=== PATIENT | female | born 1955 ===

== ENCOUNTER 2017-11-22 22:25 | Emergency (ER) | payer BC ==
--- NOTE | 2017-11-22 22:41 | Emergency Department Record ---
History of Present Illness - General Chief Complaint: Hypotension Stated Complaint: HYPOTENSION Time Seen by Provider: 11/22/17 22:35 Source: Patient Mode of Arrival: Ambulatory Limitations: No limitations - History of Present Illness Initial Comments: 62 yo female presents to ED for evaluation of low blood pressure and dizziness symptoms. Patient reports a history of lower blood pressure (low 100's systolic ), denies recent illness or use of steroids recently. Patient denies any recent medication changes either. Patient reports that she felt dizzy tonight prompting her to check her BP this evening, registered 70's systolic. Complaint: Dizziness, Lightheadedness Onset/Timin -: Hour(s) Timing: Gradual onset Description: Lightheadedness History of Trauma: No Severity: Moderate Improves With: Nothing Worsens With: Nothing Associated Symptoms: Denies other symptoms - [place] Coma Scale Eye Response: (4) Open spontaneously Motor Response: (6) Obeys commands Verbal Response: (5) Oriented [place] Total: 15 - Related Data Allergies Allergy/AdvReac Type Severity Reaction Status Date / Time pioglitazone [From [employer]] Allergy hypotension Verified 11/22/17 22:32 hx-told not to take it Review of Systems Constitutional: Denies: Chills, Fever, Malaise, Night sweats Eyes: Denies: Eye discharge, Eye pain ENT: Denies: Congestion, Ear pain, Epistaxis Respiratory: Denies: Cough, Dyspnea Cardiovascular: Denies: Chest pain, Dyspnea on exertion Endocrine: Denies: Fatigue, Heat or cold intolerance Gastrointestinal: Denies: Abdominal pain, Nausea, Vomiting Genitourinary: Denies: Incontinence, Retention Musculoskeletal: Denies: Arthralgia, Back pain, Gout, Joint swelling Skin: Denies: Bruising, Change in color Neurological: Denies: Abnormal gait, Confusion, Headache, Seizure Psychiatric: Denies: Anxiety Hematological/Lymphatic: Denies: Anemia, Blood Clots Physical Exam - General General Appearance: Alert, Oriented x3, Cooperative, Mild distress Limitations: No limitations - Head Head exam: Atraumatic, Normocephalic, Normal inspection Head exam detail: negative: Abrasion, Contusion, Husain's sign, General tenderness, Hematoma, Laceration - Eye Eye exam: Normal appearance. negative: Conjunctival injection, Periorbital swelling, Periorbital tenderness, Scleral icterus - ENT Ear exam: negative: Auricular hematoma, Auricular trauma Nasal Exam: negative: Active bleeding, Discharge, Dried blood, Foreign body Mouth exam: negative: Drooling, Laceration, Muffled voice, Tongue elevation - Neck Neck exam: Normal inspection. negative: Meningismus, Tenderness - Respiratory Respiratory exam: Decreased breath sounds. negative: Rales, Respiratory distress, Rhonchi, Stridor - Cardiovascular Cardiovascular Exam: Regular rate, Normal rhythm, Normal heart sounds - GI/Abdominal GI/Abdominal exam: Soft. negative: Rebound, Rigid, Tenderness - Rectal Rectal exam: Deferred - exam: Deferred - Extremities Extremities exam: Normal inspection. negative: Calf tenderness, Pedal edema, Tenderness - Back Back exam: Denies: CVA tenderness (R), CVA tenderness (L) - Neurological Neurological exam: Alert, Oriented X3. negative: Motor sensory deficit - Psychiatric Psychiatric exam: Normal affect, Normal mood - Skin Skin exam: Normal color. negative: Abrasion Type of lesion: negative: abrasion Course - Reevaluation(s) Reevaluation #1: 11/22/17 22:40 BP on arrival is 118/68, will obtain basic laboratory studies, initiate IVFs, obtain EKG and monitor in ED. Reevaluation #2: 11/22/17 22:49 EKG: NSR 90 Normal axis, normal intervals LVH, Q waves III, AVF, T wave inversion II, AVF, V6 No change from 09/17/17 Reevaluation #3: 11/22/17 23:42 Labs reviewed, Potassium 4.7, BUN 51, Creatinine 1.8. Glucose 254. No previous labs are available for comparison. [facility]aziz contacted to fax previous BUN/Creatinine levels to ED, patient reports history or renal insufficiency but is unaware of her GFR numbers. BP 120/63 mmHg. Reevaluation #4: 11/23/17 00:53 Abdulaziz is unable to retrieve laboratory studies from 10/04. Patient reports that she believes today's labs are near her baseline, BP 114 systolic, patient appears stable for discharge at this time. Patient reports that she is feeling much better as well. Medical Decision Making - Lab Data Result diagrams: 11/22/17 22:51 11/22/17 22:51 Disposition Disposition: Discharge Clinical Impression: Transient hypotension CRF (chronic renal failure) Qualifiers: Chronic kidney disease stage: stage 3 (moderate) Qualified Code(s): N18.3 - Chronic kidney disease, stage 3 (moderate) Disposition: Home, Self-Care Condition: (2) Stable Instructions: Hypotension (ED) Additional Instructions: Return to ED if your symptoms worsen or if you have any concerns. Follow-up with your family doctor in 3-5 days as directed. Forms: Patient Portal Access Time of Disposition: 00:55 Quality - Quality Measures Quality Measures: N/A - Blood Pressure Screening Does Patient Have Any of the Following: No Blood Pressure Classification: Normal BP Reading Systolic Measurement: 118 Diastolic Measurement: 68 Screening for High Blood Pressure: < Normal BP, F/U Not Required > [G8783]
[2017-11-22] MEDS ORDERED: 0.9 % SODIUM CHLORIDE 1000ML 1,000 ML IV SCH (22:45)
[2017-11-22 23:01] LABS: BASO % 0.8 % (0-6); EOS % 3.6 % (0-6); GRAN % 69.5 % (47-80); HEMATOCRIT 37.8 % (35.0-47.0); HEMOGLOBIN 12.3 gm/dl (11.6-16.0); LYMPH % 20.3 % (16-45); MEAN CELL VOLUME 75.9 fl (81-97); MEAN CORPUSCULAR HEMOGLOBIN 24.7 pg (27-33); MEAN CORPUSCULAR HGB CONC 32.5 g/dl (32-36); MEAN PLATELET VOLUME 11.4 fl (7.4-10.4); MONO % 5.8 % (0-9); PLATELET COUNT 326 K/uL (130-400); RED BLOOD COUNT 4.98 M/uL (3.80-5.40); RED CELL DISTRIBUTION WIDTH 15.7 % (11.5-14.5); WHITE BLOOD COUNT W/O DIFF 11.2 K/uL (4.2-12.2)
[2017-11-22 23:11] LABS: BILIRUBIN,TOTAL < 0.20 mg/dL (0.2-1.0); BLOOD UREA NITROGEN 51 mg/dL (8-23); CREATININE 1.8 mg/dL (0.5-0.9); EST GLOMERULAR FILTRATION RATE 30 mL/min
[2017-11-22 23:14] LABS: GLUCOSE,RANDOM 254 mg/dL (74-109)
[2017-11-22 23:17] LABS: ALB/GLOB RATIO 0.9 (1.1-1.8); ALBUMIN 3.4 g/dL (4.0-5.0); ALKALINE PHOSPHATASE 181 U/L (35-104); ALT/SGPT 5 U/L (<33); AST/SGOT 7 U/L (10.0-35.0)
== END 2017-11-23 01:05 | disposition home or self-care (01) ==
LOC: ER 22:25
DX: I95.89 Other hypotension (principal); E11.22 Type 2 diabetes mellitus with diabetic chronic kidney disease; N18.3 Chronic kidney disease, stage 3 (moderate); R11.0 Nausea; R51 Headache; R42 Dizziness and giddiness; I25.2 Old myocardial infarction
CPT/HCPCS: 80053; 85025; 93005; 93010; 99284; J7030

== ENCOUNTER 2018-05-07 20:37 | Emergency (ER) | payer BC ==
--- NOTE | 2018-05-07 20:51 | Emergency Department Record ---
History of Present Illness - General Chief complaint: Hypogylcemia Stated complaint: DIZZY, LOW BLOOD SUGAR Time Seen by Provider: 05/07/18 20:38 Source: Patient, Family Mode of Arrival: Ambulatory Limitations: No limitations - History of Present Illness Initial comments: 62 yo female presents not feeling well for the last two days. She states she feels fatigue, weak, dizzy. She was concerned about her blood sugar. At 8pm it was low for her at 85. She has a mild headache today. No fever, vomiting, changes in bowel movements. She states her urine has changed to an orange color. No chest pain or shortness of breath. No leg edema. She has CAD,DM,CKD ,HTN. She had an eye appointment today and was told her eyes were fine and unchanged. No vision changes, double vision. She feels like her abdomen is bloated but no vomiting or pain. She states she retains fluids in her abdomen at times. She took a Lasix prior to arrival. Her accu check on arrival was 116. MD Complaint: Generalized weakness -: Days(s) Location: Generalized Severity: Moderate Quality: Other Consistency: Constant Improves with: None Worsens with: None Context: Other Associated Symptoms: Other - [place] Coma Scale Eye Response: (4) Open spontaneously Motor Response: (6) Obeys commands Verbal Response: (5) Oriented [place] Total: 15 - Related Data Previous Rx's Medication Instructions Recorded Cephalexin [Keflex] 500 mg PO QID #28 cap 05/07/18 Allergies Allergy/AdvReac Type Severity Reaction Status Date / Time pioglitazone [From [employer]] Allergy hypotension Verified 11/22/17 22:32 hx-told not to take it Review of Systems Constitutional: Reports: Malaise, Weakness. Denies: Chills, Fever Eyes: Denies: Eye discharge, Eye pain, Photophobia, Vision change ENT: Denies: Congestion, Ear pain, Epistaxis, Throat pain Respiratory: Denies: Cough, Dyspnea, Hemoptysis, Stridor, Wheezes Cardiovascular: Denies: Chest pain, Palpitations, Syncope Endocrine: Reports: Fatigue. Denies: Polydipsia, Polyuria Gastrointestinal: Denies: Abdominal pain, Constipation, Diarrhea, Hematemesis, Hematochezia, Melena, Nausea, Vomiting Genitourinary: Reports: Dysuria, Frequency, Hematuria. Denies: Discharge, Incontinence, Retention, Urgency Musculoskeletal: Denies: Arthralgia, Back pain, Joint swelling, Myalgia, Neck pain Skin: Denies: Bruising, Change in color, Rash Neurological: Reports: Headache, Vertigo, Weakness. Denies: Abnormal gait, Confusion, Numbness, Paresthesias, Seizure, Tingling, Tremors Psychiatric: Denies: Anxiety Hematological/Lymphatic: Denies: Easy bleeding, Easy bruising, Swollen glands Past Medical History - SOCIAL HISTORY Smoking Status: Never smoker - RESPIRATORY Hx Respiratory Disorders: Yes Comment:: Sarcoidosis - CARDIOVASCULAR Hx Cardio Disorders: Yes Hx Heart Attack: Yes Hx Hypotension: Yes Comment:: high chjolesterol - NEURO Hx Neuro Disorders: Yes Hx Neuropathy: Yes - GI Hx GI Disorders: Yes Hx Irritable Bowel: Yes - Hx Genitourinary Disorders: No Comment:: blood clot L kidney - ENDOCRINE Hx Endocrine Disorders: Yes Hx Diabetes: Yes - MUSCULOSKELETAL Hx Musculoskeletal Disorders: No - PSYCH Hx Psych Problems: No - HEMATOLOGY/ONCOLOGY Hx Hematology/Oncology Disorders: No Family Medical History Hx Cancer: Mother, Brother/Sister Hx Diabetes: Mother, Brother/Sister Hx Heart Disease: Father Hx Kidney Disease: Brother/Sister Physical Exam - General General Appearance: Alert, Oriented x3, Cooperative, No acute distress Limitations: No limitations - Head Head exam: Normal inspection - Eye Eye exam: Normal appearance. negative: Conjunctival injection, Scleral icterus - ENT ENT exam: Normal exam, Mucous membranes moist Ear exam: Normal external inspection Nasal Exam: Normal inspection Mouth exam: Normal external inspection Teeth exam: Normal inspection - Neck Neck exam: Normal inspection - Respiratory Respiratory exam: Normal lung sounds bilaterally. negative: Respiratory distress, Rhonchi, Stridor, Wheezes - Cardiovascular Cardiovascular Exam: Regular rate, Normal rhythm, Normal heart sounds - GI/Abdominal GI/Abdominal exam: Soft, Other (Soft abdomen). negative: Distended, Guarding, Rebound, Rigid, Tenderness - Rectal Rectal exam: Deferred - exam: Deferred - Extremities Extremities exam: Normal inspection, Full ROM, Normal capillary refill. negative: Calf tenderness, Pedal edema, Tenderness - Back Back exam: Reports: Full ROM. Denies: CVA tenderness (R), CVA tenderness (L) - Neurological Neurological exam: Alert, CN II-XII intact, Oriented X3. negative: Altered - Psychiatric Psychiatric exam: Normal affect, Normal mood. negative: Agitated, Anxious - Skin Skin exam: Dry, Intact, Normal color, Warm. negative: Abrasion, Cyanosis, Diaphoretic, Erythema, Mottled Course Vital Signs 05/07/18 20:46 Temperature 98 F Pulse Rate [ 97 H Pulse Ox Probe] Respiratory 20 Rate Blood Pressure 154/77 [Left Arm] Pulse Ox 98 - Reevaluation(s) Reevaluation #1: EKG 2103, NSR,rate 86, intervals normal, axis normal, LVH, NS lateral changes. Similar to prior ekg on 01/07/18 Vitals reviewed. No fever or hypoxia 05/07/18 21:41 The CBC was reviewed No acute changes The CMP demonstration BUN/CR increase with likely mild dehydration UA reviewed. Contamination noted but N+,LE+ with bacteria and WBC's. 05/07/18 22:02 Repeat UA reviewed with lab. It is consistent with UTI Nitrite Positive, LE Positive, WBC 7-10, Bacteria +1 Antibiotics ordered with IVF HCT was reviewed and is negative for acute changes. 05/07/18 22:21 The patient was informed of the INR. She takes 2.5mg daily. She has not had her dose tonight. She was instructed to take 5mg then return to normal dosing and call Dr Martin tomorrow. We discussed the UTI and other results. She was encouraged to hydrate well. We discussed reasons for immediate return and follow importance. Medical Decision Making - Lab Data Result diagrams: 05/07/18 20:58 05/07/18 20:58 Lab Results 05/07/18 Range/Units 20:49 POC Glucose 116 H (70-110) mg/dL Disposition Disposition: Discharge Clinical Impression: Urinary tract infection Disposition: Home, Self-Care Condition: (1) Good Instructions: Urinary Tract Infection in Women (ED) Additional Instructions: Take 5mg of Coumadin tonight then back to your normal dose. Recheck your INR in 2-3 days Take the antibiotic every 6 hours Stay hydrated the next 2-3 days Call your doctor tomorrow for a recheck You have a culture that was went for the urinary tract infection that will be available in 3 day Return immediately if you have fever, vomiting, or any concerns that you are not improving. Prescriptions: Cephalexin [Keflex] 500 mg PO QID #28 cap Forms: Patient Portal Access Time of Disposition: 23:14 Quality - Quality Measures Quality Measures: N/A - Blood Pressure Screening Does Patient Have Any of the Following: No Blood Pressure Classification: Normal BP Reading Systolic Measurement: 114 Diastolic Measurement: 75 Screening for High Blood Pressure: < Normal BP, F/U Not Required > [G8783]
[2018-05-07 21:05] LABS: BASO % 0.6 % (0-6); EOS % 6.1 % (0-6); GRAN % 69.7 % (47-80); HEMATOCRIT 40.6 % (35.0-47.0); HEMOGLOBIN 12.8 gm/dl (11.6-16.0); LYMPH % 18.3 % (16-45); MEAN CELL VOLUME 75.2 fl (81-97); MEAN CORPUSCULAR HEMOGLOBIN 23.7 pg (27-33); MEAN CORPUSCULAR HGB CONC 31.5 g/dl (32-36); MEAN PLATELET VOLUME 10.8 fl (7.4-10.4); MONO % 5.3 % (0-9); PLATELET COUNT 303 K/uL (130-400); RED CELL DISTRIBUTION WIDTH 15.7 % (11.5-14.5); WHITE BLOOD COUNT W/O DIFF 11.9 K/uL (4.2-12.2)
[2018-05-07 21:17] LABS: PARTIAL THROMBOPLASTIN TIME 29.4 SECONDS (24.5-39.1); PROTHROMBIN TIME (PATIENT) 10.6 SECONDS (9.5-12.1)
[2018-05-07 21:18] LABS: BILIRUBIN,TOTAL < 0.20 mg/dL (0.2-1.0); BLOOD UREA NITROGEN 35 mg/dL (8-23); CREATININE 1.4 mg/dL (0.5-0.9); EST GLOMERULAR FILTRATION RATE 41 mL/min; TOTAL PROTEIN 7.3 g/dL (6.6-8.7)
[2018-05-07 21:20] LABS: GLUCOSE,RANDOM 107 mg/dL (74-109)
[2018-05-07 21:23] LABS: ALBUMIN 3.7 g/dL (4.0-5.0); ALKALINE PHOSPHATASE 189 U/L (35-104); ALT/SGPT 16 U/L (<33); AST/SGOT 13 U/L (10.0-35.0)
[2018-05-07 21:34] LABS: THYROID STIMULATING HORMONE 1.87 uIU/mL (0.270-4.20)
[2018-05-07] MEDS ORDERED: SODIUM CHLORIDE 0.9% 500 ML IV ONE (21:40)
[2018-05-07 21:51] LABS: URINE APPEARANCE CLOUDY; URINE BILIRUBIN NEGATIVE (NEGATIVE); URINE BLOOD LARGE (NEGATIVE); URINE COLOR YELLOW; URINE KETONE NEGATIVE (NEGATIVE); URINE LEUKOCYTE ESTERASE TRACE (NEGATIVE); URINE NITRITE POSITIVE (NEGATIVE); URINE UROBILINOGEN 0.2 E.U./dL (0.20 - 1.00)
[2018-05-07 21:54] LABS: URINE PROTEIN 300 mg/dL (NEGATIVE)
[2018-05-07] MEDS ORDERED: CEFTRIAXONE SODIUM 1 GM in 0.9 % SODIUM CHLORIDE 100ML 100 ML IVPB ONE (22:01)
[2018-05-07] MEDS ORDERED: CEPHALEXIN 500 MG CAPSULE PO STA (23:11)
--- NOTE | 2018-05-09 06:54 | CT SCAN REPORT ---
DATE: 05/07/2018. EXAM: CT OF THE HEAD WITHOUT CONTRAST. HISTORY: Dizziness. TECHNIQUE: Standard CT imaging through the head with coronal and sagittal reformations without intravenous contrast. COMPARISON: None. FINDINGS: The sulci and ventricles are mildly enlarged from generalized atrophy. No mass effect or midline shift. No intracranial hemorrhage or extra- axial fluid collection is identified. [place]-white matter differentiation is maintained. Minimal mucosal thickening in the right maxillary sinus without layering fluid. The calvarium is unremarkable. IMPRESSION: NEGATIVE NONCONTRAST HEAD CT FOR ACUTE INTRACRANIAL ABNORMALITY. JOB NUMBER: [id number] MTDD
== END 2018-05-07 23:25 | disposition home or self-care (01) ==
LOC: ER 20:37
DX: N39.0 Urinary tract infection, site not specified (principal); R31.29 Other microscopic hematuria; R42 Dizziness and giddiness; R53.83 Other fatigue; R53.1 Weakness; R51 Headache; I13.10 Hypertensive heart and chronic kidney disease without heart failure, with stage 1 through stage 4 chronic kidney disease, or unspecified chronic kidney disease; E11.22 Type 2 diabetes mellitus with diabetic chronic kidney disease; N18.9 Chronic kidney disease, unspecified; I25.2 Old myocardial infarction; Z79.4 Long term (current) use of insulin; Z79.01 Long term (current) use of anticoagulants
CPT/HCPCS: 36416; 70450; 80053; 81003; 82948; 83735; 83880; 84443; 85025; 85610; 85730; 93005; 93010; 96374; 99284

== ENCOUNTER 2018-08-22 20:47 | Emergency (ER) | payer BC ==
[2018-08-22 21:26] LABS: URINE APPEARANCE SL CLOUDY; URINE BILIRUBIN NEGATIVE (NEGATIVE); URINE BLOOD TRACE-I (NEGATIVE); URINE COLOR YELLOW; URINE KETONE NEGATIVE (NEGATIVE); URINE LEUKOCYTE ESTERASE SMALL (NEGATIVE); URINE NITRITE POSITIVE (NEGATIVE); URINE UROBILINOGEN 0.2 E.U./dL (0.20 - 1.00)
[2018-08-22 21:33] LABS: URINE BACTERIA 2+; URINE WBC 21 - 35 (0-2/hpf)
[2018-08-22 21:42] LABS: BASO % 0.7 % (0-6); EOS % 2.6 % (0-6); GRAN % 65.5 % (47-80); HEMATOCRIT 40.6 % (35.0-47.0); HEMOGLOBIN 12.4 gm/dl (11.6-16.0); MEAN CELL VOLUME 79.8 fl (81-97); MEAN CORPUSCULAR HEMOGLOBIN 24.4 pg (27-33); MEAN CORPUSCULAR HGB CONC 30.5 g/dl (32-36); MEAN PLATELET VOLUME 11.5 fl (7.4-10.4); MONO % 8.2 % (0-9); PLATELET COUNT 319 K/uL (130-400); RED BLOOD COUNT 5.09 M/uL (3.80-5.40); RED CELL DISTRIBUTION WIDTH 14.9 % (11.5-14.5); WHITE BLOOD COUNT W/O DIFF 10.6 K/uL (4.2-12.2)
[2018-08-22 21:51] LABS: BILIRUBIN,TOTAL 0.2 mg/dL (0.2-1.0); CREATININE 1.4 mg/dL (0.5-0.9); TOTAL PROTEIN 6.9 g/dL (6.6-8.7)
[2018-08-22 21:54] LABS: PARTIAL THROMBOPLASTIN TIME 27.6 SECONDS (24.5-39.1)
[2018-08-22 21:56] LABS: ALBUMIN 3.5 g/dL (4.0-5.0)
--- NOTE | 2018-08-22 22:01 | Emergency Department Record ---
History of Present Illness - General Chief complaint: Hypogylcemia Stated complaint: TRUBLE WALKING AND SPEAKING Time Seen by Provider: 08/22/18 21:15 Source: Patient, Family, EMS Mode of Arrival: Ambulatory Limitations: No limitations - History of Present Illness Initial comments: pt became confused and just stood staring off. her thought her bs must be low and called 911. it was 88 which is low for her. she was given glucose and seemed to improve. she then seemed to have difficulty walking and with her speech again MD Complaint: Difficulty walking, Generalized weakness Onset/Timin -: Hour(s) Location: Generalized Improves with: Other (questionably with glucose) Associated Symptoms: Denies other symptoms - [place] Coma Scale Eye Response: (4) Open spontaneously Motor Response: (6) Obeys commands Verbal Response: (5) Oriented [place] Total: 15 - Symptoms of Stroke Symptoms of stroke: Onset of Confusion, Slurred Speech, Speech Dysfunction, Unsteady When Walking - Related Data Allergies Allergy/AdvReac Type Severity Reaction Status Date / Time pioglitazone [From [place]] Allergy hypotension Unverified 05/28/18 19:29 hx-told not to take it Travel Screening - Travel/Exposure Within Last 30 Days Have you traveled within the last 30 days?: No Review of Systems Reviewed: No additional complaints except as noted below Constitutional: Reports: As per HPI. Denies: Chills, Fever, Malaise, Night sweats, Weakness, Weight change Eyes: Reports: As per HPI. Denies: Eye discharge, Eye pain, Photophobia, Vision change ENT: Reports: As per HPI. Denies: Congestion, Dental pain, Ear pain, Epistaxis , Hearing loss, Throat pain Respiratory: Reports: As per HPI. Denies: Cough, Dyspnea, Hemoptysis, Stridor, Wheezes Cardiovascular: Reports: As per HPI. Denies: Arrhythmia, Chest pain, Dyspnea on exertion, Edema, Murmurs, Orthopnea, Palpitations, Paroxysmal nocturnal dyspnea, Rheumatic Fever, Syncope Endocrine: Reports: As per HPI. Denies: Fatigue, Heat or cold intolerance, Polydipsia, Polyuria Gastrointestinal: Reports: As per HPI. Denies: Abdominal pain, Constipation, Diarrhea, Hematemesis, Hematochezia, Melena, Nausea, Vomiting Genitourinary: Reports: As per HPI. Denies: Abnormal menses, Discharge, Dyspareunia, Dysuria, Frequency, Hematuria, Incontinence, Retention, Urgency Musculoskeletal: Reports: As per HPI. Denies: Arthralgia, Back pain, Gout, Joint swelling, Myalgia, Neck pain Skin: Reports: As per HPI. Denies: Bruising, Change in color, Change in hair/ nails, Lesions, Pruritus, Rash Neurological: Reports: As per HPI. Denies: Abnormal gait, Confusion, Headache, Numbness, Paresthesias, Seizure, Tingling, Tremors, Vertigo, Weakness Psychiatric: Reports: As per HPI. Denies: Anxiety, Auditory hallucinations, Depression, Homicidal thoughts, Suicidal thoughts, Visual hallucinations Hematological/Lymphatic: Reports: As per HPI. Denies: Anemia, Blood Clots, Easy bleeding, Easy bruising, Swollen glands Past Medical History - SOCIAL HISTORY Smoking Status: Never smoker - RESPIRATORY Hx Respiratory Disorders: Yes Comment:: Sarcoidosis - CARDIOVASCULAR Hx Cardio Disorders: Yes Hx Heart Attack: Yes Hx Hypotension: Yes Comment:: high chjolesterol - NEURO Hx Neuro Disorders: Yes Hx Neuropathy: Yes - GI Hx GI Disorders: Yes Hx Irritable Bowel: Yes - Hx Genitourinary Disorders: No Comment:: blood clot L kidney - ENDOCRINE Hx Endocrine Disorders: Yes Hx Diabetes: Yes - MUSCULOSKELETAL Hx Musculoskeletal Disorders: No - PSYCH Hx Psych Problems: No - HEMATOLOGY/ONCOLOGY Hx Hematology/Oncology Disorders: No Family Medical History Any Significant Family History?: Yes Hx Cancer: Mother, Brother/Sister Hx Diabetes: Mother, Brother/Sister Hx Heart Disease: Father Hx Kidney Disease: Brother/Sister Physical Exam - General General Appearance: Alert, Oriented x3, Cooperative, Mild distress - Head Head exam: Normal inspection - Eye Eye exam: Normal appearance, PERRL, EOMI Pupils: Normal accommodation - ENT ENT exam: Normal exam, Mucous membranes moist, Normal external ear exam, Normal orophraynx Ear exam: Normal external inspection. negative: External canal tenderness Nasal Exam: Normal inspection. negative: Discharge, Sinus tenderness Mouth exam: Normal external inspection, Tongue normal Teeth exam: Normal inspection. negative: Dental caries Throat exam: Normal inspection. negative: Tonsillar erythema, Tonsillar exudate - Neck Neck exam: Normal inspection, Full ROM. negative: Tenderness - Respiratory Respiratory exam: Normal lung sounds bilaterally. negative: Respiratory distress - Cardiovascular Cardiovascular Exam: Regular rate, Normal rhythm, Normal heart sounds - GI/Abdominal GI/Abdominal exam: Soft, Normal bowel sounds. negative: Tenderness - Rectal Rectal exam: Deferred - exam: Deferred - Extremities Extremities exam: Normal inspection, Full ROM, Normal capillary refill. negative: Tenderness - Back Back exam: Reports: Normal inspection, Full ROM. Denies: Muscle spasm, Rash noted, Tenderness - Neurological Neurological exam: Alert, CN II-XII intact, Oriented X3, Other (intermittant gate and speech disturbence). negative: Normal gait - Psychiatric Psychiatric exam: Normal affect, Normal mood - Skin Skin exam: Dry, Intact, Normal color, Warm Stroke Assessment - NIH Stroke Scale 1a. Level of Consciousness: (0) Alert 1b. LOC Questions: (1) Answers 1 Question Correctly 1c. LOC Commands: (0) Performs Tasks Correctly 2. Best Gaze: (0) Normal 3. Visual: (0) No Visual Loss 4. Facial Palsy: (0) Normal Symmetrical Movement 5a. Motor Arm Left: (0) No Drift 5b. Motor Arm Right: (0) No Drift 6a. Motor Leg Left: (0) No Drift 6b. Motor Leg Right: (0) No Drift 7. Limb Ataxia: (2) Present 2 Limbs 8. Sensory: (0) Normal 9. Best Language: (1) Mild/Moderate Aphasia 10. Dysarthria: (0) Normal 11. Extinction/Inattention: (0) No Abnormality NIH Stoke Scale Total: 4 Course Vital Signs 08/22/18 20:51 Temperature 98.2 F Pulse Rate [ 97 H Pulse Ox Probe] Respiratory 20 Rate Blood Pressure 171/85 [Right Arm] Pulse Ox 97 - Reevaluation(s) Reevaluation #1: 08/22/18 22:54 pt had a stuttering course of waxing and waning symptoms. she would have expressive aphasia and ataxia and then improve. currently she once again has expressive aphasia and is unable to answer questions. case was d/w dr lara who wants tpa to be given. risks and benefits explained to including bleedin. is aware. Reevaluation #2: 08/22/18 23:17 pt has improved and is now answering questions appropriately Reevaluation #3: 08/22/18 23:44 pt continues to improve Medical Decision Making - Lab Data Result diagrams: 08/22/18 21:34 08/22/18 21:34 Lab Results 08/22/18 08/22/18 08/22/18 Range/Units 20:52 21:27 21:33 WBC (4.2-12.2) K/uL RBC (3.80-5.40) M/uL Hgb (11.6-16.0) gm/dl Hct (35.0-47.0) % MCV (81-97) fl MCH (27-33) pg MCHC (32-36) g/dl RDW (11.5-14.5) % Plt Count (130-400) K/uL MPV (7.4-10.4) fl Gran % (47-80) % Lymphocytes % (16-45) % Monocytes % (0-9) % Eosinophils % (0-6) % Basophils % (0-6) % PT (9.5-12.1) SECONDS INR APTT (24.5-39.1) SECONDS Sodium (136-145) mmol/L Potassium (3.4-4.5) mmol/L Chloride (98-107) mmol/L Carbon Dioxide (22-29) mmol/L Anion Gap (7-16) BUN (8-23) mg/dL Creatinine (0.5-0.9) mg/dL Estimated GFR mL/min POC Glucose 90 Cancelled (70-110) mg/dL Random Glucose (74-109) mg/dL Calcium (8.8-10.2) mg/dL Total Bilirubin (0.2-1.0) mg/dL AST (10.0-35.0) U/L ALT (<33) U/L Alkaline Phosphatase (35-104) U/L Total Protein (6.6-8.7) g/dL Albumin (4.0-5.0) g/dL Globulin (1.4-4.8) gm/dL Albumin/Globulin Ratio (1.1-1.8) Urine Color Yellow Urine Appearance Sl cloudy Urine pH 6.0 (5.0-8.0) Ur Specific Schroeder 1.020 (1.002-1.030) Urine Protein 100 mg/dl H (NEGATIVE) Urine Glucose (UA) 500 mg/dl H (NEGATIVE) Urine Ketones Negative (NEGATIVE) Urine Blood Trace-i (NEGATIVE) Urine Nitrite Positive H (NEGATIVE) Urine Bilirubin Negative (NEGATIVE) Urine Urobilinogen 0.2 (0.20 - 1.00) E.U./dL Ur Leukocyte Esterase Small H (NEGATIVE) Urine RBC 3 - 6 (NONE SEEN) Urine WBC 21 - 35 (0-2/hpf) Ur Epithelial Cells 7 - 10 (FEW) Urine Bacteria 2+ 08/22/18 08/22/18 08/22/18 Range/Units 21:34 21:34 21:34 WBC 10.6 (4.2-12.2) K/uL RBC 5.09 (3.80-5.40) M/uL Hgb 12.4 (11.6-16.0) gm/dl Hct 40.6 (35.0-47.0) % MCV 79.8 L (81-97) fl MCH 24.4 L (27-33) pg MCHC 30.5 L (32-36) g/dl RDW 14.9 H (11.5-14.5) % Plt Count 319 (130-400) K/uL MPV 11.5 H (7.4-10.4) fl Gran % 65.5 (47-80) % Lymphocytes % 23.0 (16-45) % Monocytes % 8.2 (0-9) % Eosinophils % 2.6 (0-6) % Basophils % 0.7 (0-6) % PT 10.0 (9.5-12.1) SECONDS INR 1.0 APTT 27.6 (24.5-39.1) SECONDS Sodium 142 (136-145) mmol/L Potassium 4.3 (3.4-4.5) mmol/L Chloride 100 (98-107) mmol/L Carbon Dioxide 26.0 (22-29) mmol/L Anion Gap 16.0 (7-16) BUN 30 H (8-23) mg/dL Creatinine 1.4 H (0.5-0.9) mg/dL Estimated GFR 40 mL/min POC Glucose (70-110) mg/dL Random Glucose 91 (74-109) mg/dL Calcium 9.3 (8.8-10.2) mg/dL Total Bilirubin 0.20 (0.2-1.0) mg/dL AST 19 (10.0-35.0) U/L ALT 17 (<33) U/L Alkaline Phosphatase 142 H (35-104) U/L Total Protein 6.9 (6.6-8.7) g/dL Albumin 3.5 L (4.0-5.0) g/dL Globulin 3.4 (1.4-4.8) gm/dL Albumin/Globulin Ratio 1.0 L (1.1-1.8) Urine Color Urine Appearance Urine pH (5.0-8.0) Ur Specific [place] (1.002-1.030) Urine Protein (NEGATIVE) Urine Glucose (UA) (NEGATIVE) Urine Ketones (NEGATIVE) Urine Blood (NEGATIVE) Urine Nitrite (NEGATIVE) Urine Bilirubin (NEGATIVE) Urine Urobilinogen (0.20 - 1.00) E.U./dL Ur Leukocyte Esterase (NEGATIVE) Urine RBC (NONE SEEN) Urine WBC (0-2/hpf) Ur Epithelial Cells (FEW) Urine Bacteria 08/22/18 Range/Units 21:43 WBC (4.2-12.2) K/uL RBC (3.80-5.40) M/uL Hgb (11.6-16.0) gm/dl Hct (35.0-47.0) % MCV (81-97) fl MCH (27-33) pg MCHC (32-36) g/dl RDW (11.5-14.5) % Plt Count (130-400) K/uL MPV (7.4-10.4) fl Gran % (47-80) % Lymphocytes % (16-45) % Monocytes % (0-9) % Eosinophils % (0-6) % Basophils % (0-6) % PT (9.5-12.1) SECONDS INR APTT (24.5-39.1) SECONDS Sodium (136-145) mmol/L Potassium (3.4-4.5) mmol/L Chloride (98-107) mmol/L Carbon Dioxide (22-29) mmol/L Anion Gap (7-16) BUN (8-23) mg/dL Creatinine (0.5-0.9) mg/dL Estimated GFR mL/min POC Glucose 116 H (70-110) mg/dL Random Glucose (74-109) mg/dL Calcium (8.8-10.2) mg/dL Total Bilirubin (0.2-1.0) mg/dL AST (10.0-35.0) U/L ALT (<33) U/L Alkaline Phosphatase (35-104) U/L Total Protein (6.6-8.7) g/dL Albumin (4.0-5.0) g/dL Globulin (1.4-4.8) gm/dL Albumin/Globulin Ratio (1.1-1.8) Urine Color Urine Appearance Urine pH (5.0-8.0) Ur Specific [place] (1.002-1.030) Urine Protein (NEGATIVE) Urine Glucose (UA) (NEGATIVE) Urine Ketones (NEGATIVE) Urine Blood (NEGATIVE) Urine Nitrite (NEGATIVE) Urine Bilirubin (NEGATIVE) Urine Urobilinogen (0.20 - 1.00) E.U./dL Ur Leukocyte Esterase (NEGATIVE) Urine RBC (NONE SEEN) Urine WBC (0-2/hpf) Ur Epithelial Cells (FEW) Urine Bacteria Disposition Disposition: Transfer Clinical Impression: Altered mental status Qualifiers: Altered mental status type: unspecified Qualified Code(s): R41.82 - Altered mental status, unspecified Stroke Qualifiers: CVA mechanism: unspecified Qualified Code(s): I63.9 - Cerebral infarction, unspecified UTI (urinary tract infection) Qualifiers: Urinary tract infection type: acute cystitis Hematuria presence: without hematuria Qualified Code(s): N30.00 - Acute cystitis without hematuria Disposition: Acute Care Hospital Transfer Transfer To: [facility] Reason For Transfer: needs neuro Accepting Physician: kristen romano Time Discussed w/Accepting Physician: 22:45 Forms: Patient Portal Access Quality - Quality Measures Quality Measures: N/A - Blood Pressure Screening Does Patient Have Any of the Following: Active Dx of HTN Blood Pressure Classification: Hypertensive Reading Systolic Measurement: 150 Diastolic Measurement: 78 Screening for High Blood Pressure: Patient Exclusion, Hx of HTN [G9744]
[2018-08-22] MEDS ORDERED: ALTEPLASE 100 MG VIAL IV ONE (23:06)
== END 2018-08-23 00:05 | disposition short-term general hospital (02) ==
LOC: ER 20:47
DX: I63.9 Cerebral infarction, unspecified (principal); R47.01 Aphasia; R27.0 Ataxia, unspecified; N39.0 Urinary tract infection, site not specified; E11.9 Type 2 diabetes mellitus without complications; Z79.84 Long term (current) use of oral hypoglycemic drugs; D86.9 Sarcoidosis, unspecified; E78.00 Pure hypercholesterolemia, unspecified
CPT/HCPCS: 99285 ×2; 96365; 85025; 85730; 85610; 80053; 36416; 81001; 82948; 70450; J2997; 93005; 93010

== ENCOUNTER 2018-11-28 18:27 | Emergency (ER) | payer BC ==
--- NOTE | 2018-11-28 18:56 | Emergency Department Record ---
History of Present Illness - General Chief Complaint: Edema Stated Complaint: VISION PROBLEMS/SWELLING IN FEET Time Seen by Provider: 11/28/18 18:40 Source: Patient, Family Mode of Arrival: Wheelchair - History of Present Illness Initial Comments: 63 yo female presents with about two hours of transient vision alteration. She states at 3 pm everything felt like it was upside down. She stated her appeared upside down. When she later got up things returned to normal. She did not feel any loss of vision, double vision, or pain with vision. This occurred while laying down taking a nap. The symptoms resolved by 5pm and are gone currently. She states when she got up she noted the symptoms were gone. She reports she did have a stroke in August and was treated at [facility]. She has chronic right sided weakness with speech slurring that is currently at her baseline. No other new weakness, numbness or neurologic concerns. She reports two day so swelling in her feet as well. She has a history of CHF. PCP Bri[facility], Neuro [facility], [facility]. She was admitted to [facility] on November 21 with worsening aphasia and right side weakness with low blood pressures that resolved when BP correct. Work up was negative for new stroke. Stroke Team Consult was completed, CT and MRI. She was diagnosed with a UTI during that visit. Onset/Timin -: Hour(s) Location: Other (vision changes) Place: Home Severity: Mild Quality: Other Improves With: None Worsens With: None Context: Other Associated Symptoms: Denies other symptoms - Related Data Allergies/Adverse Reactions: Allergies Allergy/AdvReac Type Severity Reaction Status Date / Time pioglitazone [From Actos] Allergy hypotension Unverified 11/21/18 07:33 hx-told not to take it Travel Screening - Travel/Exposure Within Last 30 Days Have you traveled within the last 30 days?: No Review of Systems Constitutional: Denies: Chills, Fever, Malaise, Weakness Eyes: Reports: Vision change (resolved). Denies: Eye discharge, Eye pain, Photophobia ENT: Denies: Congestion, Throat pain Respiratory: Denies: Cough Cardiovascular: Denies: Chest pain, Syncope Endocrine: Denies: Fatigue Gastrointestinal: Denies: Abdominal pain, Diarrhea, Nausea, Vomiting Genitourinary: Denies: Dysuria Musculoskeletal: Denies: Arthralgia, Back pain, Myalgia Skin: Denies: Bruising, Change in color, Rash Neurological: Reports: Other (Baseline slurred speech with right side weakness) . Denies: Abnormal gait, Confusion, Headache, Numbness, Paresthesias, Seizure, Tingling, Tremors, Vertigo, Weakness Psychiatric: Denies: Anxiety Hematological/Lymphatic: Denies: Anemia Past Medical History - SOCIAL HISTORY Smoking Status: Never smoker - RESPIRATORY Hx Respiratory Disorders: Yes Comment:: Sarcoidosis - CARDIOVASCULAR Hx Cardio Disorders: Yes Hx Heart Attack: Yes Hx Hypotension: Yes Comment:: high chjolesterol - NEURO Hx Neuro Disorders: Yes Hx CVA: Yes () Hx Neuropathy: Yes - GI Hx GI Disorders: Yes Hx Irritable Bowel: Yes - Hx Genitourinary Disorders: No Comment:: blood clot L kidney - ENDOCRINE Hx Endocrine Disorders: Yes Hx Diabetes: Yes - MUSCULOSKELETAL Hx Musculoskeletal Disorders: No - PSYCH Hx Psych Problems: No - HEMATOLOGY/ONCOLOGY Hx Hematology/Oncology Disorders: No Family Medical History Any Significant Family History?: Yes Hx Cancer: Mother, Brother/Sister Hx Diabetes: Mother, Brother/Sister Hx Heart Disease: Father Hx Kidney Disease: Brother/Sister Physical Exam - General General Appearance: Alert, Oriented x3, Cooperative, No acute distress Limitations: No limitations - Head Head exam: Atraumatic, Normocephalic, Normal inspection Head exam detail: negative: Abrasion, Contusion, Laceration - Eye Eye exam: Normal appearance, PERRL, EOMI, Other (No deficit in all 4 quandrants of both eyes, sees movement, counts fingers, ). negative: Conjunctival injection, Nystagmus, Periorbital swelling, Periorbital tenderness Pupils: Normal accommodation. negative: Irregular, Unequal - ENT ENT exam: Normal exam, Mucous membranes moist Ear exam: Normal external inspection Nasal Exam: Normal inspection Mouth exam: Normal external inspection Teeth exam: Normal inspection Throat exam: Normal inspection - Neck Neck exam: Normal inspection, Full ROM. negative: Tenderness - Respiratory Respiratory exam: Normal lung sounds bilaterally. negative: Respiratory distress - Cardiovascular Cardiovascular Exam: Regular rate, Normal rhythm, Normal heart sounds Peripheral Pulses: 2+: Radial (R), Radial (L) - GI/Abdominal GI/Abdominal exam: Soft. negative: Tenderness - Rectal Rectal exam: Deferred - exam: Deferred - Extremities Extremities exam: Normal inspection, Pedal edema (+1 in feet) - Back Back exam: Denies: CVA tenderness (R), CVA tenderness (L) - Neurological Neurological exam: Alert, CN II-XII intact, Motor sensory deficit (Mild chronic stable RLE weakness. She is able to overcome gravity easily but less than Left) , Oriented X3, Other (No drift of bilateral upper extremities). negative: Altered - Psychiatric Psychiatric exam: Normal affect, Normal mood - Skin Skin exam: Dry, Intact, Normal color, Warm Course Vital Signs 11/28/18 18:44 Temperature 97.9 F Pulse Rate [ 89 Pulse Ox Probe] Respiratory 16 Rate Blood Pressure 186/105 [Left Arm] Pulse Ox 97 - Reevaluation(s) Reevaluation #1: EKG#1 18:36 Sinus rhythm, rate 88, intervals normal, axis normal, ST LVH with strain, poor R wave, NO changes from the prior EKG on 08/22/18 11/28/18 18:57 11/28/18 18:58 The patient is at her baseline with mild dysarthria and mild RLE drift No new current neurologic deficits on examination. No subjective or objective vision changes currently. 11/28/18 19:30 EMR reviewed. The patient was admitted to [facility] on November 21, CT, MRI, Neuro consult. Neuro consult: "right side weak, aphasia", Transient symptoms with low blood pressure. Occlusion of the ICA. She is symptomatic with hypotension. Treat with permissive hypertension. Impression. No new stroke. re-expression due to low blood pressure and UTI. Stroke team signed off. MRI reviewed 11/28/18 19:37 The CMP was reviewed No acute changes The INR is 1.2 11/28/18 20:10 Resting comfortably, remains at baseline 11/28/18 20:54 No acute process or changes on the HCT. Old infarct noted. The patient is at her baseline, asymptomatic We discussed her INR. Coumadin 5mg given in the ED No acute changes on the CT. She had atypical symptoms of things being upside down resolved. She had completed a thorough work up in the last week at [facility] without any new stroke DC with instructions for return/follow up Medical Decision Making - Lab Data Result diagrams: 11/28/18 18:45 11/28/18 18:45 Disposition Disposition: Discharge Clinical Impression: Vision changes Disposition: Home, Self-Care Condition: (1) Good Instructions: Leg Edema (ED) Additional Instructions: Return or be seen immediately if any symptoms return Call your doctor on Saturday for close follow up of this ED visit to review the tests and results Resume your normal Coumadin dosing Check your INR first of the week Take the Lasix Saturday and Saturday only and call your doctor for a recheck first of the week Forms: Patient Portal Access Time of Disposition: 21:01 Quality - Quality Measures Quality Measures: N/A - Blood Pressure Screening Does Patient Have Any of the Following: Active Dx of HTN Blood Pressure Classification: Hypertensive Reading Systolic Measurement: 164 Diastolic Measurement: 93 Screening for High Blood Pressure: Patient Exclusion, Hx of HTN [G9744]
[2018-11-28 18:58] LABS: EOS % 4.6 % (0-6); GRAN % 63.6 % (47-80); HEMATOCRIT 40.4 % (35.0-47.0); HEMOGLOBIN 12.8 gm/dl (11.6-16.0); LYMPH % 24.6 % (16-45); MEAN CELL VOLUME 78.1 fl (81-97); MEAN CORPUSCULAR HEMOGLOBIN 24.8 pg (27-33); MEAN CORPUSCULAR HGB CONC 31.7 g/dl (32-36); MEAN PLATELET VOLUME 11.1 fl (7.4-10.4); MONO % 6.2 % (0-9); PLATELET COUNT 321 K/uL (130-400); RED BLOOD COUNT 5.17 M/uL (3.80-5.40); RED CELL DISTRIBUTION WIDTH 15.7 % (11.5-14.5); WHITE BLOOD COUNT W/O DIFF 9.8 K/uL (4.2-12.2)
[2018-11-28 19:18] LABS: ALB/GLOB RATIO 0.9 (1.1-1.8); ALBUMIN 3.4 g/dL (4.0-5.0); ALKALINE PHOSPHATASE 214 U/L (45-87); ALT/SGPT 26 U/L (<33); AST/SGOT 22 U/L (10.0-35.0); BLOOD UREA NITROGEN 15 mg/dL (8-23); CREATININE 0.8 mg/dL (0.5-0.9); EST GLOMERULAR FILTRATION RATE > 60 mL/min; GLUCOSE,RANDOM 78 mg/dL (74-109); INR 1.2; PARTIAL THROMBOPLASTIN TIME 33.8 SECONDS (24.5-39.1); PROTHROMBIN TIME (PATIENT) 12.4 SECONDS (9.5-12.1); TOTAL PROTEIN 7.3 g/dL (6.6-8.7)
[2018-11-28 20:32] LABS: URINE APPEARANCE CLEAR; URINE BILIRUBIN NEGATIVE (NEGATIVE); URINE BLOOD SMALL (NEGATIVE); URINE COLOR YELLOW; URINE KETONE NEGATIVE (NEGATIVE); URINE LEUKOCYTE ESTERASE NEGATIVE (NEGATIVE); URINE NITRITE NEGATIVE (NEGATIVE); URINE UROBILINOGEN 0.2 E.U./dL (0.20 - 1.00)
[2018-11-28] MEDS ORDERED: WARFARIN 5 MG TAB PO ONE (20:53)
[2018-11-28] MEDS ORDERED: FUROSEMIDE 20 MG TABLET PO ONE ×2 (21:02)
--- NOTE | 2018-11-30 21:05 | CT SCAN REPORT ---
EXAM: CT SCAN HEAD WO CONTRAST HISTORY: TRANSIENT VISUAL CHANGES. HISTORY OF STROKE 08/22/2018. TECHNIQUE: Noncontrast head CT. COMPARISON: Head CT 05/07/2018 and comparison with a prior MRI of the brain report dated 11/22/2018. FINDINGS: Hypodensity is present in the left centrum semiovale and left periventricular region, most likely related to old infarct. There is no mass or mass effect. No intra or extraaxial hemorrhage seen. The ventricles and subarachnoid spaces are mildly prominent but unchanged. No fracture or acute osseous abnormality identified. Mild mucosal thickening seen in the maxillary sinuses. Orbits are unremarkable. No orbital mass identified. IMPRESSION: 1. 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 2. NO MASS, HEMORRHAGE, OR ACUTE INTRACRANIAL PROCESS. 3. MILD BILATERAL MAXILLARY SINUS MUCOSAL THICKENING. JOB NUMBER: [id number] MTDD
== END 2018-11-28 21:26 | disposition home or self-care (01) ==
LOC: ER 18:27
DX: H53.129 Transient visual loss, unspecified eye (principal); R60.0 Localized edema; I95.9 Hypotension, unspecified; I69.351 Hemiplegia and hemiparesis following cerebral infarction affecting right dominant side; I25.2 Old myocardial infarction; E11.9 Type 2 diabetes mellitus without complications; I10 Essential (primary) hypertension; Z79.84 Long term (current) use of oral hypoglycemic drugs; Z79.4 Long term (current) use of insulin; Z79.01 Long term (current) use of anticoagulants
CPT/HCPCS: 70450; 80053; 81003; 83880; 84484; 85025; 85610; 85730; 93005; 93010; 99284

== ENCOUNTER 2019-06-18 16:27 | Emergency (ER) | payer BC ==
--- NOTE | 2019-06-18 17:08 | Emergency Department Record ---
History of Present Illness - General Chief complaint: Eye Problem Stated complaint: ABNORMAL LABS Time Seen by Provider: 06/18/19 16:52 Source: Patient, Family Mode of Arrival: Ambulatory Limitations: No limitations - History of Present Illness Initial comments: The patient is here due to complaints of double vision when looking down for the last 8 days. She has no double vision when looking up or to the sides. She also denies any head pain or blurred vision. The patient has a hx of multiple medical problems including diabetes, renal failure and a recent CVA and is on Coumadin. The patient was [facility] in the [place] office 3 days ago and had an ESR drawn that was 73. Due to that she was told to go to the ER but the patient was not told why. The patient also states the Eye doctor told her that her exam was normal at the visit. MD chief complaint: Vision change, Other Onset/Timin -: Days(s) Location: Both eyes Place: Home Context: History of glaucoma - Related Data Allergies Allergy/AdvReac Type Severity Reaction Status Date / Time pioglitazone [From Actos] Allergy hypotension Verified 06/18/19 16:58 hx-told not to take it Travel Screening - Travel/Exposure Within Last 30 Days Have you traveled within the last 30 days?: No - Travel/Exposure Within Last Year Have you traveled outside the [place] in the last year?: No - Additonal Travel Details Have you been exposed to anyone with a communicable illness?: No - Travel Symptoms Symptom Screening: None Review of Systems Constitutional: Denies: Chills, Fever Eyes: Denies: Eye discharge, Eye pain, Photophobia ENT: Denies: Congestion Respiratory: Denies: Cough, Dyspnea Cardiovascular: Denies: Arrhythmia Endocrine: Denies: Fatigue Gastrointestinal: Denies: Nausea Genitourinary: Denies: Dysuria Musculoskeletal: Denies: Arthralgia Skin: Denies: Bruising Past Medical History - SOCIAL HISTORY Smoking Status: Never smoker Alcohol Use: None Drug Use: None - RESPIRATORY Hx Respiratory Disorders: Yes Comment:: Sarcoidosis - CARDIOVASCULAR Hx Cardio Disorders: Yes Hx Heart Attack: Yes Hx Hypotension: Yes Comment:: high chjolesterol - NEURO Hx Neuro Disorders: Yes Hx CVA: Yes () - GI Hx GI Disorders: Yes Hx Irritable Bowel: Yes - Hx Genitourinary Disorders: No Comment:: blood clot L kidney - ENDOCRINE Hx Endocrine Disorders: Yes Hx Diabetes: Yes - MUSCULOSKELETAL Hx Musculoskeletal Disorders: No - PSYCH Hx Psych Problems: No - HEMATOLOGY/ONCOLOGY Hx Hematology/Oncology Disorders: No Family Medical History Any Significant Family History?: No Hx Cancer: Mother, Brother/Sister Hx Diabetes: Mother, Brother/Sister Hx Heart Disease: Father Hx Kidney Disease: Brother/Sister Physical Exam - General General Appearance: Alert, Oriented x3, Cooperative, No acute distress - Head Head exam: Atraumatic, Normocephalic, Normal inspection, Other (There is no scalp tenderness.) - Eye Eye exam: Normal appearance, PERRL, EOMI. negative: Conjunctival injection Visual acuity (L) = 20/: 40 Visual acuity (R) = 20/: 50 With correction: No - ENT Throat exam: Normal inspection. negative: Tonsillar erythema, Tonsillar exudate - Neck Neck exam: Normal inspection, Full ROM. negative: Tenderness - Respiratory Respiratory exam: Normal lung sounds bilaterally. negative: Respiratory distress - Cardiovascular Cardiovascular Exam: Regular rate, Normal rhythm, Normal heart sounds - GI/Abdominal GI/Abdominal exam: Soft, Normal bowel sounds. negative: Tenderness - Extremities Extremities exam: Normal inspection, Full ROM, Normal capillary refill. negative: Tenderness - Neurological Neurological exam: Abnormal gait (chronic and stable.), Alert, Motor sensory deficit (The patient's motor and sensory appear 5/5 bilaterally and equal. The patient does have balance issues since her CVA and uses a walker. ), Oriented X3, Reflexes normal. negative: Altered, Normal gait - Psychiatric Psychiatric exam: negative: Anxious Course Vital Signs 06/18/19 16:44 Pulse Rate 89 Respiratory 16 Rate Blood Pressure 159/89 Pulse Ox 98 - Reevaluation(s) Reevaluation #1: The patient is doing well at this time. She denies any new symptoms and has no blurred vision, arm or leg numbness, weakness or any headache. I have attempted to contact the patient Opthomologist but have been unsuccessful due to the answering service refusing to contact the television news video editor physician due to [facility] not being part of [facility]. I have discussed the case at length with Dr. Lamar who is the patient's PCP and he will F/U with the Opthomologist tomorrow and also will call the patient for further evaluation. Since the patient has no DOBSON, blurred vision, temporal artery tenderness or body aches I do not feel the patient is having an acute attack of giant cell arteritis. 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 Since she has NO other new neurological symptoms and the double vision when looking down has been stable for 8 days and unchanged I do not feel she will need inpatient treatment. Dr. Lamar did agree with this plan also. The patient did have an ESR of 46 7 months ago and does have Sarcoidosis so the elevated ESR most likely is due to that disease. 06/18/19 18:43 Medical Decision Making - Data Complexity MDM Data: Labs Ordered and/or Reviewed, X-Ray Ordered and/or Reviewed - Lab Data Result diagrams: 06/18/19 17:45 06/18/19 17:45 - Radiology Data Radiology results: Report reviewed (Head CT: Neg for any acute changes.) Disposition Disposition: Discharge Clinical Impression: Diplopia Disposition: Home, Self-Care Condition: (2) Stable Instructions: Diplopia (ED) Additional Instructions: Please call Dr. Lamar's office tomorrow for further evaluation. Please continue your regular medicines and return to the ER for any worsening issues or visual changes. Forms: Patient Portal Access Time of Disposition: 19:07 Quality - Quality Measures Quality Measures: N/A - Blood Pressure Screening View Details: Yes Does Patient Have Any of the Following: No Blood Pressure Classification: Pre-Hypertensive BP Reading Systolic Measurement: 159 Diastolic Measurement: 89 Screening for High Blood Pressure: < Pre-Hypertensive BP, F/U Documented > [G8950] Pre-Hypertensive Follow-up Interventions: Referral to alternative/primary care provider.
[2019-06-18 17:53] LABS: ABSOLUTE NEUTROPHIL COUNT 5.83; BASO % 0.5 % (0-6); GRAN % 66.6 % (47-80); HEMATOCRIT 36.7 % (35.0-47.0); HEMOGLOBIN 11.2 gm/dl (11.6-16.0); LYMPH % 22.7 % (16-45); MEAN CELL VOLUME 78.9 fl (81-97); MEAN CORPUSCULAR HGB CONC 30.5 g/dl (32-36); MEAN PLATELET VOLUME 11.1 fl (7.4-10.4); MONO % 7.2 % (0-9); PLATELET COUNT 292 K/uL (130-400); RED BLOOD COUNT 4.65 M/uL (3.80-5.40); RED CELL DISTRIBUTION WIDTH 14.9 % (11.5-14.5); WHITE BLOOD COUNT W/O DIFF 8.8 K/uL (4.2-12.2)
[2019-06-18 18:01] LABS: CREATININE 1.5 mg/dL (0.5-0.9)
[2019-06-18 18:04] LABS: INR 1.7; PARTIAL THROMBOPLASTIN TIME 33.8 SECONDS (24.5-39.1); PROTHROMBIN TIME (PATIENT) 16.6 SECONDS (9.5-12.1)
[2019-06-18 18:17] LABS: THYROID STIMULATING HORMONE 2.67 uIU/mL (0.270-4.20)
[2019-06-18 18:55] LABS: ERYTHROCYTE SEDIMENTATION RATE 75 mm/hr (0-30)
--- NOTE | 2019-06-21 19:27 | CT SCAN REPORT ---
EXAM: CT SCAN HEAD WO CONTRAST HISTORY: DIPLOPIA WHEN LOOKING DOWN, DIZZINESS, VERTIGO. TECHNIQUE: Standard CT imaging of the brain without intravenous contrast. COMPARISON: 11/28/18. HAND DOMINANCE: Right. FINDINGS: Mild sulcal and ventricular prominence from generalized volume loss. No significant mass effect or midline shift. No intracranial hemorrhage or extraaxial fluid collection is identified. Patchy hypodensity in the white matter is nonspecific but likely chronic small vessel ischemic changes. There is a small remote infarct in the left periventricular white matter. The visualized paranasal sinuses and mastoid air cells are clear. IMPRESSION: STABLE NONCONTRAST HEAD CT WITHOUT ACUTE INTRACRANIAL ABNORMALITY. JOB NUMBER: [id number] MTDD
== END 2019-06-18 19:15 | disposition home or self-care (01) ==
LOC: ER 16:27
DX: H53.2 Diplopia (principal); E11.22 Type 2 diabetes mellitus with diabetic chronic kidney disease; N18.9 Chronic kidney disease, unspecified; I25.2 Old myocardial infarction; Z79.01 Long term (current) use of anticoagulants; Z86.73 Personal history of transient ischemic attack (TIA), and cerebral infarction without residual deficits
CPT/HCPCS: 70450; 80048; 84443; 85025; 85610; 85651; 85730; 99284

== ENCOUNTER 2019-07-07 10:07 | Emergency (ER) | payer BC ==
[2019-07-07] MEDS ORDERED: 0.9 % SODIUM CHLORIDE 1000ML 1,000 ML IV ONE ×2 (10:17→11:30)
[2019-07-07] MEDS ORDERED: ONDANSETRON HCL IV 4 MG/2 ML VIAL IVP ONE (10:17)
--- NOTE | 2019-07-07 10:24 | Emergency Department Record ---
History of Present Illness - General Chief complaint: Vomiting Stated complaint: VOMITING Time Seen by Provider: 07/07/19 10:11 Source: Patient Mode of Arrival: Wheelchair Limitations: No limitations - History of Present Illness Initial comments: 63 yo female presents with nausea and vomiting. She was seen in the [facility] and sent to the ED. The onset was 24 hours ago. She states she thinks she had bad chicken and rice. She has been throwing up since 10am yesterday. No abdominal pain. No chest pain. No back pain. No extremity pain. No shortness of breath. No fever. No diarrhea. Other than the recurrent nausea and vomiting she has no other symptoms. No blood in the emesis. She did start a new medication on 06/26. Abatosarthak. Dr Lamar is her PCP. MD complaint: Nausea, Vomiting Onset/Timin -: Days(s) Description of Vomiting: Watery Description of Diarrhea: Water Associated Abdominal Pain: No Location: Other (No pain) Radiation: None Quality: Other (No pain) Consistency: Constant Improves with: None Worsens with: None Context: Other Associated Symptoms: Nausea/vomiting - Related Data Previous Rx's Medication Instructions Recorded Cephalexin [Keflex] 500 mg PO TID #21 cap 07/07/19 Ondansetron [Zofran Odt] 4 mg PO Q8H #15 tab.rapdis 07/07/19 Allergies Allergy/AdvReac Type Severity Reaction Status Date / Time pioglitazone [From Actos] Allergy hypotension Verified 07/07/19 10:12 hx-told not to take it Travel Screening - Travel/Exposure Within Last 30 Days Have you traveled within the last 30 days?: No Review of Systems Constitutional: Reports: Weakness. Denies: Chills, Fever, Malaise, Night sweats Eyes: Denies: Eye discharge, Eye pain, Photophobia, Vision change ENT: Denies: Congestion, Throat pain Respiratory: Denies: Cough, Dyspnea, Hemoptysis, Stridor, Wheezes Cardiovascular: Denies: Chest pain, Dyspnea on exertion, Palpitations, Syncope Endocrine: Reports: Fatigue. Denies: Polydipsia, Polyuria Gastrointestinal: Reports: Nausea, Vomiting. Denies: Abdominal pain, Constipation, Diarrhea, Hematemesis, Hematochezia, Melena Genitourinary: Denies: Dysuria, Urgency Musculoskeletal: Denies: Arthralgia, Back pain, Joint swelling, Myalgia Skin: Denies: Bruising, Change in color, Rash Neurological: Denies: Headache, Numbness, Weakness Psychiatric: Denies: Anxiety Hematological/Lymphatic: Denies: Easy bleeding, Easy bruising Past Medical History - SOCIAL HISTORY Smoking Status: Never smoker - RESPIRATORY Hx Respiratory Disorders: Yes Comment:: Sarcoidosis - CARDIOVASCULAR Hx Cardio Disorders: Yes Hx Heart Attack: Yes Hx Hypotension: Yes Comment:: high chjolesterol - NEURO Hx Neuro Disorders: Yes Hx CVA: Yes () - GI Hx GI Disorders: Yes Hx Irritable Bowel: Yes - Hx Genitourinary Disorders: No Comment:: blood clot L kidney - ENDOCRINE Hx Endocrine Disorders: Yes Hx Diabetes: Yes - MUSCULOSKELETAL Hx Musculoskeletal Disorders: No - PSYCH Hx Psych Problems: No - HEMATOLOGY/ONCOLOGY Hx Hematology/Oncology Disorders: No Family Medical History Any Significant Family History?: Yes Hx Cancer: Mother, Brother/Sister Hx Diabetes: Mother, Brother/Sister Hx Heart Disease: Father Hx Kidney Disease: Brother/Sister Physical Exam - General General Appearance: Alert, Oriented x3, Cooperative, No acute distress Limitations: No limitations - Head Head exam: Atraumatic, Normal inspection - Eye Eye exam: Normal appearance, PERRL. negative: Conjunctival injection, Scleral icterus - ENT ENT exam: Normal exam, Mucous membranes moist Ear exam: Normal external inspection Nasal Exam: Normal inspection Mouth exam: Normal external inspection Teeth exam: Normal inspection Throat exam: Normal inspection - Neck Neck exam: Normal inspection - Respiratory Respiratory exam: Normal lung sounds bilaterally. negative: Accessory muscle use, Decreased breath sounds, Prolonged expiratory, Respiratory distress, Rhonchi, Stridor, Wheezes - Cardiovascular Cardiovascular Exam: Regular rate, Normal rhythm, Normal heart sounds - GI/Abdominal GI/Abdominal exam: Soft. negative: Distended, Guarding, Rebound, Rigid, Tenderness - Rectal Rectal exam: Deferred - exam: Deferred - Extremities Extremities exam: Normal inspection. negative: Pedal edema, Tenderness - Back Back exam: Reports: Full ROM. Denies: CVA tenderness (R), CVA tenderness (L), Tenderness - Neurological Neurological exam: Alert, Oriented X3 - Psychiatric Psychiatric exam: Normal affect, Normal mood - Skin Skin exam: Dry, Intact, Normal color, Warm Course Vital Signs 07/07/19 10:09 Temperature 99.1 F Pulse Rate 93 H Respiratory 18 Rate Blood Pressure 196/98 Pulse Ox 96 - Reevaluation(s) Reevaluation #1: 07/07/19 11:37 The labs were reviewed WBC is 15 The CR is 1.2 improved from prior or 1.5 The INR is 1.2 The patient's pharmacist is in the ED and will adjust the coumadin Lovenox will be given today in the ED The patient is feeling better waiting for completion of the IVF 07/07/19 12:44 The UA is consistent with UTI The urine will be cultured She has been doing well. DC on Keflex and Zofran Her pharmacist (Tung) is aware and will follow up the INR Medical Decision Making - Lab Data Result diagrams: 07/07/19 10:25 07/07/19 10:25 Disposition Disposition: Discharge Clinical Impression: Urinary tract infection Nausea and vomiting Qualifiers: Vomiting type: unspecified Vomiting Intractability: unspecified Qualified Code(s): R11.2 - Nausea with vomiting, unspecified Disposition: Home, Self-Care Condition: (1) Good Instructions: Acute Nausea and Vomiting (ED), Urinary Tract Infection in Women (ED) Additional Instructions: Call your doctor for the next available follow up appointment Review this ER visit and the tests performed with your family doctor Return to the ER for a recheck if worse, any new concerns or questions Take the prescriptions provided as directed Prescriptions: Cephalexin [Keflex] 500 mg PO TID #21 cap Ondansetron [Zofran Odt] 4 mg PO Q8H #15 tab.rapdis Forms: Patient Portal Access Time of Disposition: 12:45 Quality - Quality Measures Quality Measures: N/A - Blood Pressure Screening Does Patient Have Any of the Following: Active Dx of HTN Blood Pressure Classification: Hypertensive Reading Systolic Measurement: 196 Diastolic Measurement: 98 Screening for High Blood Pressure: Patient Exclusion, Hx of HTN [G9744]
[2019-07-07 10:35] LABS: ABSOLUTE NEUTROPHIL COUNT 13.76; HEMATOCRIT 40.1 % (35.0-47.0); HEMOGLOBIN 12.2 gm/dl (11.6-16.0); MEAN CELL VOLUME 79.4 fl (81-97); MEAN CORPUSCULAR HEMOGLOBIN 24.2 pg (27-33); MEAN CORPUSCULAR HGB CONC 30.4 g/dl (32-36); PLATELET COUNT 301 K/uL (130-400); RED BLOOD COUNT 5.05 M/uL (3.80-5.40); RED CELL DISTRIBUTION WIDTH 15.3 % (11.5-14.5); WHITE BLOOD COUNT W/O DIFF 15.7 K/uL (4.2-12.2)
[2019-07-07 10:45] LABS: CREATININE 1.2 mg/dL (0.5-0.9)
[2019-07-07 10:46] LABS: BILIRUBIN,TOTAL 0.4 mg/dL (0.2-1.0); TOTAL PROTEIN 6.9 g/dL (6.6-8.7)
[2019-07-07 10:51] LABS: ALBUMIN 3.4 g/dL (4.0-5.0)
[2019-07-07 11:11] LABS: INR 1.2; PROTHROMBIN TIME (PATIENT) 12.5 SECONDS (9.5-12.1)
[2019-07-07] MEDS ORDERED: ENOXAPARIN 60 MG/0.6 ML SYR SQ STA (11:36)
[2019-07-07 12:05] LABS: URINE APPEARANCE CLEAR; URINE BILIRUBIN NEGATIVE (NEGATIVE); URINE BLOOD MODERATE (NEGATIVE); URINE COLOR YELLOW; URINE KETONE NEGATIVE (NEGATIVE); URINE LEUKOCYTE ESTERASE SMALL (NEGATIVE); URINE NITRITE NEGATIVE (NEGATIVE); URINE UROBILINOGEN 0.2 E.U./dL (0.20 - 1.00)
[2019-07-07 12:15] LABS: URINE PROTEIN 300 mg/dL (NEGATIVE)
[2019-07-07 12:18] LABS: URINE BACTERIA FEW; URINE EPITHELIAL CELLS 0 - 2 (FEW); URINE WBC 16 - 20 (0-2/hpf)
[2019-07-07] MEDS ORDERED: CEPHALEXIN 500 MG CAPSULE PO STA (12:44)
[2019-07-07 15:09] LABS: PLATELET ESTIMATE NORMAL (NORMAL)
[2019-07-07 15:10] LABS: ANISOCYTOSIS 1+; HYPOCHROMIA 1+; MICROCYTOSIS 1+
== END 2019-07-07 13:10 | disposition home or self-care (01) ==
LOC: ER 10:07
DX: N39.0 Urinary tract infection, site not specified (principal); R11.2 Nausea with vomiting, unspecified; I95.9 Hypotension, unspecified; E11.9 Type 2 diabetes mellitus without complications; I25.2 Old myocardial infarction; Z86.73 Personal history of transient ischemic attack (TIA), and cerebral infarction without residual deficits; Z79.01 Long term (current) use of anticoagulants; Z79.4 Long term (current) use of insulin
CPT/HCPCS: 80053; 81001; 83690; 85027; 85610; 96361; 96372; 96374; 99284; J1650; J2405; J7030

== ENCOUNTER 2019-07-08 19:33 | Emergency (ER) | payer BC ==
[2019-07-08] MEDS ORDERED: ONDANSETRON HCL IV 4 MG/2 ML VIAL IVP ONE (19:55)
[2019-07-08] MEDS ORDERED: 0.9 % SODIUM CHLORIDE 1000ML 1,000 ML IV SCH (20:00)
--- NOTE | 2019-07-08 20:00 | Emergency Department Record ---
History of Present Illness - General Chief Complaint: Recheck - Other Stated Complaint: NAUSEA,VOMITING,CHILLS,TIRED Time Seen by Provider: 07/08/19 19:35 Source: Patient Mode of arrival: Wheelchair Limitations: No limitations - History of Present Illness Initial Comments: 63 yo female presents to ED for re-evaluation of vomiting symptoms following examination yesterday in [facility] ED. Patient was found to have a urinary tract infection yesterday, following treatment with IVFs and Zofran, patient's symptoms were improved. Patient denies fevers/chills in the past 24 hours, does report the development of abdominal pain following examination yesterday. Patient vomited x 1 today, did take Zofran 7 hours ago. Majority of the patient's history was obtained from her SO. MD Complaint: Other Onset/Timin -: Days(s) Initial Visit For: Other Returns Today for: Other Symptoms Since Prior Visit: No new symptoms Associated Symptoms: Malaise, Nausea, Other Treatments Prior to Arrival: Given antibiotics on initial visit, Other medications - Related Data Previous Rx's Medication Instructions Recorded Cephalexin [Keflex] 500 mg PO TID #21 cap 07/07/19 Ondansetron [Zofran Odt] 4 mg PO Q8H #15 tab.rapdis 07/07/19 Allergies Allergy/AdvReac Type Severity Reaction Status Date / Time pioglitazone [From Actos] Allergy hypotension Verified 07/07/19 10:12 hx-told not to take it Travel Screening - Travel/Exposure Within Last 30 Days Have you traveled within the last 30 days?: No - Travel Symptoms Symptom Screening: Vomiting Review of Systems Constitutional: Denies: Chills, Fever, Malaise, Night sweats Eyes: Denies: Eye discharge, Eye pain ENT: Denies: Congestion, Ear pain, Epistaxis Respiratory: Denies: Cough, Dyspnea Cardiovascular: Denies: Chest pain, Dyspnea on exertion Endocrine: Denies: Fatigue, Heat or cold intolerance Gastrointestinal: Reports: Abdominal pain, Nausea, Vomiting Genitourinary: Denies: Incontinence, Retention Musculoskeletal: Denies: Arthralgia, Back pain Skin: Denies: Bruising, Change in color Neurological: Denies: Abnormal gait, Confusion, Headache, Seizure Psychiatric: Denies: Anxiety Hematological/Lymphatic: Denies: Anemia, Blood Clots Past Medical History - SOCIAL HISTORY Smoking Status: Never smoker Alcohol Use: None Drug Use: None - RESPIRATORY Hx Respiratory Disorders: Yes Comment:: Sarcoidosis - CARDIOVASCULAR Hx Cardio Disorders: Yes Hx Heart Attack: Yes Hx Hypotension: Yes Comment:: high chjolesterol - NEURO Hx Neuro Disorders: Yes Hx CVA: Yes () - GI Hx GI Disorders: Yes Hx Irritable Bowel: Yes - Hx Genitourinary Disorders: No Comment:: blood clot L kidney - ENDOCRINE Hx Endocrine Disorders: Yes Hx Diabetes: Yes - MUSCULOSKELETAL Hx Musculoskeletal Disorders: No - PSYCH Hx Psych Problems: No - HEMATOLOGY/ONCOLOGY Hx Hematology/Oncology Disorders: No Family Medical History Any Significant Family History?: Yes Hx Cancer: Mother, Brother/Sister Hx Diabetes: Mother, Brother/Sister Hx Heart Disease: Father Hx Kidney Disease: Brother/Sister Physical Exam - General General Appearance: Alert, Oriented x3, Cooperative, Other (Flat affect on examination, answers very few questions.) Limitations: No limitations - Head Head exam: Atraumatic, Normocephalic, Normal inspection Head exam detail: negative: Abrasion, Contusion, Husain's sign, General tenderness, Hematoma, Laceration - Eye Eye exam: Normal appearance. negative: Conjunctival injection, Periorbital swelling, Periorbital tenderness, Scleral icterus - ENT Ear exam: negative: Auricular hematoma, Auricular trauma Nasal Exam: negative: Active bleeding, Discharge, Dried blood, Foreign body Mouth exam: negative: Drooling, Laceration, Muffled voice, Tongue elevation - Neck Neck exam: Normal inspection. negative: Meningismus, Tenderness - Respiratory Respiratory exam: Normal lung sounds bilaterally. negative: Rales, Respiratory distress, Rhonchi, Stridor - Cardiovascular Cardiovascular Exam: Regular rate, Normal rhythm, Normal heart sounds - GI/Abdominal GI/Abdominal exam: Soft. negative: Rebound, Rigid, Tenderness - Rectal Rectal exam: Deferred - exam: Deferred - Extremities Extremities exam: Normal inspection. negative: Pedal edema, Tenderness - Back Back exam: Denies: CVA tenderness (R), CVA tenderness (L) - Neurological Neurological exam: Alert, Normal gait, Oriented X3 - Psychiatric Psychiatric exam: Normal affect, Normal mood - Skin Skin exam: Normal color. negative: Abrasion Type of lesion: negative: abrasion Course Vital Signs 07/08/19 19:42 Temperature 98.2 F Pulse Rate [ 96 H Pulse Ox Probe] Respiratory 20 Rate Blood Pressure 184/121 [Right Arm] Pulse Ox 95 - Reevaluation(s) Reevaluation #1: 07/08/19 20:51 Laboratory studies were reviewed and appears grossly unremarkable for an acute process except for the following: WBC 15.5 GFR 53 (at baseline) Glucose 312. Reevaluation #2: 07/08/19 22:07 UA reviewed and appears negative for an acute process. CT Abdomen and Pelvis: No acute process Left kidney scarring No obstruction Gallstone, Fibroid present. Patient tolerating PO without recurrent vomiting. Discussed observation for recurrent vomiting symptoms, patient declined. Patient is requesting to go home at this time and appears stable for discharge. Patient was counseled to complete her antibiotics as prescribed. Medical Decision Making - Lab Data Result diagrams: 07/08/19 20:07 07/08/19 20:07 Disposition Disposition: Discharge Clinical Impression: Nausea & vomiting Qualifiers: Vomiting type: unspecified Vomiting Intractability: non-intractable Qualified Code(s): R11.2 - Nausea with vomiting, unspecified Disposition: Home, Self-Care Condition: (2) Stable Instructions: Acute Nausea and Vomiting (ED) Additional Instructions: Return to ED if your symptoms worsen or if you have any concerns. Continue Zofran and Keflex as previously prescribed. Follow-up with your family doctor in 1-3 days as directed. Forms: Patient Portal Access Time of Disposition: 22:13 Quality - Quality Measures Quality Measures: N/A - Blood Pressure Screening Does Patient Have Any of the Following: Active Dx of HTN Blood Pressure Classification: Hypertensive Reading Systolic Measurement: 172 Diastolic Measurement: 101 Screening for High Blood Pressure: Patient Exclusion, Hx of HTN [G9744]
[2019-07-08 20:20] LABS: ABSOLUTE NEUTROPHIL COUNT 13.63; BASO % 0.3 % (0-6); HEMATOCRIT 41.1 % (35.0-47.0); HEMOGLOBIN 12.8 gm/dl (11.6-16.0); LYMPH % 7.5 % (16-45); MEAN CORPUSCULAR HGB CONC 31.1 g/dl (32-36); MEAN PLATELET VOLUME 10.9 fl (7.4-10.4); MONO % 4.1 % (0-9); PLATELET COUNT 327 K/uL (130-400); RED BLOOD COUNT 5.34 M/uL (3.80-5.40); RED CELL DISTRIBUTION WIDTH 14.8 % (11.5-14.5); WHITE BLOOD COUNT W/O DIFF 15.5 K/uL (4.2-12.2)
[2019-07-08 20:29] LABS: BILIRUBIN,TOTAL 0.3 mg/dL (0.2-1.0); CREATININE 1.1 mg/dL (0.5-0.9); TOTAL PROTEIN 6.8 g/dL (6.6-8.7)
[2019-07-08 20:34] LABS: ALB/GLOB RATIO 0.8 (1.1-1.8); ALBUMIN 3.1 g/dL (4.0-5.0)
[2019-07-08 20:57] LABS: ANISOCYTOSIS 1+; PLATELET ESTIMATE NORMAL (NORMAL)
[2019-07-08 21:29] LABS: URINE APPEARANCE CLEAR; URINE BILIRUBIN NEGATIVE (NEGATIVE); URINE BLOOD MODERATE (NEGATIVE); URINE COLOR YELLOW; URINE KETONE TRACE (NEGATIVE); URINE LEUKOCYTE ESTERASE NEGATIVE (NEGATIVE); URINE NITRITE NEGATIVE (NEGATIVE); URINE UROBILINOGEN 0.2 E.U./dL (0.20 - 1.00)
[2019-07-08 21:39] LABS: URINE GLUCOSE (UA) >=1000 mg/dL (NEGATIVE); URINE PROTEIN 300 mg/dL (NEGATIVE)
[2019-07-08 21:40] LABS: URINE EPITHELIAL CELLS 0 - 2 (FEW); URINE RBC 0 - 2 (NONE SEEN); URINE WBC 0 - 2 (0-2/hpf)
--- NOTE | 2019-07-09 22:13 | CT SCAN REPORT ---
EXAM: CT SCAN ABDOMEN/PELVIS W CONTRAST HISTORY: ABDOMINAL PAIN. TECHNIQUE: CT abdomen and pelvis performed following intravenous contrast administration. Type and amount of contrast are recorded in the medical record. COMPARISON: CT abdomen and pelvis 06/15/2019. FINDINGS: Lung bases are unremarkable. The liver and spleen are unremarkable. No pancreatic mass or inflammatory change. No dilated bile ducts. There is a calcified gallstones identified within the gallbladder. Gallbladder otherwise unremarkable. No adrenal lesion seen. There is bilateral renal function. There is chronic scarring and atrophy of the upper pole of the left kidney. There are patulous renal collecting systems and ureters bilaterally. These findings are similar to the patient's previous study. No ureteral calculus or evidence for acute obstructive process identified. There is no aortic aneurysm. No periaortic mass or adenopathy. There is gas identified in the non-dependent urinary bladder, which may be iatrogenic in nature. Urinary bladder otherwise unremarkable. There are no dilated bowel loops. The appendix is unremarkable. There is likely a duodenal diverticulum. Vascular calcifications are present throughout the uterus. There may be a uterine fibroid posteriorly. No pelvic mass seen. No lytic or blastic bone lesion. IMPRESSION: 1. NO ACUTE ABDOMINAL OR PELVIC PROCESS IDENTIFIED. 2. MARKED ATROPHY OF THE UPPER POLE OF THE LEFT KIDNEY WITH ASSOCIATED CALCIFICATIONS, SIMILAR TO THE PREVIOUS STUDY. 3. MILD CHRONIC ASYMMETRIC RIGHT PERINEPHRIC FAT STRANDING, SIMILAR TO THE PREVIOUS STUDY. 4. PATULOUS RENAL COLLECTING SYSTEMS BILATERALLY, SIMILAR TO THE PREVIOUS STUDY WITHOUT OBSTRUCTIVE PROCESS. 5. SMALL AMOUNT OF AIR IN THE URINARY BLADDER, WHICH MAY BE IATROGENIC. 6. SMALL UTERINE FIBROID. 7. CHOLELITHIASIS WITHOUT EVIDENCE FOR ACUTE CHOLECYSTITIS. 8. PLEASE SEE ABOVE FOR FULL DISCUSSION. [facility]BER: [id number] [facility]
== END 2019-07-08 22:20 | disposition home or self-care (01) ==
LOC: ER 19:33
DX: R11.2 Nausea with vomiting, unspecified (principal); R53.81 Other malaise; I25.2 Old myocardial infarction
CPT/HCPCS: 74177; 80053; 81001; 83690; 85027; 96374; 99284; J2405

== ENCOUNTER 2019-08-20 21:28 | Emergency (ER) | payer BC ==
--- NOTE | 2019-08-20 21:42 | Emergency Department Record ---
History of Present Illness - General Chief Complaint: Fall Injury Stated Complaint: FALL HIT HEAD Time Seen by Provider: 08/20/19 21:35 Source: Patient Mode of Arrival: Ambulatory Limitations: No limitations - History of Present Illness Initial Comments: 64 yo female presents to ED following a trip and fall involving a bowl of chili that struck her in the head. Patient denies LOC, denies neck pain or injury on examination. Patient reports that she takes warfarin for a previous "blood clot in the kidney", patient has her INR checked yesterday her at [facility], INR 2.1. Patient denies symptoms other than soreness to the left eyebrow on examination at this time. MD Complaint: Fall Onset/Timin -: Minutes(s) Fall From: Standing When Fall Occurred: Just prior to arrival Fall Witnessed: Yes, by family Place Fall Occurred: Home Loss of Consciousness: None Prolonged Down Time?: No Symptoms Prior to Fall: None Location: Face Severity: Mild Context: Tripped/slipped Associated Symptoms: Denies - Arcadio Coma Scale Eye Response: (4) Open spontaneously Motor Response: (6) Obeys commands Verbal Response: (5) Oriented Arcadio Total: 15 - Related Data Previous Rx's Medication Instructions Recorded Ondansetron [Zofran Odt] 4 mg PO Q8H #15 tab.rapdis 07/07/19 Allergies Allergy/AdvReac Type Severity Reaction Status Date / Time pioglitazone [From Actos] Allergy hypotension Unverified 08/19/19 07:57 hx-told not to take it Review of Systems Constitutional: Denies: Chills, Fever, Malaise, Night sweats Eyes: Denies: Eye discharge, Eye pain ENT: Denies: Congestion, Ear pain, Epistaxis Respiratory: Denies: Cough, Dyspnea Cardiovascular: Denies: Chest pain, Dyspnea on exertion Endocrine: Denies: Fatigue, Heat or cold intolerance Gastrointestinal: Denies: Abdominal pain, Nausea, Vomiting Genitourinary: Denies: Incontinence, Retention Musculoskeletal: Denies: Arthralgia, Back pain Skin: Reports: Bruising (Over the left eyebrow). Denies: Change in color, Change in hair/nails Neurological: Denies: Abnormal gait, Confusion, Headache, Tingling, Tremors Psychiatric: Denies: Anxiety Hematological/Lymphatic: Reports: Blood Clots, Easy bleeding, Easy bruising. Denies: Anemia Past Medical History - SOCIAL HISTORY Smoking Status: Never smoker Alcohol Use: None Drug Use: None - RESPIRATORY Hx Respiratory Disorders: Yes Comment:: Sarcoidosis - CARDIOVASCULAR Hx Cardio Disorders: Yes Hx Heart Attack: Yes Hx Hypotension: Yes Comment:: high chjolesterol - NEURO Hx Neuro Disorders: Yes Hx CVA: Yes () - GI Hx GI Disorders: Yes Hx Irritable Bowel: Yes - Hx Genitourinary Disorders: No Comment:: blood clot L kidney - ENDOCRINE Hx Endocrine Disorders: Yes Hx Diabetes: Yes - MUSCULOSKELETAL Hx Musculoskeletal Disorders: No - PSYCH Hx Psych Problems: No - HEMATOLOGY/ONCOLOGY Hx Hematology/Oncology Disorders: No Family Medical History Any Significant Family History?: Yes Hx Cancer: Mother, Brother/Sister Hx Diabetes: Mother, Brother/Sister Hx Heart Disease: Father Hx Kidney Disease: Brother/Sister Physical Exam - General General Appearance: Alert, Oriented x3, Cooperative, Mild distress Limitations: No limitations - Head Head exam detail: Contusion (Mild STS over the left eyebros c/w contusion). negative: Abrasion, Husain's sign, General tenderness, Laceration - Eye Eye exam: negative: Conjunctival injection, Scleral icterus - ENT Ear exam: negative: Auricular hematoma, Auricular trauma Nasal Exam: negative: Active bleeding, Discharge, Dried blood, Foreign body Mouth exam: negative: Drooling, Laceration, Muffled voice, Tongue elevation - Neck Neck exam: Normal inspection. negative: Meningismus, Tenderness - Respiratory Respiratory exam: Normal lung sounds bilaterally. negative: Respiratory distress, Rhonchi, Stridor, Wheezes - Cardiovascular Cardiovascular Exam: Regular rate, Normal rhythm, Normal heart sounds - GI/Abdominal GI/Abdominal exam: Soft. negative: Rebound, Rigid, Tenderness - Rectal Rectal exam: Deferred - exam: Deferred - Extremities Extremities exam: Normal inspection. negative: Pedal edema, Tenderness - Back Back exam: Denies: CVA tenderness (R), CVA tenderness (L) - Neurological Neurological exam: Alert, Normal gait, Oriented X3 - Psychiatric Psychiatric exam: Normal affect, Normal mood - Skin Skin exam: Normal color. negative: Abrasion Type of lesion: negative: abrasion Course Vital Signs 08/20/19 21:32 Temperature 98.3 F Pulse Rate [ 85 Left] Respiratory 16 Rate Blood Pressure 186/98 [Left] Pulse Ox 97 - Reevaluation(s) Reevaluation #1: 08/20/19 22:07 CT Brain: Stable from previous No acute intracranial hemorrhage identified Patient was updated on all results INR from 08/19 was reviewed (2.1). Patient appears stable for discharge at this time and appears low-risk overall for delayed bleeding. Patient was given indications to return to ED for re-evaluation following head injury as well. Patient appears stable for discharge at this time. Disposition Disposition: Discharge Clinical Impression: Anticoagulated on Coumadin Contusion of head Qualifiers: Encounter type: initial encounter Contusion of head detail: periocular area Laterality: left Qualified Code(s): S00.12XA - Contusion of left eyelid and periocular area, initial encounter Condition: (2) Stable Instructions: Fall Prevention for Older Adults (ED) Additional Instructions: Return to ED if your symptoms worsen or if you have any concerns. Follow-up with your family doctor in 3-5 days as directed. Forms: Patient Portal Access Time of Disposition: 22:07 Quality - Quality Measures Quality Measures: N/A, Blunt Head Trauma (>2yr) - Price Coma Scale Arcadio Coma Scale: Price Coma Scale Eye Response: (4) Open spontaneously Motor Response: (6) Obeys commands Verbal Response: (5) Oriented Arcadio Total: 15 - Blunt Head Trauma - Adult Quality Measure: Measure #415: Utilization of CT for Minor Blunt Head Trauma ICD10 Codes Entered: Yes Was CT ordered: Yes Does Patient Have Any of the Following: No Exclusions Patient Presented Within 24 Hours of Injury: Yes Arcadio Score: [address] for Minor Blunt Head Trauma: < CT Done, Appropriate Indication > [G9529] Additional Inclusion Criteria: Within 24hrs (AND) GCS of 15 (AND) CT ordered. [G9530] Indications For CT: Coagulopathy - Blood Pressure Screening Does Patient Have Any of the Following: Active Dx of HTN Blood Pressure Classification: Hypertensive Reading Systolic Measurement: 186 Diastolic Measurement: 98 Screening for High Blood Pressure: Patient Exclusion, Hx of HTN [G9744]
--- NOTE | 2019-08-22 20:36 | CT SCAN REPORT ---
EXAM: CT SCAN HEAD WO CONTRAST HISTORY: PATIENT HAS INJURY TECHNIQUE: Serial axial CT scan of the head was performed at 2.5 mm intervals from the base of the skull to the apex without the use of intravenous contrast. Sagittal and coronal reconstructions are provided. Comparison CT scan of the head dated 06/18/2019 is provided. FINDINGS: Moderate generalized parenchymal volume loss is noted. There is no mass or mass effect. Chronic infarcts involving the left frontal lobe are unchanged with respect to the prior examination. There is no CT evidence of intra or extraaxial fluid collection to suggest bleeding. Bone windows demonstrate no CT evidence of a fracture or dislocation of the skull. Paranasal sinuses are unremarkable. IMPRESSION: STABLE CT APPEARANCE OF THE BRAIN WITH RESPECT TO THE PRIOR EXAMINATION. JOB NUMBER: [id number] [facility]
== END 2019-08-20 22:21 | disposition home or self-care (01) ==
LOC: ER 21:28
DX: S00.12XA Contusion of left eyelid and periocular area, initial encounter (principal); W01.198A Fall on same level from slipping, tripping and stumbling with subsequent striking against other object, initial encounter; Y93.89 Activity, other specified; Y92.019 Unspecified place in single-family (private) house as the place of occurrence of the external cause; I10 Essential (primary) hypertension; E78.00 Pure hypercholesterolemia, unspecified; Z95.1 Presence of aortocoronary bypass graft; Z79.01 Long term (current) use of anticoagulants; D86.9 Sarcoidosis, unspecified
CPT/HCPCS: 70450; 99284

== ENCOUNTER 2019-10-27 22:36 | Emergency (ER) | payer BC ==
[2019-10-27] MEDS ORDERED: 0.9 % SODIUM CHLORIDE 1000ML 500 ML IV SCH (22:45)
--- NOTE | 2019-10-27 22:46 | Emergency Department Record ---
History of Present Illness - General Chief Complaint: Numbness Stated Complaint: NUMBNESS ON RT SIDE Time Seen by Provider: 10/27/19 22:38 Source: Patient Mode of Arrival: Wheelchair Limitations: No limitations - History of Present Illness Initial Comments: 64 yo female presents to ED for evaluation of "possible stroke". Patient reports "numbness to the left side of the body" that began approximately 10.5 hours ago. Patient reports history of previous CVA, denies focal weakness, change in speech, or blurred vision. Patient denies fevers, chills, or recent illness. Patient does not take anticoagulation medications at her baseline. Onset/Timin -: Hour(s) Location: Other History of same: Yes Place: Home Severity: Moderate Quality: Constant Improves With: None Worsens With: None On Anticoagulants: No Associated Symptoms: Denies other symptoms - Arcadio Coma Scale Eye Response: (4) Open spontaneously Motor Response: (6) Obeys commands Verbal Response: (5) Oriented [place] Total: 15 - Related Data Home Medications: Home Medications Medication Instructions Recorded Confirmed Last Taken Losartan Potassium 1 tab PO DAILY 10/27/19 10/27/19 Unknown Previous Rx's Medication Instructions Recorded Ondansetron [Zofran Odt] 4 mg PO Q8H #15 tab.rapdis 07/07/19 Allergies/Adverse Reactions: Allergies Allergy/AdvReac Type Severity Reaction Status Date / Time pioglitazone [From Actos] Allergy hypotension Unverified 08/19/19 07:57 hx-told not to take it Review of Systems Constitutional: Denies: Chills, Fever, Malaise, Night sweats Eyes: Denies: Eye discharge, Eye pain ENT: Denies: Congestion Respiratory: Denies: Cough, Dyspnea Cardiovascular: Denies: Chest pain, Dyspnea on exertion Endocrine: Denies: Fatigue, Heat or cold intolerance Gastrointestinal: Denies: Abdominal pain, Nausea, Vomiting Genitourinary: Denies: Incontinence, Retention Musculoskeletal: Denies: Arthralgia, Back pain Skin: Denies: Bruising, Change in color Neurological: Reports: Numbness. Denies: Abnormal gait, Confusion, Headache, Seizure Psychiatric: Denies: Anxiety Hematological/Lymphatic: Denies: Anemia, Blood Clots Past Medical History - SOCIAL HISTORY Smoking Status: Never smoker - RESPIRATORY Hx Respiratory Disorders: Yes Comment:: Sarcoidosis - CARDIOVASCULAR Comment:: high chjolesterol - NEURO Hx Neuro Disorders: Yes Hx CVA: Yes () - GI Hx GI Disorders: Yes Hx Irritable Bowel: Yes - Hx Genitourinary Disorders: No - ENDOCRINE Hx Endocrine Disorders: Yes Hx Diabetes: Yes - MUSCULOSKELETAL Hx Musculoskeletal Disorders: No - PSYCH Hx Psych Problems: No - HEMATOLOGY/ONCOLOGY Hx Hematology/Oncology Disorders: No Family Medical History Hx Cancer: Mother, Brother/Sister Hx Diabetes: Mother, Brother/Sister Hx Heart Disease: Father Hx Kidney Disease: Brother/Sister Physical Exam - General General Appearance: Alert, Oriented x3, Cooperative, No acute distress, Other (Patient is slwo to answer questions on examination, no focal neurological deficit is present on examination.) Limitations: No limitations - Head Head exam: Atraumatic, Normocephalic, Normal inspection Head exam detail: negative: Abrasion, Contusion, Husain's sign, General tenderness, Hematoma, Laceration - Eye Eye exam: Normal appearance, EOMI. negative: Conjunctival injection, Periorbital swelling, Periorbital tenderness, Scleral icterus - ENT Ear exam: negative: Auricular hematoma, Auricular trauma Nasal Exam: negative: Active bleeding, Discharge, Dried blood, Foreign body Mouth exam: negative: Drooling, Laceration, Muffled voice, Tongue elevation - Neck Neck exam: Normal inspection. negative: Meningismus, Tenderness - Respiratory Respiratory exam: Normal lung sounds bilaterally. negative: Rales, Respiratory distress, Rhonchi, Stridor - Cardiovascular Cardiovascular Exam: Regular rate, Normal rhythm, Normal heart sounds - GI/Abdominal GI/Abdominal exam: Soft. negative: Rebound, Rigid, Tenderness - Rectal Rectal exam: Deferred - exam: Deferred - Extremities Extremities exam: Normal inspection. negative: Pedal edema, Tenderness - Back Back exam: Denies: CVA tenderness (R), CVA tenderness (L) - Neurological Neurological exam: Alert, CN II-XII intact, Oriented X3 - Psychiatric Psychiatric exam: Flat affect - Skin Skin exam: Normal color. negative: Abrasion Type of lesion: negative: abrasion Course - Reevaluation(s) Reevaluation #1: 10/27/19 22:48 Patient was seen and examined. NIH stroke scale is 0 currently. EKG: NSR 87 Normal axis, normal intervals Q waves III, AVF, ST-T wave changes II, III, AVF, and V6 Reevaluation #2: 10/27/19 23:07 Laboratory studies were reviewed and appear grossly unremarkable for an acute process except for the following: Hgb 10.9 (previous 10.3) BUN 44 (at baseline) Patient is back from CT imaging, CT was reviewed and appears grossly unremar kable for an acute process. There is evidence for a previous left sided parietal CVA. [facility] call contacted for stroke transfer. Reevaluation #3: 10/27/19 23:20 Case was discussed with Dr. Hanson (Stroke Neurologist), will accept patient for further neurological evaluation. Medical Decision Making - Lab Data Result diagrams: 10/27/19 22:42 10/27/19 22:42 Disposition Disposition: Transfer Clinical Impression: Paresthesia and pain of left extremity, Cerebral arteriosclerosis with history of previous cerebrovascular accident Disposition: Acute Care Hospital Transfer Transfer To: [facility] Reason For Transfer: Stroke evaluation Accepting Physician: Valentin Time Discussed w/Accepting Physician: 23:16 Condition: (2) Stable Forms: Patient Portal Access Time of Disposition: 23:16 Quality - Quality Measures Quality Measures: N/A - Blood Pressure Screening Does Patient Have Any of the Following: Active Dx of HTN Blood Pressure Classification: Hypertensive Reading Systolic Measurement: 180 Diastolic Measurement: 100 Screening for High Blood Pressure: Patient Exclusion, Hx of HTN [G9744]
[2019-10-27 22:52] LABS: ABSOLUTE NEUTROPHIL COUNT 6.83; BASO % 0.6 % (0-6); EOS % 2.2 % (0-6); GRAN % 72.6 % (47-80); HEMATOCRIT 37.2 % (35.0-47.0); HEMOGLOBIN 10.9 gm/dl (11.6-16.0); LYMPH % 18.2 % (16-45); MEAN CORPUSCULAR HEMOGLOBIN 23.4 pg (27-33); MEAN CORPUSCULAR HGB CONC 29.3 g/dl (32-36); MONO % 6.4 % (0-9); PLATELET COUNT 306 K/uL (130-400); RED BLOOD COUNT 4.65 M/uL (3.80-5.40); RED CELL DISTRIBUTION WIDTH 15.2 % (11.5-14.5); WHITE BLOOD COUNT W/O DIFF 9.4 K/uL (4.2-12.2)
[2019-10-27 23:02] LABS: PROTHROMBIN TIME (PATIENT) 10.7 SECONDS (9.5-12.1)
[2019-10-27 23:04] LABS: BILIRUBIN,TOTAL < 0.20 mg/dL (0.2-1.0); BLOOD UREA NITROGEN 23 mg/dL (8-23); CREATININE 1.3 mg/dL (0.5-0.9); EST GLOMERULAR FILTRATION RATE 44 mL/min
[2019-10-27 23:05] LABS: TOTAL PROTEIN 6.5 g/dL (6.6-8.7)
[2019-10-27 23:07] LABS: GLUCOSE,RANDOM 55 mg/dL (74-109)
[2019-10-27 23:09] LABS: ALT/SGPT 13 U/L (<33)
[2019-10-27 23:10] LABS: ALBUMIN 3.3 g/dL (4.0-5.0); ALKALINE PHOSPHATASE 182 U/L (35-104); AST/SGOT 14 U/L (10.0-35.0)
--- NOTE | 2019-10-27 23:28 | CT SCAN REPORT ---
EXAMINATION: HEAD WO CONTRAST EXAM DATE: 10/27/2019 11:14 PM TECHNIQUE: Noncontrast axial images were obtained to the brain. Coronal and sagittal reformatted brandyn ges were generated. INDICATION: possible CVA. Left-sided paresthesias. COMPARISON: 08/20/2019 ENCOUNTER: Not applicable HAND DOMINANCE: Unknown. FINDINGS: The ventricular system is normal in size and morphology. The basal cisterns are patent and there is n o midline shift or herniation. Encephalomalacia in the deep left frontal white matter, unchanged and likely related to prior infarct ion. No loss of awan-white matter differentiation or sulcal effacement to indicate acute infarction. No evidence of intracranial mass. No intra-axial or extra-axial fluid collection. The paranasal sinuses and mastoid air cells are unremarkable. The orbital structures are unremarkabl e. The calvarium is intact. IMPRESSION: 1. No evidence of acute intracranial hemorrhage or infarction. 2. Chronic ischemic changes in the left frontal region. A Red Critical Result was communicated to Dr Perez at 10/27/2019 11:27 PM. Dictated by: Jerry Celis MD on 10/27/2019 11:21 PM. .
== END 2019-10-28 00:54 | disposition short-term general hospital (02) ==
LOC: ER 22:36
DX: I67.2 Cerebral atherosclerosis (principal); R47.81 Slurred speech; R20.0 Anesthesia of skin; E11.9 Type 2 diabetes mellitus without complications; I10 Essential (primary) hypertension
CPT/HCPCS: 70450; 80053; 85025; 85610; 93005; 93010; 99285

== ENCOUNTER 2019-10-30 19:04 | Inpatient (IN) | payer BC ==
[2019-10-30 19:48] LABS: ABSOLUTE NEUTROPHIL COUNT 9.49; BASO % 0.5 % (0-6); EOS % 2.6 % (0-6); GRAN % 81.6 % (47-80); HEMATOCRIT 34.9 % (35.0-47.0); HEMOGLOBIN 10.1 gm/dl (11.6-16.0); LYMPH % 9.3 % (16-45); MEAN CELL VOLUME 79.9 fl (81-97); MEAN CORPUSCULAR HEMOGLOBIN 23.1 pg (27-33); MEAN CORPUSCULAR HGB CONC 28.9 g/dl (32-36); MEAN PLATELET VOLUME 11.7 fl (7.4-10.4); PLATELET COUNT 270 K/uL (130-400); RED BLOOD COUNT 4.37 M/uL (3.80-5.40); WHITE BLOOD COUNT W/O DIFF 11.6 K/uL (4.2-12.2)
[2019-10-30 20:03] LABS: BILIRUBIN,TOTAL 0.2 mg/dL (0.2-1.0); CREATININE 1.7 mg/dL (0.5-0.9); PROTHROMBIN TIME (PATIENT) 10.7 SECONDS (9.5-12.1); TOTAL PROTEIN 6.6 g/dL (6.6-8.7)
[2019-10-30 20:08] LABS: ALB/GLOB RATIO 0.9 (1.1-1.8); ALBUMIN 3.2 g/dL (4.0-5.0)
[2019-10-30 20:51] LABS: URINE APPEARANCE SL CLOUDY; URINE BILIRUBIN NEGATIVE (NEGATIVE); URINE BLOOD SMALL (NEGATIVE); URINE COLOR YELLOW; URINE KETONE NEGATIVE (NEGATIVE); URINE LEUKOCYTE ESTERASE NEGATIVE (NEGATIVE); URINE NITRITE NEGATIVE (NEGATIVE); URINE UROBILINOGEN 0.2 E.U./dL (0.20 - 1.00)
[2019-10-30 21:00] LABS: URINE RBC 0 - 2 (NONE SEEN); URINE WBC 36 - 50 (0-2/hpf)
[2019-10-30 21:01] LABS: URINE BACTERIA 1+; URINE HYALINE CAST 0 - 5 /lpf; URINE MUCUS LIGHT
--- NOTE | 2019-10-30 21:21 | RADIOLOGY REPORT ---
EXAMINATION: Two View Chest Radiographs EXAM DATE: 10/30/2019 9:18 PM TECHNIQUE: Frontal and lateral views INDICATION: fall COMPARISON: None ENCOUNTER: Not applicable FINDINGS: Heart size normal. Postop sternotomy wires. Bilateral lobe infiltrates. IMPRESSION: Bilateral lower lobe infiltrates Dictated by: Laurel Jacobsen DO on 10/30/2019 9:18 PM. .
--- NOTE | 2019-10-30 21:22 | CT SCAN REPORT ---
EXAMINATION: CT Head without IV Contrast EXAM DATE: 10/30/2019 9:18 PM TECHNIQUE: Standard protocol CT images of the head were obtained without intravenous contrast. Ramirez l and sagittal reconstructed images were created. INDICATION: fall COMPARISON: None HAND DOMINANCE: Unknown. ENCOUNTER: Not applicable FINDINGS: 1. There is no intracranial mass, midline shift, extraaxial fluid collection or hemorrhage. 2. The ventricles, sulci and cisterns are normal. 3. Remote area of ischemia in the left cerebral hemisphere. No mass effect or midline shift. No frac ture. 4. The visualized aspects of the orbits, paranasal sinuses, and mastoid air cells are normal. IMPRESSION: Periventricular small vessel in the left cerebral hemisphere. No acute intracranial abnormality by CT examination Dictated by: Laurel Jacobsen DO on 10/30/2019 9:19 PM. .
--- NOTE | 2019-10-30 22:19 | Emergency Department Record ---
History of Present Illness - General Chief Complaint: Shortness of breath Stated Complaint: SHORT OF BREATH Time Seen by Provider: 10/30/19 19:12 Source: Patient Mode of Arrival: Wheelchair Limitations: No limitations - History of Present Illness Initial Comments: pt is c/o falling, hitting her head and becoming sob. she was recently in [place] for r/o stroke and was just d/cd. she has a hx of cabg, sarcoidosis,dm,thrombus and stroke. pt states she is dizzy. her coumadin was recently stopped and pt was started on lovenox. MD Complaint: Shortness of breath Onset/Timin -: Hour(s) Consistency: Constant Worsens With: Exertion, Movement Context: Recent illness Associated Symptoms: Denies other symptoms - Related Data Home Medications Medication Instructions Recorded Confirmed Last Taken Atorvastatin Calcium [Lipitor] 1 tab PO DAILY 10/30/19 10/30/19 10/29/19 Enoxaparin Sodium [Lovenox] 60 mg SC DAILY 10/30/19 10/30/19 10/30/19 Insulin Detemir [Levemir Flextouch] 30 unit SQ BID 10/30/19 10/30/19 10/30/19 Sulfamethoxazole/Trimethoprim 1 tab PO BID 10/30/19 10/30/19 10/30/19 [Bactrim Ds Tablet] Allergies Allergy/AdvReac Type Severity Reaction Status Date / Time pioglitazone [From Actos] Allergy hypotension Verified 10/30/19 19:13 hx-told not to take it Travel Screening - Travel/Exposure Within Last 30 Days Have you traveled within the last 30 days?: No - Travel/Exposure Within Last Year Have you traveled outside the [place] in the last year?: No - Additonal Travel Details Have you been exposed to anyone with a communicable illness?: No - Travel Symptoms Symptom Screening: None Review of Systems Reviewed: No additional complaints except as noted below Constitutional: Reports: As per HPI. Denies: Chills, Fever, Malaise, Night sweats, Weakness, Weight change Eyes: Reports: As per HPI. Denies: Eye discharge, Eye pain, Photophobia, Vision change ENT: Reports: As per HPI. Denies: Congestion, Dental pain, Ear pain, Epistaxis, Hearing loss, Throat pain Respiratory: Reports: As per HPI, Cough, Dyspnea. Denies: Hemoptysis, Stridor, Wheezes Cardiovascular: Reports: As per HPI. Denies: Arrhythmia, Chest pain, Dyspnea on exertion, Edema, Murmurs, Orthopnea, Palpitations, Paroxysmal nocturnal dyspnea, Rheumatic Fever, Syncope Endocrine: Reports: As per HPI. Denies: Fatigue, Heat or cold intolerance, Polydipsia, Polyuria Gastrointestinal: Reports: As per HPI. Denies: Abdominal pain, Constipation, Diarrhea, Hematemesis, Hematochezia, Melena, Nausea, Vomiting Genitourinary: Reports: As per HPI. Denies: Abnormal menses, Discharge, Dyspareunia, Dysuria, Frequency, Hematuria, Incontinence, Retention, Urgency Musculoskeletal: Reports: As per HPI. Denies: Arthralgia, Back pain, Gout, Joint swelling, Myalgia, Neck pain Skin: Reports: As per HPI. Denies: Bruising, Change in color, Change in hair/nails, Lesions, Pruritus, Rash Neurological: Reports: As per HPI. Denies: Abnormal gait, Confusion, Headache, Numbness, Paresthesias, Seizure, Tingling, Tremors, Vertigo, Weakness Psychiatric: Reports: As per HPI. Denies: Anxiety, Auditory hallucinations, Depression, Homicidal thoughts, Suicidal thoughts, Visual hallucinations Hematological/Lymphatic: Reports: As per HPI. Denies: Anemia, Blood Clots, Easy bleeding, Easy bruising, Swollen glands Past Medical History - SOCIAL HISTORY Smoking Status: Never smoker Alcohol Use: None Drug Use: None - RESPIRATORY Hx Respiratory Disorders: Yes Comment:: Sarcoidosis - CARDIOVASCULAR Hx Cardio Disorders: Yes Comment:: high chjolesterol - NEURO Hx Neuro Disorders: Yes Hx CVA: Yes () - GI Hx GI Disorders: Yes Hx Irritable Bowel: Yes - Hx Genitourinary Disorders: No Comment:: blood clot L kidney - ENDOCRINE Hx Endocrine Disorders: Yes Hx Diabetes: Yes - MUSCULOSKELETAL Hx Musculoskeletal Disorders: No - PSYCH Hx Psych Problems: No - HEMATOLOGY/ONCOLOGY Hx Hematology/Oncology Disorders: No Hx Blood Transfusions: Yes Hx Blood Transfusion Reaction: No Family Medical History Any Significant Family History?: No Hx Cancer: Mother, Brother/Sister Hx Diabetes: Mother, Brother/Sister Hx Heart Disease: Father Hx Kidney Disease: Brother/Sister Physical Exam - General General Appearance: Alert, Oriented x3, Cooperative, Mild distress - Head Head exam: Normal inspection - Eye Eye exam: Normal appearance, PERRL, EOMI Pupils: Normal accommodation - ENT ENT exam: Normal exam, Mucous membranes moist, Normal external ear exam, Normal orophraynx Ear exam: Normal external inspection. negative: External canal tenderness Nasal Exam: Normal inspection. negative: Discharge, Sinus tenderness Mouth exam: Normal external inspection, Tongue normal Teeth exam: Normal inspection. negative: Dental caries Throat exam: Normal inspection. negative: Tonsillar erythema, Tonsillar exudate - Neck Neck exam: Normal inspection, Full ROM. negative: Tenderness - Respiratory Respiratory exam: Rales. negative: Respiratory distress - Cardiovascular Cardiovascular Exam: Regular rate, Normal rhythm, Normal heart sounds - GI/Abdominal GI/Abdominal exam: Soft, Normal bowel sounds. negative: Tenderness - Rectal Rectal exam: Deferred - exam: Deferred - Extremities Extremities exam: Normal inspection, Full ROM, Normal capillary refill. negative: Tenderness - Back Back exam: Reports: Normal inspection, Full ROM. Denies: Muscle spasm, Rash noted, Tenderness - Neurological Neurological exam: Alert, CN II-XII intact, Normal gait, Oriented X3 - Psychiatric Psychiatric exam: Normal affect, Normal mood - Skin Skin exam: Dry, Intact, Normal color, Warm Course Vital Signs 10/30/19 10/30/19 10/30/19 19:10 20:10 21:21 Temperature 97.8 F Pulse Rate [ 95 H 86 89 Left] Respiratory 16 Rate Blood Pressure 190/109 178/82 163/84 [Left] Pulse Ox 96 90 L 93 L 10/30/19 21:50 Temperature Pulse Rate [ Left] Respiratory Rate Blood Pressure [Left] Pulse Ox 93 L - Reevaluation(s) Reevaluation #1: 10/30/19 22:21 pt frequently desatted to mid 80s Reevaluation #2: 10/30/19 22:21 cxr shows bilateral lower lobe infiltrates, ct is neg Medical Decision Making - Lab Data Result diagrams: 10/30/19 19:43 10/30/19 19:43 Lab Results 10/30/19 10/30/19 10/30/19 Range/Units 19:43 19:43 19:43 WBC 11.6 (4.2-12.2) K/uL RBC 4.37 (3.80-5.40) M/uL Hgb 10.1 L (11.6-16.0) gm/dl Hct 34.9 L (35.0-47.0) % MCV 79.9 L (81-97) fl MCH 23.1 L (27-33) pg MCHC 28.9 L (32-36) g/dl RDW 15.0 H (11.5-14.5) % Plt Count 270 (130-400) K/uL MPV 11.7 H (7.4-10.4) fl Gran % 81.6 H (47-80) % Lymphocytes % 9.3 L (16-45) % Monocytes % 6.0 (0-9) % Eosinophils % 2.6 (0-6) % Basophils % 0.5 (0-6) % Absolute Neutrophils 9.49 PT 10.7 (9.5-12.1) SECONDS INR 1.0 D-Dimer 0.57 (0-0.59) mg/L FEU Sodium 139 (136-145) mmol/L Potassium 4.2 (3.4-4.5) mmol/L Chloride 103 (98-107) mmol/L Carbon Dioxide 22.0 (22-29) mmol/L Anion Gap 14.0 (7-16) BUN 24 H (8-23) mg/dL Creatinine 1.7 H (0.5-0.9) mg/dL Estimated GFR 32 mL/min Random Glucose 160 H (74-109) mg/dL Calcium 8.4 L (8.8-10.2) mg/dL Total Bilirubin 0.20 (0.2-1.0) mg/dL AST 28 (10.0-35.0) U/L ALT 19 (<33) U/L Alkaline Phosphatase 190 H (35-104) U/L Total Protein 6.6 (6.6-8.7) g/dL Albumin 3.2 L (4.0-5.0) g/dL Globulin 3.4 (1.4-4.8) gm/dL Albumin/Globulin Ratio 0.9 L (1.1-1.8) Urine Color Urine Appearance Urine pH (5.0-8.0) Ur Specific [place] (1.002-1.030) Urine Protein (NEGATIVE) Urine Glucose (UA) (NEGATIVE) Urine Ketones (NEGATIVE) Urine Blood (NEGATIVE) Urine Nitrite (NEGATIVE) Urine Bilirubin (NEGATIVE) Urine Urobilinogen (0.20 - 1.00) E.U./dL Ur Leukocyte Esterase (NEGATIVE) Urine RBC (NONE SEEN) Urine WBC (0-2/hpf) Ur Epithelial Cells (FEW) Urine Bacteria Hyaline Casts /lpf Urine Mucus 10/30/19 Range/Units 20:40 WBC (4.2-12.2) K/uL RBC (3.80-5.40) M/uL Hgb (11.6-16.0) gm/dl Hct (35.0-47.0) % MCV (81-97) fl MCH (27-33) pg MCHC (32-36) g/dl RDW (11.5-14.5) % Plt Count (130-400) K/uL MPV (7.4-10.4) fl Gran % (47-80) % Lymphocytes % (16-45) % Monocytes % (0-9) % Eosinophils % (0-6) % Basophils % (0-6) % Absolute Neutrophils PT (9.5-12.1) SECONDS INR D-Dimer (0-0.59) mg/L FEU Sodium (136-145) mmol/L Potassium (3.4-4.5) mmol/L Chloride (98-107) mmol/L Carbon Dioxide (22-29) mmol/L Anion Gap (7-16) BUN (8-23) mg/dL Creatinine (0.5-0.9) mg/dL Estimated GFR mL/min Random Glucose (74-109) mg/dL Calcium (8.8-10.2) mg/dL Total Bilirubin (0.2-1.0) mg/dL AST (10.0-35.0) U/L ALT (<33) U/L Alkaline Phosphatase (35-104) U/L Total Protein (6.6-8.7) g/dL Albumin (4.0-5.0) g/dL Globulin (1.4-4.8) gm/dL Albumin/Globulin Ratio (1.1-1.8) Urine Color Yellow Urine Appearance Sl cloudy Urine pH 6.0 (5.0-8.0) Ur Specific [place] 1.020 (1.002-1.030) Urine Protein 100 mg/dl H (NEGATIVE) Urine Glucose (UA) 500 mg/dl H (NEGATIVE) Urine Ketones Negative (NEGATIVE) Urine Blood Small H (NEGATIVE) Urine Nitrite Negative (NEGATIVE) Urine Bilirubin Negative (NEGATIVE) Urine Urobilinogen 0.2 (0.20 - 1.00) E.U./dL Ur Leukocyte Esterase Negative (NEGATIVE) Urine RBC 0 - 2 (NONE SEEN) Urine WBC 36 - 50 (0-2/hpf) Ur Epithelial Cells 7 - 10 (FEW) Urine Bacteria 1+ Hyaline Casts 0 - 5 /lpf Urine Mucus Light Disposition Disposition: Admit Clinical Impression: Hypoxia Pneumonia Qualifiers: Pneumonia type: due to unspecified organism Laterality: bilateral Lung location: lower lobe of lung Qualified Code(s): J18.9 - Pneumonia, unspecified organism UTI (urinary tract infection) Qualifiers: Urinary tract infection type: acute cystitis Hematuria presence: without hematuria Qualified Code(s): N30.00 - Acute cystitis without hematuria Disposition: Still a Patient at [facility] Decision to Admit: Admit from ER Decision to Admit Date: 10/30/19 Decision to Admit Time: 22:26 Forms: Patient Portal Access Quality - Quality Measures Quality Measures: Blunt Head Trauma (>2yr) - Blunt Head Trauma - Adult Quality Measure: Measure #415: Utilization of CT for Minor Blunt Head Trauma ICD10 Codes Entered: Yes Was CT ordered: Yes Does Patient Have Any of the Following: Taking Antiplatelet Med [place] Score: Please complete [place] Coma Scale above Utilization of CT for Minor Blunt Head Trauma: Patient Excluded [[id number]] Indications For CT: Taking Anticoagulant Medication - Blood Pressure Screening Does Patient Have Any of the Following: Active Dx of HTN Blood Pressure Classification: Pre-Hypertensive BP Reading Systolic Measurement: 163 Diastolic Measurement: 84 Screening for High Blood Pressure: Patient Exclusion, Hx of HTN [[id number]]
[2019-10-30] MEDS ORDERED: LEVOFLOXACIN 500MG IVPB 500 MG/100 ML BAG IVPB ONE (22:25)
[2019-10-31] MEDS ORDERED: ACETAMINOPHEN 500 MG TABLET PO PRN (00:17)
[2019-10-31] MEDS ORDERED: ALBUTEROL SULFATE (0.083%) 2.5 MG/3 ML NEB INH PRN (00:17)
[2019-10-31] MEDS ORDERED: IPRATROPIUM/ALBUTEROL (0.5MG/3MG) NEB INH PRN (00:17)
[2019-10-31] MEDS ORDERED: LEVOFLOXACIN 500MG IVPB 500 MG/100 ML BAG IVPB SCH ×2 (00:17→21:00)
[2019-10-31] MEDS ORDERED: FLU VAC QS 2019-20 (INPT, 6MO+) 60MCG/0.5ML IM ONE (00:21)
[2019-10-31 08:28] LABS: WHITE BLOOD COUNT W/O DIFF 10.6 K/uL (4.2-12.2)
[2019-10-31 08:29] LABS: BASO % 0.6 % (0-6); EOS % 2.6 % (0-6); GRAN % 74.7 % (47-80); HEMATOCRIT 32.7 % (35.0-47.0); HEMOGLOBIN 9.6 gm/dl (11.6-16.0); LYMPH % 15.2 % (16-45); MEAN CELL VOLUME 79.2 fl (81-97); MEAN CORPUSCULAR HEMOGLOBIN 23.2 pg (27-33); MEAN CORPUSCULAR HGB CONC 29.4 g/dl (32-36); MEAN PLATELET VOLUME 11.8 fl (7.4-10.4); MONO % 6.9 % (0-9); PLATELET COUNT 283 K/uL (130-400); RED BLOOD COUNT 4.13 M/uL (3.80-5.40)
[2019-10-31] MEDS ORDERED: NOVOLOG FLEXPEN (INSULIN ASPART) 100 UNITS/ML SQ SCH (10:00)
--- NOTE | 2019-10-31 10:24 | History & Physical ---
History of Present Illness - Date of Service Date of Service for History & Physical: 11/01/19 - History of Present Illness Admitting Diagnosis: pneumonia w hypoxia, uti History of Present Illness: 64 yr old female presents to [facility] ER for fall, hitting head and feeling dizzy. Was recently in [facility] inpt for CVA r/o, d/c'd and then fell that resulted in i ncreased SOB. Pt was recently changed from coumadin to Lovenox for anticoagulation previous to this visit. PMH CT head neg for acute process CXR reveals samantha lower lobe PNA Labs and vitals are as documented. Pt started on Levaquin 500mg IVPB QD, Solumedrol 60mg QD, neb tx, and supplementary oxygen. Admit for PNA Selected Entries 10/30/19 19:10 Temperature 97.8 F Pulse Rate [ 95 H Left] Respiratory 16 Rate Blood Pressure 190/109 [Left] Blood Pressure 136 Mean [Left] Pulse Ox 96 Oxygen Delivery Room Air Method Laboratory Tests 10/30/19 10/30/19 10/30/19 19:43 19:43 19:43 WBC 11.6 RBC 4.37 Hgb 10.1 L Hct 34.9 L MCV 79.9 L MCH 23.1 L MCHC 28.9 L RDW 15.0 H Plt Count 270 Absolute Neutrophils 9.49 PT 10.7 INR 1.0 D-Dimer 0.57 Sodium 139 Potassium 4.2 Chloride 103 Carbon Dioxide 22.0 Anion Gap 14.0 BUN 24 H Creatinine 1.7 H Estimated GFR 32 Random Glucose 160 H Total Bilirubin 0.20 AST 28 ALT 19 Alkaline Phosphatase 190 H Total Protein 6.6 Albumin 3.2 L Globulin 3.4 Albumin/Globulin Ratio 0.9 L Urine Color Urine Appearance Urine pH Ur Specific [place] Urine Protein Urine Glucose (UA) Urine Ketones Urine Blood Urine Nitrite Urine Bilirubin Urine Urobilinogen Ur Leukocyte Esterase Urine RBC Urine WBC Ur Epithelial Cells Urine Bacteria Hyaline Casts Urine Mucus 10/30/19 20:40 WBC RBC Hgb Hct MCV MCH MCHC RDW Plt Count Absolute Neutrophils PT INR D-Dimer Sodium Potassium Chloride Carbon Dioxide Anion Gap BUN Creatinine Estimated GFR Random Glucose Total Bilirubin AST ALT Alkaline Phosphatase Total Protein Albumin Globulin Albumin/Globulin Ratio Urine Color Yellow Urine Appearance Sl cloudy Urine pH 6.0 Ur Specific [place] 1.020 Urine Protein 100 mg/dl H Urine Glucose (UA) 500 mg/dl H Urine Ketones Negative Urine Blood Small H Urine Nitrite Negative Urine Bilirubin Negative Urine Urobilinogen 0.2 Ur Leukocyte Esterase Negative Urine RBC 0 - 2 Urine WBC 36 - 50 Ur Epithelial Cells 7 - 10 Urine Bacteria 1+ Hyaline Casts 0 - 5 Urine Mucus Light 10/31/19 Pt resting in bed, reports being tired from not sleeping last night and from recent admission from [facility]. Pt is A&ox3 but slow to respond, reporting she had a CVA last year and with her being tired she just takes longer to remember the answers. Moving all extremities with no difficulty. Neg neuro exam except slow to respond to questions and slight difficulty articulating "you can't teach an old dog new tricks". pt denies any dizziness, no SOB, or CP. Pt is able to sit up and move with little help. Lungs CTA, heart regular rate rhythm currently. pt denies needs other than req to nap. Pt was recently in ER 10/27/19, EKG NSR with QTc 444. Pt was found to have PNA and UTI, Levaquin ordered to treat both issues. PCP [facility] Travel Screening - Travel/Exposure Within Last 30 Days Have you traveled within the last 30 days?: No - Travel/Exposure Within Last Year Have you traveled outside the [place] in the last year?: No - Additonal Travel Details Have you been exposed to anyone with a communicable illness?: No - Travel Symptoms Symptom Screening: None Review of Systems Constitutional: Reports: As per HPI. Denies: Chills, Fever, Malaise, Night sweats, Weakness, Weight change Eyes: Reports: As per HPI. Denies: Eye discharge, Eye pain, Photophobia, Vision change ENT: Reports: As per HPI. Denies: Congestion, Dental pain, Ear pain, Epistaxis, Hearing loss, Throat pain Respiratory: Reports: As per HPI, Cough, Dyspnea. Denies: Hemoptysis, Stridor, Wheezes Cardiovascular: Reports: As per HPI. Denies: Arrhythmia, Chest pain, Dyspnea on exertion, Edema, Murmurs, Orthopnea, Palpitations, Paroxysmal nocturnal dyspnea, Rheumatic Fever, Syncope Endocrine: Reports: As per HPI. Denies: Fatigue, Heat or cold intolerance, Polydipsia, Polyuria Gastrointestinal: Reports: As per HPI. Denies: Abdominal pain, Constipation, Diarrhea, Hematemesis, Hematochezia, Melena, Nausea, Vomiting Genitourinary: Reports: As per HPI. Denies: Abnormal menses, Discharge, Dyspareunia, Dysuria, Frequency, Hematuria, Incontinence, Retention, Urgency Musculoskeletal: Reports: As per HPI. Denies: Arthralgia, Back pain, Gout, Joint swelling, Myalgia, Neck pain Skin: Reports: As per HPI. Denies: Bruising, Change in color, Change in hair/nails, Lesions, Pruritus, Rash Neurological: Reports: As per HPI. Denies: Abnormal gait, Confusion, Headache, Numbness, Paresthesias, Seizure, Tingling, Tremors, Vertigo, Weakness Psychiatric: Reports: As per HPI. Denies: Anxiety, Auditory hallucinations, Depression, Homicidal thoughts, Suicidal thoughts, Visual hallucinations Hematological/Lymphatic: Reports: As per HPI. Denies: Anemia, Blood Clots, Easy bleeding, Easy bruising, Swollen glands Past Medical History - SOCIAL HISTORY Smoking Status: Never smoker Alcohol Use: None Drug Use: None - RESPIRATORY Hx Respiratory Disorders: Yes Comment:: Sarcoidosis - CARDIOVASCULAR Hx Cardio Disorders: Yes Comment:: high chjolesterol - NEURO Hx Neuro Disorders: Yes Hx CVA: Yes () - GI Hx GI Disorders: Yes Hx Irritable Bowel: Yes - Hx Genitourinary Disorders: No Comment:: blood clot L kidney - ENDOCRINE Hx Endocrine Disorders: Yes Hx Diabetes: Yes - MUSCULOSKELETAL Hx Musculoskeletal Disorders: No - PSYCH Hx Psych Problems: No - HEMATOLOGY/ONCOLOGY Hx Hematology/Oncology Disorders: No Hx Blood Transfusions: Yes Hx Blood Transfusion Reaction: No Family Medical History Any Significant Family History?: No Hx Cancer: Mother, Brother/Sister Hx Diabetes: Mother, Brother/Sister Hx Heart Disease: Father Hx Kidney Disease: Brother/Sister H&P Meds/Allergies - Allergies Allergies: Allergies Allergy/AdvReac Type Severity Reaction Status Date / Time pioglitazone [From Actos] Allergy hypotension Verified 10/30/19 19:13 hx-told not to take it - Home Medications Home Medications Medication Instructions Recorded Confirmed Last Taken Atorvastatin Calcium [Lipitor] 1 tab PO DAILY 10/30/19 10/30/19 10/29/19 Enoxaparin Sodium [Lovenox] 60 mg SC DAILY 10/30/19 10/30/19 10/30/19 Insulin Detemir [Levemir Flextouch] 30 unit SQ BID 10/30/19 10/30/19 10/30/19 Sulfamethoxazole/Trimethoprim 1 tab PO BID 10/30/19 10/30/19 10/30/19 [Bactrim Ds Tablet] - Active Medications Active Medications: Current Medications Acetaminophen (Tylenol 500mg Tab) 1,000 mg PO Q6H PRN PRN Reason: PAIN - MILD(1-4)/FEVER Albuterol Sulfate (Albuterol Sulfate) 2.5 mg INH RESP.Q6H PRN PRN Reason: DIFFICULTY IN BREATHING Albuterol/Ipratropium (Duoneb) 3 ml INH RESP.Q6H PRN PRN Reason: WHEEZING Atorvastatin Calcium (Lipitor) 40 mg PO DAILY [facility] Enoxaparin Sodium (Lovenox) 60 mg SQ DAILY [facility] Glipizide (Glucotrol) 5 mg PO BID [facility] Levofloxacin/Dextrose (Levaquin 500mg Ivpb) 500 mg in 100 mls @ 125 mls/hr IVPB Q24H [facility] Stop: 11/05/19 21:01 Insulin Detemir (Levemir Flextouch) 30 unit SQ BID [facility] Losartan Potassium (Cozaar) 25 mg PO DAILY [facility] Methylprednisolone Sodium Succinate (Solu-Medrol) 60 mg IVP DAILY [facility] Midodrine (Midodrine Hcl) 2.5 mg PO TID [facility] Physical Exam - Vital Signs Vital Signs: Vital Signs - Last 24 Hrs Temp Pulse Pulse Resp BP Pulse Ox 10/31/19 07:28 99.1 F 89 20 153/74 92 L 10/31/19 04:00 98.5 F 84 18 166/81 93 L 10/31/19 00:00 97.9 F 85 18 160/70 95 10/30/19 23:18 86 16 163/84 92 L 10/30/19 23:08 86 16 163/84 92 L 10/30/19 21:50 93 L 10/30/19 21:21 89 163/84 93 L 10/30/19 20:10 86 178/82 90 L 10/30/19 19:10 97.8 F 95 H 16 190/109 96 - General General Appearance: Alert, Oriented x3, Cooperative, No acute distress Limitations: No limitations - Head Head exam: Normal inspection - Eye Eye exam: Normal appearance, PERRL, EOMI Pupils: Normal accommodation - ENT ENT exam: Normal exam, Mucous membranes moist, Normal external ear exam, Normal orophraynx Ear exam: Normal external inspection. negative: External canal tenderness Nasal Exam: Normal inspection. negative: Discharge, Sinus tenderness Mouth exam: Normal external inspection, Tongue normal Teeth exam: Normal inspection. negative: Dental caries Throat exam: Normal inspection. negative: Tonsillar erythema, Tonsillar exudate - Neck Neck exam: Normal inspection, Full ROM. negative: Tenderness - Respiratory Respiratory exam: Decreased breath sounds. negative: Respiratory distress - Cardiovascular Cardiovascular Exam: Regular rate, Normal rhythm, Normal heart sounds Peripheral Pulses: 2+: Radial (R), Radial (L), Dorsalis Pedis (R), Dorsalis Pedis (L) - GI/Abdominal GI/Abdominal exam: Soft, Normal bowel sounds. negative: Tenderness - Rectal Rectal exam: Deferred - exam: Deferred - Extremities Extremities exam: Normal inspection, Full ROM, Normal capillary refill. negative: Tenderness - Back Back exam: Reports: Normal inspection, Full ROM. Denies: Muscle spasm, Rash noted, Tenderness - Neurological Neurological exam: Alert, CN II-XII intact, Normal gait, Oriented X3 - Psychiatric Psychiatric exam: Flat affect, Normal mood - Skin Skin exam: Dry, Intact, Normal color, Warm Results - Labs Result Diagrams: 11/01/19 06:10 11/01/19 06:10 Labs Last 24 Hours: Laboratory Results - last 24 hr 10/30/19 10/30/19 10/30/19 19:43 19:43 19:43 WBC 11.6 RBC 4.37 Hgb 10.1 L Hct 34.9 L MCV 79.9 L MCH 23.1 L MCHC 28.9 L RDW 15.0 H Plt Count 270 MPV 11.7 H Gran % 81.6 H Lymphocytes % 9.3 L Monocytes % 6.0 Eosinophils % 2.6 Basophils % 0.5 Absolute Neutrophils 9.49 PT 10.7 INR 1.0 D-Dimer 0.57 Sodium 139 Potassium 4.2 Chloride 103 Carbon Dioxide 22.0 Anion Gap 14.0 BUN 24 H Creatinine 1.7 H Estimated GFR 32 POC Glucose Random Glucose 160 H Calcium 8.4 L Total Bilirubin 0.20 AST 28 ALT 19 Alkaline Phosphatase 190 H Total Protein 6.6 Albumin 3.2 L Globulin 3.4 Albumin/Globulin Ratio 0.9 L Urine Color Urine Appearance Urine pH Ur Specific [place] Urine Protein Urine Glucose (UA) Urine Ketones Urine Blood Urine Nitrite Urine Bilirubin Urine Urobilinogen Ur Leukocyte Esterase Urine RBC Urine WBC Ur Epithelial Cells Urine Bacteria Hyaline Casts Urine Mucus 10/30/19 10/31/19 10/31/19 20:40 07:30 07:31 WBC RBC Hgb Hct MCV MCH MCHC RDW Plt Count MPV Gran % Lymphocytes % Monocytes % Eosinophils % Basophils % Absolute Neutrophils PT INR D-Dimer Sodium Potassium Chloride Carbon Dioxide Anion Gap BUN Creatinine Estimated GFR POC Glucose Cancelled 181 H Random Glucose Calcium Total Bilirubin AST ALT Alkaline Phosphatase Total Protein Albumin Globulin Albumin/Globulin Ratio Urine Color Yellow Urine Appearance Sl cloudy Urine pH 6.0 Ur Specific [place] 1.020 Urine Protein 100 mg/dl H Urine Glucose (UA) 500 mg/dl H Urine Ketones Negative Urine Blood Small H Urine Nitrite Negative Urine Bilirubin Negative Urine Urobilinogen 0.2 Ur Leukocyte Esterase Negative Urine RBC 0 - 2 Urine WBC 36 - 50 Ur Epithelial Cells 7 - 10 Urine Bacteria 1+ Hyaline Casts 0 - 5 Urine Mucus Light 10/31/19 07:42 WBC 10.6 RBC 4.13 Hgb 9.6 L Hct 32.7 L MCV 79.2 L MCH 23.2 L MCHC 29.4 L RDW 15.0 H Plt Count 283 MPV 11.8 H Gran % 74.7 Lymphocytes % 15.2 L Monocytes % 6.9 Eosinophils % 2.6 Basophils % 0.6 Absolute Neutrophils Not Reportable PT INR D-Dimer Sodium Potassium Chloride Carbon Dioxide Anion Gap BUN Creatinine Estimated GFR POC Glucose Random Glucose Calcium Total Bilirubin AST ALT Alkaline Phosphatase Total Protein Albumin Globulin Albumin/Globulin Ratio Urine Color Urine Appearance Urine pH Ur Specific [place] Urine Protein Urine Glucose (UA) Urine Ketones Urine Blood Urine Nitrite Urine Bilirubin Urine Urobilinogen Ur Leukocyte Esterase Urine RBC Urine WBC Ur Epithelial Cells Urine Bacteria Hyaline Casts Urine Mucus - Imaging and Cardiology CT scan - head Status: Report reviewed VTE H&P Assessment - Risk for VTE Risk for VTE: Yes Risk Level: High Risk Assessment Date: 10/31/19 Risk Assessment Time: 10:24 VTE Orders Placed or Will Be Placed: Yes Plan - Inpatient Certification Inpatient Certification: Admit to inpatient care: Based on my medical assessment, after consideration of patient's risk factors (age, co-morbidities and patient presenting symptoms and acuity), I expect that this patient will remain in the hospital greater than or equal to two midnights and that the services needed warrant inpatient care because: Patient Risk Factors: fall, hypoxia, electrolyte management Estimated length of stay: The patient may reasonably be expected to be discharged or transferred to a hospital within 96 hours after admission to [facility]. Services needed: IV antibiotics, electrolyte management Post hospital care (if known): [] I certify that my determination is in accordance with my understanding of Medicare requirements for reasonable and necessary inpatient services. 10/31/19 10:25 - Detailed Diagnosis and Plan (1) Pneumonia Current Visit: Yes Status: Acute Qualifiers: Pneumonia type: due to unspecified organism Laterality: bilateral Lung location: lower lobe of lung Qualified Code(s): J18.9 - Pneumonia, unspecified organism Base Code: J18.9 - PNEUMONIA, UNSPECIFIED ORGANISM Comment: 10/31/19 -CXR shows samantha lower lobe PNA -pt reported SOB after a fall at home -Staring levaquin r/t co-infection with UTI -continue to monitor sats and supplement O2 if needed (2) Hypoxia Current Visit: Yes Status: Acute Base Code: R09.02 - HYPOXEMIA Comment: 10/31/19 -ER reports pt desating to the 80s, pt in the mid 90s on RA while on the floor -nursing to continue to monitor sats, encourage deep breathing/coughing (3) UTI (urinary tract infection) Current Visit: Yes Status: Acute Qualifiers: Urinary tract infection type: acute cystitis Hematuria presence: without hematuria Qualified Code(s): N30.00 - Acute cystitis without hematuria Base Code: N39.0 - URINARY TRACT INFECTION, SITE NOT SPECIFIED Comment: 1 01/01/19 -UA shows glucose, protein, blood with no leuk and contaminated sample with epithelial -pt was recently d/c from [facility], reporting UTI tx with bactrim outpt, changing to Levaquin r/t co-infection of PNA -Encouraged freq bladder emptying and PO intake (4) Cerebral arteriosclerosis with history of previous cerebrovascular accident Current Visit: No Status: Acute Base Code: I67.2 - CEREBRAL ATHEROSCLEROSIS; Z86.73 - PRSNL HX OF TIA (TIA), AND CEREB INFRC W/O RESID DEFICITS Comment: 10/31/19 -CT head shows old ischemia, no new acute process -pt was just d/c from [facility] for r/o CVA, h/o CVA last year -pt continues with anticoagulation r/t PAD and h/o clot (5) Anticoagulation adequate Current Visit: Yes Status: Acute Base Code: Z79.01 - SKILLED NURSING (CURRENT) USE OF ANTICOAGULANTS Comment: 10/31/19 -pt is usually on coumadin but was bridged to lovenox r/t Colonoscopy and angiogram that were scheduled this month -no further anticoagulation needed
[2019-10-31] MEDS: METHYLPREDNISOLONE PF 125MG/VIAL IVP SCH (11:54)
[2019-10-31] MEDS: ATORVASTATIN 20 MG TABLET PO SCH (11:58)
[2019-10-31] MEDS: GLIPIZIDE 5 MG TABLET PO SCH ×2 (11:59→22:26)
[2019-10-31] MEDS: LOSARTAN POTASSIUM 25 MG TABLET PO SCH (11:59)
[2019-10-31] MEDS: ENOXAPARIN 60 MG/0.6 ML SYR SQ SCH (11:59)
[2019-10-31] MEDS: LEVEMIR FLEXTOUCH 100 UNIT/ML INSULIN PEN SQ SCH ×2 (12:01→22:27)
[2019-10-31] MEDS: MIDODRINE HCL 5 MG TABLET PO SCH ×3 (12:04→22:29)
[2019-10-31] MEDS: NOVOLOG FLEXPEN (INSULIN ASPART) 100 UNITS/ML SQ SCH ×2 (12:05→17:39)
[2019-11-01 06:36] LABS: ABSOLUTE NEUTROPHIL COUNT 8.85; BASO % 0.2 % (0-6); EOS % 0.1 % (0-6); GRAN % 81.5 % (47-80); HEMOGLOBIN 9.4 gm/dl (11.6-16.0); MEAN CELL VOLUME 77.9 fl (81-97); MEAN CORPUSCULAR HGB CONC 29.4 g/dl (32-36); MEAN PLATELET VOLUME 11.7 fl (7.4-10.4); MONO % 7.2 % (0-9); PLATELET COUNT 282 K/uL (130-400); RED BLOOD COUNT 4.11 M/uL (3.80-5.40); RED CELL DISTRIBUTION WIDTH 14.6 % (11.5-14.5); WHITE BLOOD COUNT W/O DIFF 10.9 K/uL (4.2-12.2)
[2019-11-01 06:49] LABS: CREATININE 1.4 mg/dL (0.5-0.9)
[2019-11-01 06:59] LABS: MEAN CORPUSCULAR HEMOGLOBIN 22.8 pg (27-33)
[2019-11-01] MEDS: NOVOLOG FLEXPEN (INSULIN ASPART) 100 UNITS/ML SQ SCH (08:55)
[2019-11-01] MEDS: LOSARTAN POTASSIUM 25 MG TABLET PO SCH (10:00)
[2019-11-01] MEDS: ENOXAPARIN 60 MG/0.6 ML SYR SQ SCH (10:00)
[2019-11-01] MEDS: METHYLPREDNISOLONE PF 125MG/VIAL IVP SCH (10:01)
[2019-11-01] MEDS: MIDODRINE HCL 5 MG TABLET PO SCH (10:01)
[2019-11-01] MEDS: GLIPIZIDE 5 MG TABLET PO SCH (10:04)
[2019-11-01] MEDS: ATORVASTATIN 20 MG TABLET PO SCH (10:06)
[2019-11-01] MEDS: LEVEMIR FLEXTOUCH 100 UNIT/ML INSULIN PEN SQ SCH (10:08)
--- NOTE | 2019-11-01 12:01 | Discharge Summary ---
Providers Discharge Summary Date: 11/01/19 Date of admission: 10/30/19 23:31 Expected Date of Discharge: 11/01/19 Attending physician: SALENA FARRELL Primary care physician: SALENA FARRELL Physical Exam - Vital Signs Vital Signs: Vital Signs - Last 24 Hrs Temp Pulse Resp BP Pulse Ox 11/01/19 09:00 79 16 11/01/19 07:40 98.0 F 83 16 171/91 95 11/01/19 06:00 98.1 F 78 18 178/73 94 L 11/01/19 00:00 98.0 F 79 18 172/94 94 L 10/31/19 21:00 80 16 10/31/19 20:00 98.7 F 86 18 167/81 93 L 10/31/19 16:02 98.2 F 88 20 151/70 94 L - General General Appearance: Alert, Oriented x3, Cooperative, No acute distress Limitations: No limitations - Head Head exam: Normal inspection - Eye Eye exam: Normal appearance, PERRL, EOMI Pupils: Normal accommodation - ENT ENT exam: Normal exam, Mucous membranes moist, Normal external ear exam, Normal orophraynx Ear exam: Normal external inspection. negative: External canal tenderness Nasal Exam: Normal inspection. negative: Discharge, Sinus tenderness Mouth exam: Normal external inspection, Tongue normal Teeth exam: Normal inspection. negative: Dental caries Throat exam: Normal inspection. negative: Tonsillar erythema, Tonsillar exudate - Neck Neck exam: Normal inspection, Full ROM. negative: Tenderness - Respiratory Respiratory exam: Decreased breath sounds. negative: Respiratory distress - Cardiovascular Cardiovascular Exam: Regular rate, Normal rhythm, Normal heart sounds Peripheral Pulses: 2+: Radial (R), Radial (L), Dorsalis Pedis (R), Dorsalis Pedis (L) - GI/Abdominal GI/Abdominal exam: Soft, Normal bowel sounds. negative: Tenderness - Rectal Rectal exam: Deferred - exam: Deferred - Extremities Extremities exam: Normal inspection, Full ROM, Normal capillary refill. negative: Tenderness - Back Back exam: Reports: Normal inspection, Full ROM. Denies: Muscle spasm, Rash noted, Tenderness - Neurological Neurological exam: Alert, CN II-XII intact, Normal gait, Oriented X3 - Psychiatric Psychiatric exam: Flat affect, Normal mood - Skin Skin exam: Dry, Intact, Normal color, Warm Hospitalization - Hospitalization Admission Diagnosis: pneumonia w hypoxia, uti - Problem List/Discharge Diagnosis (1) Pneumonia Current Visit: Yes Status: Acute Discharge Diagnosis: Pneumonia type: due to unspecified organism Laterality: bilateral Lung location: lower lobe of lung Qualified Code(s): J18.9 - Pneumonia, unspecified organism Base Code: J18.9 - PNEUMONIA, UNSPECIFIED ORGANISM Comment: 11/01/19 -Lungs CTA, pt denies SOB, dizziness and is sitting EOB, dressed and req to go home - at bedside reports he feels pt is back to normal and is ready to take her home -Ambulating pulsox wnl per RT, pt to d.c with levaquin, has f/u with PCP 11/03/19 (EKG 10/27/19 QTc 444) 10/31/19 -CXR shows samantha lower lobe PNA -pt reported SOB after a fall at home -Staring levaquin r/t co-infection with UTI -continue to monitor sats and supplement O2 if needed (2) Hypoxia Current Visit: Yes Status: Acute Base Code: R09.02 - HYPOXEMIA Comment: 10/31/19 -ER reports pt desating to the 80s, pt in the mid 90s on RA while on the floor -nursing to continue to monitor sats, encourage deep breathing/coughing (3) UTI (urinary tract infection) Current Visit: Yes Status: Acute Discharge Diagnosis: Urinary tract infection type: acute cystitis Hematuria presence: without hematuria Qualified Code(s): N30.00 - Acute cystitis without hematuria Base Code: N39.0 - URINARY TRACT INFECTION, SITE NOT SPECIFIED Comment: 10/31/19 -UA shows glucose, protein, blood with no leuk and contaminated sample with epithelial -pt was recently d/c from [facility], reporting UTI tx with bactrim outpt, changing to Levaquin r/t co-infection of PNA -Encouraged freq bladder emptying and PO intake (4) Cerebral arteriosclerosis with history of previous cerebrovascular accident Current Visit: No Status: Acute Base Code: I67.2 - CEREBRAL ATHEROSCLEROSIS; Z86.73 - PRSNL HX OF TIA (TIA), AND CEREB INFRC W/O RESID DEFICITS Comment: 10/31/19 -CT head shows old ischemia, no new acute process -pt was just d/c from [facility] for r/o CVA, h/o CVA last year -pt continues with anticoagulation r/t PAD and h/o clot (5) Anticoagulation adequate Current Visit: Yes Status: Acute Base Code: Z79.01 - [facility] (CURRENT) USE OF ANTICOAGULANTS Comment: 10/31/19 -pt is usually on coumadin but was bridged to lovenox r/t Colonoscopy and angiogram that were scheduled this month -no further anticoagulation needed - Hospitalization Course Procedures: Imaging and X-Rays 10/30/19 20:29 CXR [CHEST 2 VIEWS] [RAD] Stat HEAD WO CONTRAST [CT] Stat Abnormal Labs: Abnormal Lab Results 10/30/19 10/30/19 10/30/19 Range/Units 19:43 19:43 20:40 Hgb 10.1 L (11.6-16.0) gm/dl Hct 34.9 L (35.0-47.0) % MCV 79.9 L (81-97) fl MCH 23.1 L (27-33) pg MCHC 28.9 L (32-36) g/dl RDW 15.0 H (11.5-14.5) % MPV 11.7 H (7.4-10.4) fl Gran % 81.6 H (47-80) % Lymphocytes % 9.3 L (16-45) % Potassium (3.4-4.5) mmol/L BUN 24 H (8-23) mg/dL Creatinine 1.7 H (0.5-0.9) mg/dL POC Glucose (70-110) mg/dL Random Glucose 160 H (74-109) mg/dL Calcium 8.4 L (8.8-10.2) mg/dL Alkaline Phosphatase 190 H (35-104) U/L Albumin 3.2 L (4.0-5.0) g/dL Albumin/Globulin Ratio 0.9 L (1.1-1.8) Urine Protein 100 mg/dl H (NEGATIVE) Urine Glucose (UA) 500 mg/dl H (NEGATIVE) Urine Blood Small H (NEGATIVE) 10/31/19 10/31/19 10/31/19 Range/Units 07:31 07:42 11:35 Hgb 9.6 L (11.6-16.0) gm/dl Hct 32.7 L (35.0-47.0) % MCV 79.2 L (81-97) fl MCH 23.2 L (27-33) pg MCHC 29.4 L (32-36) g/dl RDW 15.0 H (11.5-14.5) % MPV 11.8 H (7.4-10.4) fl Gran % (47-80) % Lymphocytes % 15.2 L (16-45) % Potassium (3.4-4.5) mmol/L BUN (8-23) mg/dL Creatinine (0.5-0.9) mg/dL POC Glucose 181 H 263 H (70-110) mg/dL Random Glucose (74-109) mg/dL Calcium (8.8-10.2) mg/dL Alkaline Phosphatase (35-104) U/L Albumin (4.0-5.0) g/dL Albumin/Globulin Ratio (1.1-1.8) Urine Protein (NEGATIVE) Urine Glucose (UA) (NEGATIVE) Urine Blood (NEGATIVE) 10/31/19 10/31/19 11/01/19 Range/Units 18:17 22:00 06:10 Hgb 9.4 L (11.6-16.0) gm/dl Hct 32.0 L (35.0-47.0) % MCV 77.9 L (81-97) fl MCH 22.8 L (27-33) pg MCHC 29.4 L (32-36) g/dl RDW 14.6 H (11.5-14.5) % MPV 11.7 H (7.4-10.4) fl Gran % 81.5 H (47-80) % Lymphocytes % 11.0 L (16-45) % Potassium (3.4-4.5) mmol/L BUN (8-23) mg/dL Creatinine (0.5-0.9) mg/dL POC Glucose 302 H 250 H (70-110) mg/dL Random Glucose (74-109) mg/dL Calcium (8.8-10.2) mg/dL Alkaline Phosphatase (35-104) U/L Albumin (4.0-5.0) g/dL Albumin/Globulin Ratio (1.1-1.8) Urine Protein (NEGATIVE) Urine Glucose (UA) (NEGATIVE) Urine Blood (NEGATIVE) 11/01/19 11/01/19 Range/Units 06:10 07:27 Hgb (11.6-16.0) gm/dl Hct (35.0-47.0) % MCV (81-97) fl MCH (27-33) pg MCHC (32-36) g/dl RDW (11.5-14.5) % MPV (7.4-10.4) fl Gran % (47-80) % Lymphocytes % (16-45) % Potassium 4.8 H (3.4-4.5) mmol/L BUN 28 H (8-23) mg/dL Creatinine 1.4 H (0.5-0.9) mg/dL POC Glucose 191 H (70-110) mg/dL Random Glucose 226 H (74-109) mg/dL Calcium (8.8-10.2) mg/dL Alkaline Phosphatase (35-104) U/L Albumin (4.0-5.0) g/dL Albumin/Globulin Ratio (1.1-1.8) Urine Protein (NEGATIVE) Urine Glucose (UA) (NEGATIVE) Urine Blood (NEGATIVE) Discharge Medications - Discharge Medications Prescriptions: Albuterol Sulfate [Albuterol Sulfate Hfa] 1 - 2 puff IH Q4HR PRN 14 Days hfa.[email or web address] PRN Reason: Difficulty In Breathing Levofloxacin [Levaquin] 500 mg PO DAILY 7 Days #7 tablet Prednisone [Prednisone 20Mg] 40 mg PO DAILY 4 Days #8 tab Home Medications: Ambulatory Orders Losartan Potassium 1 tab PO DAILY 10/27/19 [Last Taken 10/30/19] Atorvastatin Calcium [Lipitor] 1 tab PO DAILY 10/30/19 [Last Taken 10/29/19] Enoxaparin Sodium [Lovenox] 60 mg SC DAILY 10/30/19 [Last Taken 10/30/19] Insulin Detemir [Levemir Flextouch] 30 unit SQ BID 10/30/19 [Last Taken 10/30/19] Acetaminophen [Tylenol 500Mg Tab] 1,000 mg PO Q6H PRN tablet 11/01/19 [Last Taken Unknown] Albuterol Sulfate [Albuterol Sulfate Hfa] 1 - 2 puff IH Q4HR PRN 14 Days hfa.aer.ad 11/01/19 [Last Taken Unknown] Levofloxacin [Levaquin] 500 mg PO DAILY 7 Days #7 tablet 11/01/19 [Last Taken Unknown] Prednisone [Prednisone 20Mg] 40 mg PO DAILY 4 Days #8 tab 11/01/19 [Last Taken Unknown] Discharge Plan - Discharge Instructions Activity at Discharge: Increase Activity as Tolerated Diet at Discharge: Advance to Usual Diet Additional Instructions: You have a follow up appointment with Dr Farrell November 03, 2019 at 2:20pm. Please return to ER for return shortness of breath, headache, dizziness, weakness of one arm or leg, or edema of legs. Continue to monitor legs, if you are able to push in and make a large dent or wake up with swollen legs please go to ER. Stop Bactrim and continue Levaquin, try not to take Zofran unless absolutely necessary. Quality Measures - Quality Measures Quality Measures: Documentation of Current Medications in Medical Record, Screening for High Blood Pressure and F/U Documented - Current Medications Quality Measure: Measure #130: Documentation of Current Medications Documentation of Current Medications: <Current Medications Documented/Reviewed> [G8427] - Blood Pressure Screening Quality Measure: Screening for High Blood Pressure and Follow-Up Documented Does Patient Have Any of the Following: Active Dx of HTN Blood Pressure Classification: Hypertensive Reading Systolic Measurement: 171 Diastolic Measurement: 91 Screening for High Blood Pressure: Patient Exclusion, Hx of HTN [G9744] - Elder Abuse Suspicion Index EASI Reference Information: Davy REYES, Steve C, Jono D, aMy Horowitz.Development and validation of a tool to assist physicians identification of elder abuse: The Elder Abuse Suspicion Index (EASI ). Journal of Elder Abuse and Neglect, 2008; 20 (3): 276-300.
== END 2019-11-01 12:25 | disposition home or self-care (01) | DRG 194 ==
LOC: ER 19:04 → MEDSURG 23:31
PROVIDERS: ADMIT Internal Medicine; ATTEND Internal Medicine
DX: J18.9 Pneumonia, unspecified organism (principal); N30.00 Acute cystitis without hematuria; N28.0 Ischemia and infarction of kidney; D86.9 Sarcoidosis, unspecified; E78.00 Pure hypercholesterolemia, unspecified; Z79.01 Long term (current) use of anticoagulants; E11.9 Type 2 diabetes mellitus without complications; Z86.73 Personal history of transient ischemic attack (TIA), and cerebral infarction without residual deficits; Z79.4 Long term (current) use of insulin; R09.02 Hypoxemia; Z23 Encounter for immunization
CPT/HCPCS: 36416; 70450; 71046; 80048; 80053; 81001; 82948; 85025; 85379; 85610; 90686; 94618; 96365; 99223; 99285; J1650; J1956; J2930

== ENCOUNTER 2019-11-16 14:29 | Day surgery (SDC) | payer BC ==
[2019-11-16] MEDS ORDERED: PROPOFOL 10 MG/ML VIAL IV ONE (14:30)
[2019-11-16] MEDS ORDERED: LIDOCAINE 2% MDV (20MG/ML) 20ML VIAL IV ONE (14:30)
--- NOTE | 2019-11-19 08:20 | Operative Note ---
OPERATION: COLONOSCOPY with random biopsy. PREOPERATIVE DIAGNOSIS: Chronic diarrhea. POSTOPERATIVE DIAGNOSIS: Normal exam, rule out microscopic colitis. PREPARATION QUALITY: Good. ESTIMATED BLOOD LOSS: Minimum. SPECIMENS: Random colon. COMPLICATIONS: None apparent. PROCEDURE: After informed consent was obtained from the patient, she was placed in the left lateral decubitus position in the endoscopy suite, sedated and monitored by the department of anesthesia. Digital rectal exam was unremarkable. A well-lubricated [id number] colonoscope was inserted into the rectum and advanced to the cecum. Preparation quality was good. The cecum, cecal bulb, ileocecal valve, appendiceal orifice, ascending colon, transverse colon, descending colon, sigmoid colon, and rectum were free of inflammatory changes, mass lesions, or polyps. Random biopsies were obtained from the right colon, transverse colon, and rectosigmoid colon. J-turn views of the anorectum were unrevealing. The endoscope was straightened, the rectal ampulla deflated, and the endoscope was removed. RECOMMENDATIONS: I would recommend the patient resume her medications and diet. If evidence of microscopic colitis is noted, I would suggest treatment of microscopic colitis. If the biopsies are negative for microscopic colitis, perhaps the patient may have some overflow issues. In any event, I would suggest the addition of a supplement fiber such as Benefiber or Citrucel. As always, thank you for allowing me to participate in the healthcare of your patients. RODNEY
== END 2019-11-16 16:30 | disposition home or self-care (01) ==
LOC: HOP 14:29
PROVIDERS: ATTEND Internal Medicine Gastroenterology
DX: Z12.11 Encounter for screening for malignant neoplasm of colon (principal); Z95.0 Presence of cardiac pacemaker; I25.2 Old myocardial infarction; I48.91 Unspecified atrial fibrillation; I25.10 Atherosclerotic heart disease of native coronary artery without angina pectoris; Z95.1 Presence of aortocoronary bypass graft; I63.9 Cerebral infarction, unspecified; R53.1 Weakness; E11.9 Type 2 diabetes mellitus without complications
CPT/HCPCS: 00812; G0121

== ENCOUNTER 2019-11-26 18:47 | Observation (INO) | payer BC ==
--- NOTE | 2019-11-26 19:05 | Emergency Department Record ---
History of Present Illness - General Chief Complaint: Shortness of breath Stated Complaint: SOB AND LEG SWELLING Time Seen by Provider: 11/26/19 18:53 Source: Patient, Family Mode of Arrival: Ambulatory Limitations: No limitations - History of Present Illness Initial Comments: The patient is here due to a 4-5 day hx of SOB and DUENAS. She does have mild CP with the SOB at times but has none now. The patient also complaints of leg swelling and a 10-15 lb weight gain. The patient does have a hx of CHF and has had issues like this in the past. She denies any new medicines or recent illnesses. MD Complaint: Shortness of breath Onset/Timin -: Days(s) Improves With: Nothing Worsens With: Exertion Known History Of: Congestive heart failure, Other Associated Symptoms: Chest pain - Related Data Home Medications Medication Instructions Recorded Confirmed Last Taken Furosemide [Lasix] 20 mg PO ASDIR PRN 11/26/19 11/26/19 Unknown Midodrine HCl 2.5 mg PO TID PRN 11/26/19 11/26/19 Unknown Warfarin Sodium 2.5 mg PO DAILY 11/26/19 11/26/19 11/25/19 Previous Rx's Medication Instructions Recorded Acetaminophen [Tylenol 500Mg Tab] 1,000 mg PO Q6H PRN tablet 11/01/19 Albuterol Sulfate [Albuterol 1 - 2 puff IH Q4HR PRN 14 Days 11/01/19 Sulfate Hfa] hfa.aer.ad Allergies Allergy/AdvReac Type Severity Reaction Status Date / Time pioglitazone [From Actos] Allergy hypotension Verified 11/26/19 19:07 hx-told not to take it Travel Screening - Travel/Exposure Within Last 30 Days Have you traveled within the last 30 days?: No - Travel/Exposure Within Last Year Have you traveled outside the [place] in the last year?: No - Additonal Travel Details Have you been exposed to anyone with a communicable illness?: No - Travel Symptoms Symptom Screening: None Review of Systems Constitutional: Denies: Chills, Fever, Malaise Eyes: Denies: Eye discharge ENT: Denies: Congestion Respiratory: Reports: Dyspnea. Denies: Cough Cardiovascular: Denies: Syncope Endocrine: Reports: Fatigue Gastrointestinal: Denies: Nausea Genitourinary: Denies: Dysuria Musculoskeletal: Denies: Arthralgia Neurological: Denies: Abnormal gait Past Medical History - SOCIAL HISTORY Smoking Status: Never smoker Alcohol Use: None Drug Use: None - RESPIRATORY Hx Respiratory Disorders: Yes Hx Pneumonia: Yes Comment:: Sarcoidosis - CARDIOVASCULAR Hx Cardio Disorders: Yes Hx CHF: Yes Hx Deep Vein Thrombosis: Yes Hx Heart Attack: Yes (unknown on year) Hx Hypertension: Yes Hx Hypotension: Yes Hx Coronary Artery Bypass Graft: Yes (quad) Comment:: high chjolesterol - NEURO Hx Neuro Disorders: Yes Hx CVA: Yes () - GI Hx GI Disorders: Yes Hx Irritable Bowel: Yes - Hx Genitourinary Disorders: Yes Hx Renal Disease: Yes Comment:: blood clot L kidney - ENDOCRINE Hx Endocrine Disorders: Yes Hx Diabetes: Yes - MUSCULOSKELETAL Hx Musculoskeletal Disorders: No - PSYCH Hx Psych Problems: No - HEMATOLOGY/ONCOLOGY Hx Hematology/Oncology Disorders: No Hx Blood Transfusions: Yes Hx Blood Transfusion Reaction: No Family Medical History Any Significant Family History?: No Hx Cancer: Mother, Brother/Sister Hx Diabetes: Mother, Brother/Sister Hx Heart Disease: Father Hx Kidney Disease: Brother/Sister Physical Exam - General General Appearance: Alert, Cooperative, No acute distress - Head Head exam: Atraumatic, Normocephalic - Eye Eye exam: Normal appearance, PERRL - ENT Throat exam: Normal inspection. negative: Tonsillar erythema, Tonsillar exudate - Neck Neck exam: Normal inspection, Full ROM. negative: Tenderness - Respiratory Respiratory exam: Rales (at the bases.). negative: Normal lung sounds bilaterally, Respiratory distress, Rhonchi - Cardiovascular Cardiovascular Exam: Regular rate, Normal rhythm, Normal heart sounds. negative: Diastolic murmur, Systolic murmur - GI/Abdominal GI/Abdominal exam: Soft, Normal bowel sounds. negative: Tenderness - Extremities Extremities exam: Normal inspection, Full ROM, Normal capillary refill, Pedal edema (1+ bilaterally.). negative: Tenderness - Neurological Neurological exam: Alert, Normal gait. negative: Abnormal gait, Motor sensory deficit - Psychiatric Psychiatric exam: negative: Anxious Course Vital Signs 11/26/19 18:49 Temperature 98.5 F Pulse Rate 90 Respiratory 16 Rate Blood Pressure 154/119 Pulse Ox 94 L - Reevaluation(s) Reevaluation #1: The patient is doing better a this time. I did discuss the results with the patient and the need for an overnight admission and she does agree to the plan. I also did discuss the case with Harriet ([employer]) and she does accept the admission for Dr. Lamar. 11/26/19 19:50 Medical Decision Making - Data Complexity MDM Data: Labs Ordered and/or Reviewed, X-Ray Ordered and/or Reviewed, EKG Ordered and/or Reviewed - Lab Data Result diagrams: 11/26/19 19:00 11/26/19 19:00 - EKG Data -: EKG Interpreted by Me EKG: No Acute Changes, Unchanged From Previous - Radiology Data Radiology results: Image reviewed (CXR: Mild PVC with persistent LLL opacity or atelectasis.) Disposition Disposition: Admit Clinical Impression: CHF (congestive heart failure) Qualifiers: Heart failure type: unspecified Heart failure chronicity: unspecified Qualified Code(s): I50.9 - Heart failure, unspecified Disposition: Still a Patient at [facility] Decision to Admit: Admit from ER Decision to Admit Date: 11/26/19 Decision to Admit Time: 19:51 Accepting Physician: Brianda Time Discussed w/Accepting Physician: 19:51 Condition: (2) Stable Forms: Patient Portal Access Time of Disposition: 19:51 Quality - Quality Measures Quality Measures: N/A - Blood Pressure Screening View Details: Yes Does Patient Have Any of the Following: Active Dx of HTN Blood Pressure Classification: Hypertensive Reading Systolic Measurement: 154 Diastolic Measurement: 119 Screening for High Blood Pressure: Patient Exclusion, Hx of HTN [G9744]
[2019-11-26 19:12] LABS: ABSOLUTE NEUTROPHIL COUNT 5.59; BASO % 0.6 % (0-6); EOS % 4.8 % (0-6); HEMATOCRIT 32.3 % (35.0-47.0); HEMOGLOBIN 9.1 gm/dl (11.6-16.0); LYMPH % 18.2 % (16-45); MEAN CELL VOLUME 79.8 fl (81-97); MEAN CORPUSCULAR HGB CONC 28.2 g/dl (32-36); MEAN PLATELET VOLUME 11.3 fl (7.4-10.4); MONO % 9.4 % (0-9); PLATELET COUNT 341 K/uL (130-400); RED BLOOD COUNT 4.05 M/uL (3.80-5.40); RED CELL DISTRIBUTION WIDTH 15.7 % (11.5-14.5); WHITE BLOOD COUNT W/O DIFF 8.3 K/uL (4.2-12.2)
[2019-11-26 19:13] LABS: MEAN CORPUSCULAR HEMOGLOBIN 22.4 pg (27-33)
[2019-11-26 19:26] LABS: BILIRUBIN,TOTAL 0.2 mg/dL (0.2-1.0); CREATININE 1.6 mg/dL (0.5-0.9)
[2019-11-26] MEDS ORDERED: FUROSEMIDE IV 40MG/4ML VIAL IVP ONE (19:26)
[2019-11-26 19:27] LABS: TOTAL PROTEIN 6.2 g/dL (6.6-8.7)
--- NOTE | 2019-11-26 19:28 | RADIOLOGY REPORT ---
EXAMINATION: Two View Chest Radiographs EXAM DATE: 11/26/2019 7:22 PM TECHNIQUE: Frontal and lateral views INDICATION: JESUS COMPARISON: October 30, 2019 ENCOUNTER: Not applicable FINDINGS: The heart, mediastinum, and pulmonary vasculature are stable. Continued left lower lobe infiltrate. A telectasis or persistent infiltrate at the right lung base. Small bilateral pleural effusions. No pne umothorax. Redemonstration postsurgical change. IMPRESSION: Left lower lobe infiltrate. Atelectasis or residual infiltrate at the right lung base Small bilateral pleural effusions Dictated by: Radha Yang MD on 11/26/2019 7:25 PM. .
[2019-11-26 19:29] LABS: INR 1.6; PARTIAL THROMBOPLASTIN TIME 32.2 SECONDS (24.5-39.1); PROTHROMBIN TIME (PATIENT) 16.1 SECONDS (9.5-12.1)
[2019-11-26 19:32] LABS: ALBUMIN 3.1 g/dL (4.0-5.0)
[2019-11-26 19:42] LABS: THYROID STIMULATING HORMONE 2.19 uIU/mL (0.270-4.20)
[2019-11-26] MEDS ORDERED: ALBUTEROL HFA 8 GM INHALER INH PRN (20:28)
[2019-11-26] MEDS ORDERED: ACETAMINOPHEN 325 MG TAB PO PRN (20:28)
[2019-11-26] MEDS ORDERED: ATORVASTATIN 20 MG TABLET PO SCH (21:00)
[2019-11-26] MEDS ORDERED: MIDODRINE HCL 5 MG TABLET PO PRN (22:00)
[2019-11-26] MEDS: ATORVASTATIN 20 MG TABLET PO SCH (22:05)
[2019-11-26] MEDS: ASPIRIN 325 MG TAB ENTERIC-COATED PO SCH (22:05)
[2019-11-26] MEDS: GABAPENTIN 300 MG CAPSULE PO SCH (22:05)
[2019-11-26] MEDS: LEVEMIR FLEXTOUCH 100 UNIT/ML INSULIN PEN SQ SCH (22:05)
[2019-11-26] MEDS: GLIPIZIDE 5 MG TABLET PO SCH (22:05)
[2019-11-27 07:39] LABS: ABSOLUTE NEUTROPHIL COUNT 4.14; BASO % 0.6 % (0-6); EOS % 5.6 % (0-6); GRAN % 61.2 % (47-80); HEMOGLOBIN 9.1 gm/dl (11.6-16.0); MEAN CORPUSCULAR HGB CONC 28.4 g/dl (32-36); MEAN PLATELET VOLUME 10.7 fl (7.4-10.4); MONO % 9.6 % (0-9); PLATELET COUNT 332 K/uL (130-400); RED BLOOD COUNT 4.05 M/uL (3.80-5.40); RED CELL DISTRIBUTION WIDTH 15.7 % (11.5-14.5); WHITE BLOOD COUNT W/O DIFF 6.8 K/uL (4.2-12.2)
[2019-11-27 07:40] LABS: MEAN CORPUSCULAR HEMOGLOBIN 22.4 pg (27-33)
[2019-11-27 07:55] LABS: CREATININE 1.5 mg/dL (0.5-0.9)
[2019-11-27] MEDS: NOVOLOG FLEXPEN (INSULIN ASPART) 100 UNITS/ML SQ SCH ×3 (08:37→19:22)
[2019-11-27] MEDS ORDERED: WARFARIN 2.5 MG TAB PO SCH (10:00)
[2019-11-27] MEDS ORDERED: WARFARIN 1 MG TABLET PO ONE (10:00)
--- NOTE | 2019-11-27 11:04 | History & Physical ---
History of Present Illness - Date of Service Date of Service for History & Physical: 11/27/19 - History of Present Illness Admitting Diagnosis: 1. Acute CHF History of Present Illness: 11/27/19: Patient presented to ER for 4-5 (since Saturday) day BLE swelling, SOB and DUENAS. Patient reported leg swelling and 10-15 pound weight gain. She has CHF with a h istory of the same symptoms, reporting more mild exacerbations. Pt states she has Lasix prescribed as needed, but has not taken in a while. Was recently here for pneumonia in October. Patient reported having a colonoscopy approx. 2 weeks ago as well as an Echo within the last 6 months. 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 PCP: Dr Lamar ED Course: Vital Signs Temp Pulse Pulse Resp BP BP BP 11/27/19 08:18 98.0 F 80 16 131/79 11/27/19 05:00 98.0 F 84 18 149/70 11/27/19 01:13 99.8 F H 86 18 150/77 11/26/19 20:25 97.9 F 89 18 154/69 11/26/19 20:00 11/26/19 19:32 90 158/79 11/26/19 18:49 98.5 F 90 16 154/119 Pulse Ox 11/27/19 08:18 96 11/27/19 05:00 97 11/27/19 01:13 94 L 11/26/19 20:25 95 11/26/19 20:00 95 11/26/19 19:32 98 11/26/19 18:49 94 L Intake & Output 11/25/19 11/26/19 11/27/19 11/28/19 06:59 06:59 06:59 06:59 Intake Total 240 Balance 240 Weight 167 lb 4.8 oz Intake: Oral 240 Other: Date of Last Bowel 11/26/19 Movement Weight Measurement Method Standing Scale Laboratory 11/27/19 11/27/19 11/27/19 07:30 07:30 07:30 WBC 6.8 RBC 4.05 Hgb 9.1 L Hct 32.0 L MCV 79.0 L MCH 22.4 L MCHC 28.4 L RDW 15.7 H Plt Count 332 MPV 10.7 H Gran % 61.2 Lymphocytes % 23.0 Monocytes % 9.6 H Eosinophils % 5.6 Basophils % 0.6 Absolute Neutrophils 4.14 PT INR APTT Sodium 142 Potassium 4.2 Chloride 107 Carbon Dioxide 23.0 Anion Gap 12.0 BUN 31 H Creatinine 1.5 H Estimated GFR 37 POC Glucose Random Glucose 105 Calcium 8.4 L Total Bilirubin AST ALT Alkaline Phosphatase Troponin T 0.031 H NT-Pro-B Natriuret Pep Total Protein Albumin Globulin Albumin/Globulin Ratio TSH 11/26/19 11/26/19 11/26/19 23:30 21:51 19:00 WBC RBC Hgb Hct MCV MCH MCHC RDW Plt Count MPV Gran % Lymphocytes % Monocytes % Eosinophils % Basophils % Absolute Neutrophils PT INR APTT Sodium 144 Potassium 4.2 Chloride 107 Carbon Dioxide 24.0 Anion Gap 13.0 BUN 30 H Creatinine 1.6 H Estimated GFR 35 POC Glucose 238 H Random Glucose 139 H Calcium 8.2 L Total Bilirubin 0.20 AST 10 ALT 12 Alkaline Phosphatase 180 H Troponin T 0.025 H 0.030 H NT-Pro-B Natriuret Pep 3792.00 H Total Protein 6.2 L Albumin 3.1 L Globulin 3.1 Albumin/Globulin Ratio 1.0 L TSH 2.19 11/26/19 11/26/19 19:00 19:00 WBC 8.3 RBC 4.05 Hgb 9.1 L Hct 32.3 L MCV 79.8 L MCH 22.4 L MCHC 28.2 L RDW 15.7 H Plt Count 341 MPV 11.3 H Gran % 67.0 Lymphocytes % 18.2 Monocytes % 9.4 H Eosinophils % 4.8 Basophils % 0.6 Absolute Neutrophils 5.59 PT 16.1 H INR 1.6 APTT 32.2 Sodium Potassium Chloride Carbon Dioxide Anion Gap BUN Creatinine Estimated GFR POC Glucose Random Glucose Calcium Total Bilirubin AST ALT Alkaline Phosphatase Troponin T NT-Pro-B Natriuret Pep Total Protein Albumin Globulin Albumin/Globulin Ratio TSH Past Surgical History Date/Surgery Bypass quad 04/2017; Lung exploratory-; Ureteral stent ; Cataract removal Levar. ; Laser surgery to eyes Past Medical History Hx Respiratory Disorders Yes Hx Pneumonia Yes Comment: Sarcoidosis Hx Cardiovascular Disorders Yes Hx Congestive Heart Failure Yes Hx Deep Vein Thrombosis Yes Hx Heart Attack Yes: unknown on year Hx Coronary Artery Bypass Graft Yes: quad Hx Hypertension Yes Hx Hypotension Yes Comment: high cholesterol Hx Neurological Disorders Yes Hx Cerebrovascular Accident Yes: Hx Gastrointestinal Disorders Yes Hx Irritable Bowel Yes Hx Genitourinary Disorders Yes Hx Renal Disease Yes Comment: blood clot L kidney Hx Endocrine Disorders Yes Hx Diabetes Yes Hx Musculoskeletal Disorders No Hx Psychiatric Problems No Hx Hematology/Oncology Disorders No Hx Blood Transfusions Yes Hx Blood Transfusion Reaction No History of multi drug resistant No infection Hx Influenza Vaccination No Social History Alcohol None Drug Use None Smoking Status Smoking Status Never smoker Family Medical History Any Significant Family Hx? No Hx Cancer Mother,Brother/Sister Hx Diabetes Mother,Brother/Sister Hx Heart Disease Father Hx Kidney Disease Brother/Sister Skin Risk Assessment Scale Sensory Perception Slightly Limited Moisture Risk Occasionally Moist Activity Risk Walks Occasionally Mobility Risk Slightly Limited Nutrition Risk Adequate Friction & Shear Risk No Apparent Problem Skin Risk Total Score (points) 18 Skin Risk Evaluation At Risk Wound Present on Admission Wound present upon admission? Yes: bruise/scab right knee Medications Acetaminophen (Tylenol 325mg) 650 mg PO Q6H PRN PRN Reason: PAIN - MILD(1-4)/FEVER Albuterol Sulfate (Ventolin Hfa) 1 - 2 puff INH Q4HR PRN PRN Reason: DIFFICULTY IN BREATHING Aspirin (Ecotrin (Ec)) 325 mg PO DAILY [facility] Atorvastatin Calcium (Lipitor) 80 mg PO 2100 [facility] Furosemide (Lasix Iv) 40 mg IVP DAILY [facility] Gabapentin (Neurontin) 300 mg PO BID [facility] Glipizide (Glucotrol) 5 mg PO BID [facility] Insulin Aspart (Novolog Flexpen) 5 unit SQ TIDAC [facility] Insulin Detemir (Levemir Flextouch) 30 unit SQ BID [facility] Losartan Potassium (Cozaar) 25 mg PO DAILY [facility] Midodrine (Midodrine Hcl) 2.5 mg PO TID PRN PRN Reason: HYPOTENSION Warfarin Sodium (Coumadin) 2.5 mg PO DAILY [facility] Problems CHF (congestive heart failure) (Acute) I50.9 11/27/19: Patient resting upon entry to room. Patient A&Ox4 slow to respond secondary to hx CVA, but with appropriate responses. Patient reported that over the past year she feels she has gained 30+ pounds, but more recently between 10- 15 within a week. Patient states her coordinates most of the medical care for her. Patient explained POC and possibility of staying another night to monitor her labs and to aid in diuresis. Patient tearful, stating she has her daughter's birthday green party tomorrow afternoon. Will discuss plan with when he arrives. Travel Screening - Travel/Exposure Within Last 30 Days Have you traveled within the last 30 days?: No - Travel/Exposure Within Last Year Have you traveled outside the [place] in the last year?: No - Additonal Travel Details Have you been exposed to anyone with a communicable illness?: No - Travel Symptoms Symptom Screening: None Review of Systems Constitutional: Denies: Chills, Fever, Malaise Eyes: Denies: Eye discharge ENT: Denies: Congestion Respiratory: Reports: Dyspnea. Denies: Cough Cardiovascular: Denies: Syncope Endocrine: Reports: Fatigue Gastrointestinal: Denies: Nausea Genitourinary: Denies: Dysuria Musculoskeletal: Denies: Arthralgia Neurological: Denies: Abnormal gait Past Medical History - SOCIAL HISTORY Smoking Status: Never smoker Alcohol Use: None Drug Use: None - RESPIRATORY Hx Respiratory Disorders: Yes Hx Pneumonia: Yes Comment:: Sarcoidosis - CARDIOVASCULAR Hx Cardio Disorders: Yes Hx CHF: Yes Hx Deep Vein Thrombosis: Yes Hx Heart Attack: Yes Hx Hypertension: Yes (midodrine PRN) Hx Hypotension: Yes Hx Coronary Artery Bypass Graft: Yes Comment:: high cholesterol - NEURO Hx Neuro Disorders: Yes Hx CVA: Yes (09/2018 with slowed speech and mild R hand/arm weakness residual) - GI Hx GI Disorders: Yes Hx Irritable Bowel: Yes - Hx Genitourinary Disorders: Yes Hx Renal Disease: Yes Comment:: blood clot L kidney - ENDOCRINE Hx Endocrine Disorders: Yes Hx Diabetes: Yes Hx Thyroid Disease: No - MUSCULOSKELETAL Hx Musculoskeletal Disorders: No - PSYCH Hx Psych Problems: No - HEMATOLOGY/ONCOLOGY Hx Hematology/Oncology Disorders: Yes Hx Blood Transfusions: Yes Hx Blood Transfusion Reaction: No Family Medical History Any Significant Family History?: Yes Hx Cancer: Mother, Brother/Sister Hx Diabetes: Mother, Brother/Sister Hx Heart Disease: Father Hx Kidney Disease: Brother/Sister H&P Meds/Allergies - Allergies Allergies: Allergies Allergy/AdvReac Type Severity Reaction Status Date / Time pioglitazone [From Actos] Allergy hypotension Verified 11/26/19 19:07 hx-told not to take it - Home Medications Home Medications Medication Instructions Recorded Confirmed Last Taken Furosemide [Lasix] 20 mg PO ASDIR PRN 11/26/19 11/26/19 Unknown Midodrine HCl 2.5 mg PO TID PRN 11/26/19 11/26/19 Unknown Warfarin Sodium 2.5 mg PO DAILY 11/26/19 11/26/19 11/25/19 Previous Rx's Medication Instructions Recorded Acetaminophen [Tylenol 500Mg Tab] 1,000 mg PO Q6H PRN tablet 11/01/19 Albuterol Sulfate [Albuterol 1 - 2 puff IH Q4HR PRN 14 Days 11/01/19 Sulfate Hfa] [email or web address] - Active Medications Active Medications: Current Medications Acetaminophen (Tylenol 325mg) 650 mg PO Q6H PRN PRN Reason: PAIN - MILD(1-4)/FEVER Albuterol Sulfate (Ventolin Hfa) 1 - 2 puff INH Q4HR PRN PRN Reason: DIFFICULTY IN BREATHING Aspirin (Ecotrin (Ec)) 325 mg PO DAILY [facility] Last Admin: 11/26/19 22:05 Dose: 325 mg Documented by: Atorvastatin Calcium (Lipitor) 80 mg PO 2100 [facility] Last Admin: 11/26/19 22:05 Dose: 80 mg Documented by: Furosemide (Lasix Iv) 40 mg IVP DAILY [facility] Gabapentin (Neurontin) 300 mg PO BID [facility] Last Admin: 11/26/19 22:05 Dose: 300 mg Documented by: Glipizide (Glucotrol) 5 mg PO BID [facility] Last Admin: 11/26/19 22:05 Dose: 5 mg Documented by: Insulin Aspart (Novolog Flexpen) 5 unit SQ TIDAC [facility] Last Admin: 11/27/19 08:37 Dose: 5 unit Documented by: Insulin Detemir (Levemir Flextouch) 30 unit SQ BID [facility] Last Admin: 11/26/19 22:05 Dose: 30 unit Documented by: Losartan Potassium (Cozaar) 25 mg PO DAILY [facility] Midodrine (Midodrine Hcl) 2.5 mg PO TID PRN PRN Reason: HYPOTENSION Warfarin Sodium (Coumadin) 2.5 mg PO DAILY [facility] Physical Exam - Vital Signs Vital Signs: Vital Signs - Last 24 Hrs Temp Pulse Pulse Resp BP BP BP 11/27/19 08:18 98.0 F 80 16 131/79 11/27/19 05:00 98.0 F 84 18 149/70 11/27/19 01:13 99.8 F H 86 18 150/77 11/26/19 20:25 97.9 F 89 18 154/69 11/26/19 20:00 11/26/19 19:32 90 158/79 11/26/19 18:49 98.5 F 90 16 154/119 Pulse Ox 11/27/19 08:18 96 11/27/19 05:00 97 11/27/19 01:13 94 L 11/26/19 20:25 95 11/26/19 20:00 95 11/26/19 19:32 98 11/26/19 18:49 94 L - General General Appearance: Alert, Oriented x3 (delayed responses, but appropriate), Cooperative, No acute distress Limitations: Other (Hx CVA) - Head Head exam: Atraumatic, Normocephalic, Normal inspection - Neck Neck exam: Normal inspection, Full ROM. negative: Tenderness - Respiratory Respiratory exam: Rales (BLL). negative: Normal lung sounds bilaterally, Respiratory distress, Rhonchi, Stridor, Wheezes - Cardiovascular Cardiovascular Exam: Regular rate, Normal rhythm, Normal heart sounds Peripheral Pulses: 2+: Radial (R), Radial (L), Dorsalis Pedis (R), Dorsalis Pedis (L) - GI/Abdominal GI/Abdominal exam: Soft, Normal bowel sounds. negative: Tenderness - Rectal Rectal exam: Deferred - exam: Deferred - Extremities Extremities exam: Normal inspection, Full ROM, Normal capillary refill, Pedal edema (1+ BLE to knees R>L). negative: Tenderness - Neurological Neurological exam: Alert, Oriented X3 (delayed responses, but appropriate) - Psychiatric Psychiatric exam: Flat affect, Normal mood - Skin Skin exam: Dry, Intact, Normal color, Warm Results - Labs Result Diagrams: 11/27/19 07:30 11/27/19 07:30 Labs Last 24 Hours: Laboratory Results - last 24 hr 11/26/19 11/26/19 11/26/19 19:00 19:00 19:00 WBC 8.3 RBC 4.05 Hgb 9.1 L Hct 32.3 L MCV 79.8 L MCH 22.4 L MCHC 28.2 L RDW 15.7 H Plt Count 341 MPV 11.3 H Gran % 67.0 Lymphocytes % 18.2 Monocytes % 9.4 H Eosinophils % 4.8 Basophils % 0.6 Absolute Neutrophils 5.59 PT 16.1 H INR 1.6 APTT 32.2 Sodium 144 Potassium 4.2 Chloride 107 Carbon Dioxide 24.0 Anion Gap 13.0 BUN 30 H Creatinine 1.6 H Estimated GFR 35 POC Glucose Random Glucose 139 H Calcium 8.2 L Total Bilirubin 0.20 AST 10 ALT 12 Alkaline Phosphatase 180 H Troponin T 0.030 H NT-Pro-B Natriuret Pep 3792.00 H Total Protein 6.2 L Albumin 3.1 L Globulin 3.1 Albumin/Globulin Ratio 1.0 L TSH 2.19 11/26/19 11/26/19 11/27/19 21:51 23:30 07:30 WBC 6.8 RBC 4.05 Hgb 9.1 L Hct 32.0 L MCV 79.0 L MCH 22.4 L MCHC 28.4 L RDW 15.7 H Plt Count 332 MPV 10.7 H Gran % 61.2 Lymphocytes % 23.0 Monocytes % 9.6 H Eosinophils % 5.6 Basophils % 0.6 Absolute Neutrophils 4.14 PT INR APTT Sodium Potassium Chloride Carbon Dioxide Anion Gap BUN Creatinine Estimated GFR POC Glucose 238 H Random Glucose Calcium Total Bilirubin AST ALT Alkaline Phosphatase Troponin T 0.025 H NT-Pro-B Natriuret Pep Total Protein Albumin Globulin Albumin/Globulin Ratio [facility] 11/27/19 11/27/19 07:30 07:30 WBC RBC Hgb Hct MCV MCH MCHC RDW Plt Count MPV Gran % Lymphocytes % Monocytes % Eosinophils % Basophils % Absolute Neutrophils PT INR APTT Sodium 142 Potassium 4.2 Chloride 107 Carbon Dioxide 23.0 Anion Gap 12.0 BUN 31 H Creatinine 1.5 H Estimated GFR 37 POC Glucose Random Glucose 105 Calcium 8.4 L Total Bilirubin AST ALT Alkaline Phosphatase Troponin T 0.031 H NT-Pro-B Natriuret Pep Total Protein Albumin Globulin Albumin/Globulin Ratio TSH - Imaging and Cardiology Chest x-ray Status: Report reviewed (LLL infiltrate remains, RLL atelectasis or residual infiltrate, small bilat pleural effusions) VTE H&P Assessment - Risk for VTE Risk for VTE: Yes Risk Level: Moderate Risk Assessment Date: 11/27/19 Risk Assessment Time: 11:07 VTE Orders Placed or Will Be Placed: Yes Plan - Detailed Diagnosis and Plan (1) CHF (congestive heart failure) Current Visit: Yes Status: Acute Qualifiers: Heart failure type: unspecified Heart failure chronicity: unspecified Qualified Code(s): I50.9 - Heart failure, unspecified Base Code: I50.9 - HEART FAILURE, UNSPECIFIED Comment: 11/27/19: -Patient reported 10-15 pound weight gain since Saturday with BLE edema/DUENAS/SOB -Denies dyspnea on examination this AM -1+ pitting edema BLE up to knees R > L -BNP 3792.00 in ER, recheck in AM -Troponin T 0.030 >> 0.025 >> 0.031, recheck in AM -BLE lung crackles -Daily weights 172 >> 167 -Echo 07/12/19 with 55-60% LVEF, sees Dr Goldstein for Cardiology -40mg IVP Lasix Daily (2) CKD (chronic kidney disease) Current Visit: Yes Status: Acute Base Code: N18.9 - CHRONIC KIDNEY DISEASE, UNSPECIFIED Comment: 11/27/19: -BUN 30 >> 31 -Creat 1.6 >> 1.5 -GFR 35 >> 37 -2000 ml fluid restriction -Monitoring d/t IV Lasix administration (3) Diabetes type 2, uncontrolled Current Visit: Yes Status: Acute Base Code: E11.65 - TYPE 2 DIABETES MELLITUS WITH HYPERGLYCEMIA Comment: 11/27/19: -A1C running in 8's from previous lab values -Home Glipizide, Gabapentin, Levemir and Novolog ordered -Accuchecks AC/HS -Cardiac Diet w/2000 ml fluid restriction (4) Hypertension Current Visit: Yes Status: Acute Base Code: I10 - ESSENTIAL (PRIMARY) HYPERTENSION Comment: 11/27/19: -BP ranging 140's-150's/70's -Home Cozaar and Midodrine (PRN) ordered -VS Q4H -Asymptomatic -Hx CVA (5) DVT prophylaxis Current Visit: Yes Status: Acute Base Code: Z29.9 - ENCOUNTER FOR PROPHYLACTIC MEASURES, UNSPECIFIED Comment: 11/27/19: -Coumadin D/C ok per PCP, informed PharmD -Lovenox 40mg SQ Daily -Nursing to encourage ambulation in room (6) Full code status Current Visit: Yes Status: Acute Base Code: Z78.9 - OTHER SPECIFIED HEALTH STATUS Comment: 11/27/19: -Full code status this admission
[2019-11-27] MEDS: ASPIRIN 325 MG TAB ENTERIC-COATED PO SCH (11:20)
[2019-11-27] MEDS: FUROSEMIDE IV 40MG/4ML VIAL IVP SCH (11:20)
[2019-11-27] MEDS: LOSARTAN POTASSIUM 25 MG TABLET PO SCH (11:20)
[2019-11-27] MEDS: GLIPIZIDE 5 MG TABLET PO SCH ×2 (11:20→22:10)
[2019-11-27] MEDS: GABAPENTIN 300 MG CAPSULE PO SCH ×2 (11:20→22:10)
[2019-11-27] MEDS: LEVEMIR FLEXTOUCH 100 UNIT/ML INSULIN PEN SQ SCH ×2 (11:23→22:08)
[2019-11-27] MEDS: ATORVASTATIN 20 MG TABLET PO SCH (22:11)
[2019-11-28] MEDS: FUROSEMIDE IV 40MG/4ML VIAL IVP SCH ×2 (08:06→10:04)
[2019-11-28] MEDS: NOVOLOG FLEXPEN (INSULIN ASPART) 100 UNITS/ML SQ SCH (08:08)
--- NOTE | 2019-11-28 08:16 | Discharge Summary ---
Providers Discharge Summary Date: 11/28/19 Date of admission: 11/26/19 20:18 Expected Date of Discharge: 11/28/19 Attending physician: SALENA LAMAR Primary care physician: SALENA LAMAR Physical Exam - Vital Signs Vital Signs: Vital Signs - Last 24 Hrs Temp Pulse Pulse Resp BP BP Pulse Ox 11/28/19 07:10 98.3 F 87 18 132/72 94 L 11/28/19 00:20 98.3 F 88 18 167/82 93 L 11/27/19 21:47 98.2 F 87 18 158/73 94 L 11/27/19 21:00 90 18 11/27/19 16:45 98.6 F 87 16 155/82 95 11/27/19 09:00 80 16 11/27/19 08:18 98.0 F 80 16 131/79 96 - General General Appearance: Alert, Oriented x3 (delayed responses, but appropriate), Cooperative, No acute distress Limitations: Other (Hx CVA) - Head Head exam: Atraumatic, Normocephalic, Normal inspection - Neck Neck exam: Normal inspection, Full ROM. negative: Tenderness - Respiratory Respiratory exam: Rales (BLL, improving). negative: Normal lung sounds bilaterally, Respiratory distress, Rhonchi, Stridor, Wheezes - Cardiovascular Cardiovascular Exam: Regular rate, Normal rhythm, Normal heart sounds Peripheral Pulses: 2+: Radial (R), Radial (L), Dorsalis Pedis (R), Dorsalis Pedis (L) - GI/Abdominal GI/Abdominal exam: Soft, Normal bowel sounds. negative: Tenderness - Rectal Rectal exam: Deferred - exam: Deferred - Extremities Extremities exam: Normal inspection, Full ROM, Normal capillary refill, Pedal edema (1+ RLE to knee, trace LLE to knee (improving)). negative: Tenderness - Back Back exam: Reports: Normal inspection. Denies: CVA tenderness (R), CVA tenderness (L) - Neurological Neurological exam: Alert, Oriented X3 (delayed responses, but appropriate) - Psychiatric Psychiatric exam: Flat affect, Normal mood - Skin Skin exam: Dry, Intact, Normal color, Warm Hospitalization - Hospitalization Admission Diagnosis: 1. Acute CHF - Problem List/Discharge Diagnosis (1) CHF (congestive heart failure) Current Visit: Yes Status: Acute Discharge Diagnosis: Heart failure type: unspecified Heart failure chronicity: unspecified Qualified Code(s): I50.9 - Heart failure, unspecified Base Code: I50.9 - HEART FAILURE, UNSPECIFIED Comment: 11/28/19: -Patient reported 10-15 pound weight gain since Saturday with BLE edema/DUENAS/SOB -Continues to deny dyspnea on examination this AM -1+ pitting edema RLE up to knee, trace edema LLE to knee -BNP 3792.00 in ER >> 2426.00 -Troponin T 0.030 >> 0.025 >> 0.031 >> 0.030 -Remains without CP, in no acute distress, cap refill and pulses WNL -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 -BLE lung crackles improving since yesterday -Daily weights 172 >> 167 >> 164.8 -Echo 07/12/19 with 55-60% LVEF, sees Dr Goldstein for Cardiology, will need to f/u after D/C -40mg IVP Lasix Daily, will continue daily Lasix at home until f/u appointments determine if LT therapy is needed (2) CKD (chronic kidney disease) Current Visit: Yes Status: Acute Base Code: N18.9 - CHRONIC KIDNEY DISEASE, UNSPECIFIED Comment: 11/28/19: -BUN 30 >> 31 >> -Creat 1.6 >> 1.5 >> -GFR 35 >> 37 >> -2000 ml fluid restriction -Monitoring d/t IV Lasix administration (3) Diabetes type 2, uncontrolled Current Visit: Yes Status: Acute Base Code: E11.65 - TYPE 2 DIABETES MELLITUS WITH HYPERGLYCEMIA Comment: 11/28/19: -A1C running in 8's from previous lab values -Home Glipizide, Gabapentin, Levemir and Novolog ordered -Patient running hypoglycemic at times: 65 at noon 11/27/19, 71 this AM (holding SA insulin this AM) -Accuchecks AC/HS -Cardiac Diet w/2000 ml fluid restriction (4) Hypertension Current Visit: Yes Status: Acute Base Code: I10 - ESSENTIAL (PRIMARY) HYPERTENSION Comment: 11/28/19: -BP ranging 140's-150's/70's -Home Cozaar and Midodrine (PRN) ordered -VS Q4H -Asymptomatic -Hx CVA (5) DVT prophylaxis Current Visit: Yes Status: Acute Base Code: Z29.9 - ENCOUNTER FOR PROPHYLACTIC MEASURES, UNSPECIFIED Comment: 11/28/19: -Coumadin D/C ok per PCP, informed PharmD -Lovenox 40mg SQ Daily -Nursing to encourage ambulation in room (6) Full code status Current Visit: Yes Status: Acute Base Code: Z78.9 - OTHER SPECIFIED HEALTH STATUS Comment: 11/28/19: -Full code status this admission - Hospitalization Course Disposition: Home, Self-Care Hospital Course: 11/27/19: Patient presented to ER for 4-5 (since Saturday) day BLE swelling, SOB and DUENAS. Patient reported leg swelling and 10-15 pound weight gain. She has CHF with a history of the same symptoms, reporting more mild exacerbations. Pt states she has Lasix prescribed as needed, but has not taken in a while. Was recently here for pneumonia in October. Patient reported having a colonoscopy approx. 2 weeks ago as well as an Echo within the last 6 months. Patient has a cannoneer, Dr. Goldstein that she sees. PCP: Dr Lamar ED Course: Vital Signs Temp Pulse Pulse Resp BP BP BP 11/27/19 08:18 98.0 F 80 16 131/79 11/27/19 05:00 98.0 F 84 18 149/70 11/27/19 01:13 99.8 F H 86 18 150/77 11/26/19 20:25 97.9 F 89 18 154/69 11/26/19 20:00 11/26/19 19:32 90 158/79 11/26/19 18:49 98.5 F 90 16 154/119 Pulse Ox 11/27/19 08:18 96 11/27/19 05:00 97 11/27/19 01:13 94 L 11/26/19 20:25 95 11/26/19 20:00 95 11/26/19 19:32 98 11/26/19 18:49 94 L Intake & Output 11/25/19 11/26/19 11/27/19 11/28/19 06:59 06:59 06:59 06:59 Intake Total 240 Balance 240 Weight 167 lb 4.8 oz Intake: Oral 240 Other: Date of Last Bowel 11/26/19 Movement Weight Measurement Method Standing Scale Laboratory 11/27/19 11/27/19 11/27/19 07:30 07:30 07:30 WBC 6.8 RBC 4.05 Hgb 9.1 L Hct 32.0 L MCV 79.0 L MCH 22.4 L MCHC 28.4 L RDW 15.7 H Plt Count 332 MPV 10.7 H Gran % 61.2 Lymphocytes % 23.0 Monocytes % 9.6 H Eosinophils % 5.6 Basophils % 0.6 Absolute Neutrophils 4.14 PT INR APTT Sodium 142 Potassium 4.2 Chloride 107 Carbon Dioxide 23.0 Anion Gap 12.0 BUN 31 H Creatinine 1.5 H Estimated GFR 37 POC Glucose Random Glucose 105 Calcium 8.4 L Total Bilirubin AST ALT Alkaline Phosphatase Troponin T 0.031 H NT-Pro-B Natriuret Pep Total Protein Albumin Globulin Albumin/Globulin Ratio TSH 11/26/19 11/26/19 11/26/19 23:30 21:51 19:00 WBC RBC Hgb Hct MCV MCH MCHC RDW Plt Count MPV Gran % Lymphocytes % Monocytes % Eosinophils % Basophils % Absolute Neutrophils PT INR APTT Sodium 144 Potassium 4.2 Chloride 107 Carbon Dioxide 24.0 Anion Gap 13.0 BUN 30 H Creatinine 1.6 H Estimated GFR 35 POC Glucose 238 H Random Glucose 139 H Calcium 8.2 L Total Bilirubin 0.20 AST 10 ALT 12 Alkaline Phosphatase 180 H Troponin T 0.025 H 0.030 H NT-Pro-B Natriuret Pep 3792.00 H Total Protein 6.2 L Albumin 3.1 L Globulin 3.1 Albumin/Globulin Ratio 1.0 L TSH 2.19 11/26/19 11/26/19 19:00 19:00 WBC 8.3 RBC 4.05 Hgb 9.1 L Hct 32.3 L MCV 79.8 L MCH 22.4 L MCHC 28.2 L RDW 15.7 H Plt Count 341 MPV 11.3 H Gran % 67.0 Lymphocytes % 18.2 Monocytes % 9.4 H Eosinophils % 4.8 Basophils % 0.6 Absolute Neutrophils 5.59 PT 16.1 H INR 1.6 APTT 32.2 Sodium Potassium Chloride Carbon Dioxide Anion Gap BUN Creatinine Estimated GFR POC Glucose Random Glucose Calcium Total Bilirubin AST ALT Alkaline Phosphatase Troponin T NT-Pro-B Natriuret Pep Total Protein Albumin Globulin Albumin/Globulin Ratio TSH Past Surgical History Date/Surgery Bypass quad 04/2017; Lung exploratory-; Ureteral stent ; Cataract removal Levar. ; Laser surgery to eyes Past Medical History Hx Respiratory Disorders Yes Hx Pneumonia Yes Comment: Sarcoidosis Hx Cardiovascular Disorders Yes Hx Congestive Heart Failure Yes Hx Deep Vein Thrombosis Yes Hx Heart Attack Yes: unknown on year Hx Coronary Artery Bypass Graft Yes: quad Hx Hypertension Yes Hx Hypotension Yes Comment: high cholesterol Hx Neurological Disorders Yes Hx Cerebrovascular Accident Yes: Hx Gastrointestinal Disorders Yes Hx Irritable Bowel Yes Hx Genitourinary Disorders Yes Hx Renal Disease Yes Comment: blood clot L kidney Hx Endocrine Disorders Yes Hx Diabetes Yes Hx Musculoskeletal Disorders No Hx Psychiatric Problems No Hx Hematology/Oncology Disorders No Hx Blood Transfusions Yes Hx Blood Transfusion Reaction No History of multi drug resistant No infection Hx Influenza Vaccination No Social History Alcohol None Drug Use None Smoking Status Smoking Status Never smoker Family Medical History Any Significant Family Hx? No Hx Cancer Mother,Brother/Sister Hx Diabetes Mother,Brother/Sister Hx Heart Disease Father Hx Kidney Disease Brother/Sister Skin Risk Assessment Scale Sensory Perception Slightly Limited Moisture Risk Occasionally Moist Activity Risk Walks Occasionally Mobility Risk Slightly Limited Nutrition Risk Adequate Friction & Shear Risk No Apparent Problem Skin Risk Total Score (points) 18 Skin Risk Evaluation At Risk Wound Present on Admission Wound present upon admission? Yes: bruise/scab right knee Medications Acetaminophen (Tylenol 325mg) 650 mg PO Q6H PRN PRN Reason: PAIN - MILD(1-4)/FEVER Albuterol Sulfate (Ventolin Hfa) 1 - 2 puff INH Q4HR PRN PRN Reason: DIFFICULTY IN BREATHING Aspirin (Ecotrin (Ec)) 325 mg PO DAILY [facility] Atorvastatin Calcium (Lipitor) 80 mg PO 2100 [facility] Furosemide (Lasix Iv) 40 mg IVP DAILY [facility] Gabapentin (Neurontin) 300 mg PO BID [facility] Glipizide (Glucotrol) 5 mg PO BID [facility] Insulin Aspart (Novolog Flexpen) 5 unit SQ TIDAC [facility] Insulin Detemir (Levemir Flextouch) 30 unit SQ BID [facility] Losartan Potassium (Cozaar) 25 mg PO DAILY [facility] Midodrine (Midodrine Hcl) 2.5 mg PO TID PRN PRN Reason: HYPOTENSION Warfarin Sodium (Coumadin) 2.5 mg PO DAILY [facility] Problems CHF (congestive heart failure) (Acute) I50.9 11/27/19: Patient resting upon entry to room. Patient A&Ox4 slow to respond secondary to hx CVA, but with appropriate responses. Patient reported that over the past year she feels she has gained 30+ pounds, but more recently between 10- 15 within a week. Patient states her coordinates most of the medical care for her. Patient explained POC and possibility of staying another night to monitor her labs and to aid in diuresis. Patient tearful, stating she has her daughter's birthday democrat tomorrow afternoon. Will discuss plan with when he arrives. 11/28/19: Patient still expressing concern with wanting to D/C today. Patient explained there is a possibility, but it is a slim one. Will recheck CBC/CMP/BNP at 1000. If patient hasn't improved over next couple hours, will keep another day for diuresis. Patient still with BLE edema and BLL crackles upon examination. Patient's Troponin remains indeterminant this AM with blood draw. Patient's to be in within the hour and will discuss POC with him. Patient still denying dyspnea, CP, DOBSON, SOB, and remains Afebrile. No new nursing concerns noted. 11/28/19 0900: Spoke with patient's and discussed concerns with discharging patient too soon. Educated on low sodium diet and fluid restriction as well as taking Lasix twice daily until patient f/u with Vice Chairman and PCP and then follow their recommendations. Discussed the fact that patient's Troponin is still indeterminant range and that her BNP is still relatively elevated, more than with previous testing. Patient's explained that with the patient's fluid overload how it currently is, she doesn't have as much room for weight gain and or being symptomatic before she would have to return to ER and we are attempting to avoid readmission. verbalized understanding and expressed desire to go home today for the birthday democrat, asking if she could go home for democrat and just come back to stay for IV Lasix. Informed both parties that it is against our policy and we would be held responsible if something happened to her while she was out of the hospital setting. stated that they then would like to go home still. Will provide with resources and educational material on D/C paperwork. Procedures: Imaging and X-Rays 11/26/19 19:02 CHEST 2 VIEWS [RAD] Stat Cardiology Procedures 11/26/19 19:02 Air Duct Mechanic NOW EKG NOW 11/26/19 20:28 Air Duct Mechanic .Continuous EKG QDX2@0600 Abnormal Labs: Abnormal Lab Results 11/26/19 11/26/19 11/26/19 Range/Units 19:00 19:00 19:00 Hgb 9.1 L (11.6-16.0) gm/dl Hct 32.3 L (35.0-47.0) % MCV 79.8 L (81-97) fl MCH 22.4 L (27-33) pg MCHC 28.2 L (32-36) g/dl RDW 15.7 H (11.5-14.5) % MPV 11.3 H (7.4-10.4) fl Monocytes % 9.4 H (0-9) % PT 16.1 H (9.5-12.1) SECONDS BUN 30 H (8-23) mg/dL Creatinine 1.6 H (0.5-0.9) mg/dL POC Glucose (70-110) mg/dL Random Glucose 139 H (74-109) mg/dL Calcium 8.2 L (8.8-10.2) mg/dL Alkaline Phosphatase 180 H (35-104) U/L Troponin T 0.030 H (0-0.010) ng/mL NT-Pro-B Natriuret Pep 3792.00 H (<125) pg/mL Total Protein 6.2 L (6.6-8.7) g/dL Albumin 3.1 L (4.0-5.0) g/dL Albumin/Globulin Ratio 1.0 L (1.1-1.8) 11/26/19 11/26/19 11/27/19 Range/Units 21:51 23:30 07:30 Hgb 9.1 L (11.6-16.0) gm/dl Hct 32.0 L (35.0-47.0) % MCV 79.0 L (81-97) fl MCH 22.4 L (27-33) pg MCHC 28.4 L (32-36) g/dl RDW 15.7 H (11.5-14.5) % MPV 10.7 H (7.4-10.4) fl Monocytes % 9.6 H (0-9) % PT (9.5-12.1) SECONDS BUN (8-23) mg/dL Creatinine (0.5-0.9) mg/dL POC Glucose 238 H (70-110) mg/dL Random Glucose (74-109) mg/dL Calcium (8.8-10.2) mg/dL Alkaline Phosphatase (35-104) U/L Troponin T 0.025 H (0-0.010) ng/mL NT-Pro-B Natriuret Pep (<125) pg/mL Total Protein (6.6-8.7) g/dL Albumin (4.0-5.0) g/dL Albumin/Globulin Ratio (1.1-1.8) 11/27/19 11/27/19 11/27/19 Range/Units 07:30 07:30 12:00 Hgb (11.6-16.0) gm/dl Hct (35.0-47.0) % MCV (81-97) fl MCH (27-33) pg MCHC (32-36) g/dl RDW (11.5-14.5) % MPV (7.4-10.4) fl Monocytes % (0-9) % PT (9.5-12.1) SECONDS BUN 31 H (8-23) mg/dL Creatinine 1.5 H (0.5-0.9) mg/dL POC Glucose 65 L (70-110) mg/dL Random Glucose (74-109) mg/dL Calcium 8.4 L (8.8-10.2) mg/dL Alkaline Phosphatase (35-104) U/L Troponin T 0.031 H (0-0.010) ng/mL NT-Pro-B Natriuret Pep (<125) pg/mL Total Protein (6.6-8.7) g/dL Albumin (4.0-5.0) g/dL Albumin/Globulin Ratio (1.1-1.8) 11/27/19 11/27/19 11/27/19 Range/Units 14:48 17:00 22:04 Hgb (11.6-16.0) gm/dl Hct (35.0-47.0) % MCV (81-97) fl MCH (27-33) pg MCHC (32-36) g/dl RDW (11.5-14.5) % MPV (7.4-10.4) fl Monocytes % (0-9) % PT (9.5-12.1) SECONDS BUN (8-23) mg/dL Creatinine (0.5-0.9) mg/dL POC Glucose 164 H 177 H 163 H (70-110) mg/dL Random Glucose (74-109) mg/dL Calcium (8.8-10.2) mg/dL Alkaline Phosphatase (35-104) U/L Troponin T (0-0.010) ng/mL NT-Pro-B Natriuret Pep (<125) pg/mL Total Protein (6.6-8.7) g/dL Albumin (4.0-5.0) g/dL Albumin/Globulin Ratio (1.1-1.8) 11/28/19 11/28/19 Range/Units 06:15 06:15 Hgb (11.6-16.0) gm/dl Hct (35.0-47.0) % MCV (81-97) fl MCH (27-33) pg MCHC (32-36) g/dl RDW (11.5-14.5) % MPV (7.4-10.4) fl Monocytes % (0-9) % PT (9.5-12.1) SECONDS BUN (8-23) mg/dL Creatinine (0.5-0.9) mg/dL POC Glucose (70-110) mg/dL Random Glucose (74-109) mg/dL Calcium (8.8-10.2) mg/dL Alkaline Phosphatase (35-104) U/L Troponin T 0.030 H (0-0.010) ng/mL NT-Pro-B Natriuret Pep 2426.00 H (<125) pg/mL Total Protein (6.6-8.7) g/dL Albumin (4.0-5.0) g/dL Albumin/Globulin Ratio (1.1-1.8) Condition at Discharge: (2) Stable VTE Discharge VTE Reason For No Overlap Therapy: Not Indicated Discharge Medications - Discharge Medications Prescriptions: Furosemide [Lasix] 20 mg PO BID 30 Days #60 mg Home Medications: Ambulatory Orders Losartan Potassium 1 tab PO DAILY 10/27/19 [Last Taken 11/26/19] Insulin Detemir [Levemir Flextouch] 30 unit SQ BID 10/30/19 [Last Taken 08/07] Acetaminophen [Tylenol 500Mg Tab] 1,000 mg PO Q6H PRN tablet 11/01/19 [Last Taken Unknown] Albuterol Sulfate [Albuterol Sulfate Hfa] 1 - 2 puff IH Q4HR PRN 14 Days hfa.aer.[email or web address] 11/01/19 [Last Taken Unknown] Midodrine HCl 2.5 mg PO TID PRN 11/26/19 [Last Taken Unknown] Furosemide [Lasix] 20 mg PO BID 30 Days #60 mg 11/28/19 [Last Taken Unknown] Discharge Plan - Discharge Instructions Activity at Discharge: Increase Activity as Tolerated Diet at Discharge: Advance to Usual Diet Instructions: Heart Failure (GEN), Low-Sodium Diet (GEN), Living With Your Heart Failure Monitoring System (GEN), DASH Eating Plan (DC) Additional Instructions: Appointment with Dr. Lamar for hospital follow up on 12/10 at 9:40AM at [facility]. Call Dr. Goldstein's office Saturday for appointment to f/u on CHF and indeterminate Troponin Low sodium (salt) diet Fluid restriction 2000ml (2 liters) Weigh yourself daily at the same time every day. If 3 pound weight gain in one day or 5 pound weight gain in one week present to Emergency Room Continue Lasix twice daily until f/u with Cardiology/PCP and follow their recommendations Quality Measures - Quality Measures Quality Measures: Documentation of Current Medications in Medical Record, Heart Failure, Screening for High Blood Pressure and F/U Documented - Current Medications Quality Measure: Measure #130: Documentation of Current Medications Documentation of Current Medications: <Current Medications Documented/Reviewed> [Y1005] - Blood Pressure Screening Quality Measure: Screening for High Blood Pressure and Follow-Up Documented Does Patient Have Any of the Following: Active Dx of HTN Blood Pressure Classification: Hypertensive Reading Systolic Measurement: 154 Diastolic Measurement: 119 Screening for High Blood Pressure: Patient Exclusion, Hx of HTN [G9814] - Heart Failure (ANDREW/ARB Therapy) Quality Measure: Heart Failure Left Ventricular Systolic Function: Unknown (55-60% per last Echo) ANDREW Inhibitor or ARB Therapy for LVSD: <ANDREW Inhibitor or ARB therapy prescribed or currently taken> [8955X] - Heart Failure (Beta-diane Therapy) Quality Measure: Heart Failure Left Ventricular Systolic Function: Unknown (55-60% per last Echo) Beta-Diane Therapy for LVEF < 40%: Not Eligible Reason for NOT Prescribing: Fluid Overload - Elder Abuse Suspicion Index EASI Reference Information: Davy REYES, Steve C, Jono D, May Horowitz.Development and validation of a tool to assist physicians identification of elder abuse: The Elder Abuse Suspicion Index (EASI ). Journal of Elder Abuse and Neglect, 2008; 20 (3): 276-300.
[2019-11-28] MEDS: ENOXAPARIN 40 MG/0.4 ML SYR SQ SCH ×2 (10:01→10:08)
[2019-11-28] MEDS: LOSARTAN POTASSIUM 25 MG TABLET PO SCH (10:01)
[2019-11-28] MEDS: GABAPENTIN 300 MG CAPSULE PO SCH (10:02)
[2019-11-28] MEDS: ASPIRIN 325 MG TAB ENTERIC-COATED PO SCH (10:02)
[2019-11-28] MEDS: GLIPIZIDE 5 MG TABLET PO SCH (10:02)
[2019-11-28] MEDS: LEVEMIR FLEXTOUCH 100 UNIT/ML INSULIN PEN SQ SCH (10:02)
[2019-11-28 11:30] LABS: ABSOLUTE NEUTROPHIL COUNT 5.63; BASO % 0.5 % (0-6); EOS % 4.3 % (0-6); GRAN % 69.2 % (47-80); HEMATOCRIT 32.9 % (35.0-47.0); HEMOGLOBIN 9.2 gm/dl (11.6-16.0); LYMPH % 16.7 % (16-45); MEAN CELL VOLUME 79.1 fl (81-97); MEAN CORPUSCULAR HEMOGLOBIN 22.1 pg (27-33); MEAN PLATELET VOLUME 11.7 fl (7.4-10.4); MONO % 9.3 % (0-9); PLATELET COUNT 315 K/uL (130-400); RED BLOOD COUNT 4.16 M/uL (3.80-5.40); RED CELL DISTRIBUTION WIDTH 15.7 % (11.5-14.5); WHITE BLOOD COUNT W/O DIFF 8.1 K/uL (4.2-12.2)
[2019-11-28 11:58] LABS: ALB/GLOB RATIO 0.8 (1.1-1.8); ALBUMIN 2.7 g/dL (4.0-5.0); BILIRUBIN,TOTAL 0.2 mg/dL (0.2-1.0); CREATININE 1.3 mg/dL (0.5-0.9)
== END 2019-11-28 11:20 | disposition home or self-care (01) ==
LOC: ER 18:47 → MEDSURG 20:18
PROVIDERS: ADMIT Internal Medicine; ATTEND Internal Medicine
DX: I50.9 Heart failure, unspecified (principal); N18.9 Chronic kidney disease, unspecified; E11.65 Type 2 diabetes mellitus with hyperglycemia; I10 Essential (primary) hypertension; I95.9 Hypotension, unspecified; E78.00 Pure hypercholesterolemia, unspecified; I25.2 Old myocardial infarction; Z95.5 Presence of coronary angioplasty implant and graft; Z86.718 Personal history of other venous thrombosis and embolism; Z86.73 Personal history of transient ischemic attack (TIA), and cerebral infarction without residual deficits
CPT/HCPCS: 36416; 71046; 80048; 80053; 82948; 83880; 84443; 84484; 85025; 85610; 85730; 93005; 93010; 96374; 99217; 99220; 99285; J1650; J1940